=== PATIENT | male | born 1940 ===

== ENCOUNTER 2018-12-02 10:03 | Inpatient (IN) | payer MEDICARE ==
[2018-11-08 13:11] VITALS: Ht 188 cm; Wt 87.7 kg
[~2018-12-02] VITALS: Ht 188 cm; Wt 87.7 kg
[~2018-12-02 10:03] MED LIST: DILT-145 PO; FURO-45 PO; FURO20TA19 PO; LEVO-85 PO; LEVO750T27 PO; LISI5TAB25 PO; POTA10CA40 PO; RIV10 PO; THYR65TA14 PO
[2018-12-02 15:00] VITALS: BP 97/56
--- NOTE | 2018-12-02 15:36 | History & Physical ---
History of Present Illness Chief Complaint Rehabilitation History of Present Illness 77yo male with PMHx significant for recent pneumonia, atrial fibrillation, and mitral valve repair with Mitraclip on 11/29/18 at [facility]. He states he is doing "much better" since the procedure. He denies CP. No dyspnea at rest. No groin pain/swelling/bleeding. He has been working with PT/OT and ongoing rehab was recommended. History Problems: (1) History of mitral valve repair Status: Resolved (2) Chronic atrial fibrillation Status: Chronic (3) Hypothyroidism Status: Chronic (4) Mitral regurgitation Status: Chronic (5) Community acquired bacterial pneumonia Status: Acute (6) Moderate to severe pulmonary hypertension (7) (HFpEF) heart failure with preserved ejection fraction Status: Chronic Home Meds Active Scripts Levofloxacin 750 Mg Tab (LEVOFLOXACIN 750 MG TAB) 750 Mg Tablet, 750 MG PO DAILY for 10 Days, #10 TAB Prov:ROSE VEROJAZZY DO 11/11/18 Diltiazem Hcl (CARDIZEM CD) 180 Mg Cap.er.24h, 180 MG PO QDAY for 30 Days, #30 TAB Prov:[facility],JAZZY DO 11/11/18 Rivaroxaban (XARELTO 10 MG TAB (OR EQUIV)) 10 Mg Tablet, 20 MG PO QPM for 30 Days, #30 TAB Prov:ROSE STILL,JAZZY DO 11/11/18 Furosemide (FUROSEMIDE) 20 Mg Tablet, 1 TAB PO DAILY for 30 Days, #30 TAB Prov:ROSE STILL,JAZZY DO 11/11/18 Allergies: Coded Allergies: Penicillins (Verified Allergy, Unknown, 11/07/18) Hx Smoking: Yes Smoking Status: Former Smoker Hx Alcohol Use: No Hx Substance Use Disorder: No Review of Systems Constitutional: No Fever, No Chills Neurological: Weakness (generalized) Cardiovascular: No Chest Pain Exam Vital Signs Vital Signs Date Time Temp Pulse Resp B/P (MAP) Pulse Ox O2 Delivery O2 Flow Rate FiO2 12/02/18 15:00 97.6 81 18 97/56 (70) 91 Room Air General Appearance: Alert, Awake Neuro: No Gross deficits, Other (hard of hearing) ENT: Oropharynx Clear Neck: No Masses Cardiovascular: Other (Irregular with systolic murmur) Respiratory: Other (diminished breath sounds at bases) Chest: No Tenderness GI: Abd Soft and Non-Tender Extremities: Warm, Perfused, Edema (1-2+ both LE from mid-swanson distal) Integumentary: Generalized Fragile Skin Psych: Alert & Oriented X3 Assessment and Plan Problems: (1) History of mitral valve repair Status: Resolved Assessment & Plan: He appears to be doing fairly well at this point. Will plan on continuing PT/OT. He will follow up with cardiology in approximately 2 weeks. (2) (HFpEF) heart failure with preserved ejection fraction Status: Chronic Assessment & Plan: He has some persistent LE edema. Will continue metoprolol and Lasix. Watch labs. (3) Hypothyroidism Status: Chronic Assessment & Plan: He had his thyroid replacement stopped approximately 3 weeks ago. Will check TSH. (4) Chronic atrial fibrillation Status: Chronic Assessment & Plan: He appears to be in atrial fibrillation by exam. Will continue his metoprolol and Xarelto. Copies to: [facility] ; Venous Thromboembolism Antithrombotics Is Pt On Any Antithrombotics?: Yes (Xarelto) JUN DEL VALLE MD Dec 02, 2018 15:36
--- NOTE | 2018-12-02 15:37 | NUR ---
Physical Therapy Impression PT eval complete. Please see EMR Other Reports for details. Physical Therapy Goals 1. Independent bed mobility with HOB elevated but no rail. 2. Mod I transfers with either no assistive device or trekking poles. 3. Mod I gait x 150' with trekking poles. 4. Mod I ascend/descend 5 stairs with trekking poles and rail. 5. Independently pick object up off floor. 6. Improve TUG by at least 2 seconds ( <50 seconds) as indicator of decreased fall risk. Patient's Goals
--- NOTE | 2018-12-02 15:44 | Medical Nutrition Therapy ---
Nutrition Anthropometrics Height (Inches): 74 Weight (Pounds): 198 (on med unit) BMI: 25.4 Ja Nutrition Score: Ja Nutrition Risk Score: Dietary Referral Nutrition Risk Factors: Unplanned Loss >10lbs Nutrition Risk Comment: Nutritional Diagnosis Nutritional Risk Acuity 2: Pr Appetite > 3d Nutritional Risk Acuity 3: Weight Loss (stated wt loss) Nutritional Acuity: 2-Moderate Nutrition Diagnosis: Inadequate Food Intake Nutrition Etiology: Physiological Causes Nutrition Problem/Etiology/Sym: Inadequate food intake as related to discomfort post eating as evidenced by pt reported early satiety and wt loss. Adjusted Energy Requirement Re: 2200 (M- St J) Protein Requirement: 90 (1gm/kg) Fluid Requirement: 2200 (1ml/kcal) Diet Type: Cardiac Nutrition Intervention: Cont diet as ordered, Encourage intake, HS snack Additional Diet Restrictions: OFFER NUTR SUPPLEMENT Nutrition Monitoring & Eval Nutrition Goals: Eat 75-100% Meal RD Patient Assessment Time: [address] Assessment Type: RD Assessment Follow Up Date: Dec 10, 2018 Nutritional Comment: 12/02 Pt admitted s/p pneumonia and a-fib. Pt on cardiac diet. Pt reports wt loss and was eating 0-25% of meals on med floor. Will offer nutr supplment to increase kcal and protein intake. Pt was on duiretic on med unit. No meds ordered at this time. Pt has 1+ edema on 11/10- pt may demonstrate wt loss when edema resolved. Nutr significant labs: Alb 3, BUN 40, creatinine 0.9, BNO 1350. Will cont to monitor and encourage intake. MARSHA ZAMORA Dec 02, 2018 15:32
--- NOTE | 2018-12-02 16:44 | NUR ---
Occupational Therapy Impression OT evaluation completed with PT. Please refer to reports for details regarding plan of care and goals. Occupational Therapy Goals 1. Pt. to perform toileting activities with Mod I. 2. Pt. to perform showering activities with I. 3. Pt. to perform light meal prep activities with I. 4. Pt. to perform grooming activities, standing sink front, with I. 5. Pt. to increase Reynold Index of ADL score by 2 points. Patient's Goal
--- NOTE | 2018-12-02 16:54 | OT ECF NOTE ---
Type of Note: Initial Note Primary Medical Diagnosis: Weakness, mitral valve clipping surgery on 11/28/18. Occupational Therapy Evaluation Date: 11-22-18 SUBJECTIVE: Prior Hospitalization: [facility] 11/28/18 to 12-02-18. Prior Level of Function: Independent, taking "spit" bathes. Prior Living Status: Single level house Alone Community Services: Independent Home Accessibility: Stairs with rails Equipment Owned: CAD Besting [employer] Medical Complications/Past Medical History: Please refer to chart for details. Psychosocial Support: Supportive children, but they do not reside in [place] and pt. refuses to move to where they live. Pain Scale (0-10): No Pain stated during initial evaluation. OBJECTIVE: Strength: MMT: Right Left Shoulder Flexion [*] [*] Elbow Flexion [*] [*] Wrist Extension [*] [*] Getter Welder [*] [*] (5= normal, 4= good, 3= fair, 2= poor, 1= trace) ROM: Both upper extremities WFL Functional Transfer: Assistive Device: Front wheeled walker Gait belt Transfer Ability: Minimum assistance 1-person assist ADL: Upper body dressing: Assistive device: Upper body dressing ability: Set-up Lower body dressing: Assistive device: Lower body dressing ability: Toileting: Assistive device: Toileting ability: NT Grooming/hygiene: Assistive device: Grooming ability: n/T Bathing: Assistive device: Bathing ability: N/t Standardized Assessment: Reynold Index of Activities of Daily Living- Pt. scored 13/20 on this index on 12-02-18. ASSESSMENT: Pt. is a 77 year old male who was admitted from [facility] on 12/02/18 to [facility] for continued rehab to address weakness. Pt. underwent a mitral valve clipping procedure on 11/28/18 and returns to [place] with the assistance of his daughter (Acacia- who resides in [place]) and son. Pt. currently resides in [place], alone, in home that currently has no running water. Pt. had been ambulating with the use of trecking poles prior to his surgery and had been sleeping on a cot. Daughter is currently addressing the plumbing issue at his home and has bought him a new box spring and mattress. Pt. will need to be very independent, prior to d/c to home. Problem List/Current Limitations: Decreased activity marielena Generalized weakness Short Term Goals: 1. Pt. to perform toileting activities with Mod I. 2. Pt. to perform showering activities with I. 3. Pt. to perform light meal prep activities with I. 4. Pt. to perform grooming activities, standing sinkfront, with I. 5. Pt. to increase Reynold Index of ADL score by 2 points. Care Home Goals: Return home. Patient Goals: Return home Rehabilitation Prognosis: Good Barriers to Discharge: Current condition of home (no running water) PLAN: The patient will benefit from skilled occupational therapy services 5 times per week for 2 weeks including: Ther ex ADL training Safety training Ther act IADL training Transfer training Adaptive equip training Bed mobility Thank you for this referral. If you have any questions, concerns, or comments about this report or plan, please contact me at . Kimberly Bravo OTR/L Occupational Therapist [facility]
[2018-12-02] MEDS: RIVAROXABAN 10 MG TAB PO SCH (18:27)
[2018-12-02] MEDS: FERROUS SULFATE 325 MG TAB PO SCH (18:27)
[2018-12-02] MEDS ORDERED: THYR65TA14 PO (20:29)
[2018-12-02] MEDS ORDERED: RIVA20TA PO (20:34)
[2018-12-02] MEDS ORDERED: FURO-45 PO (20:34)
[2018-12-02] MEDS: GUAIFENESIN/DEXTROMETHORPHAN 5 ML PO SCH (21:29)
[2018-12-03] MEDS: GUAIFENESIN/DEXTROMETHORPHAN 5 ML PO SCH ×6 (01:00→20:32)
[2018-12-03 06:20] LABS: PLATELET COUNT, AUTOMATED 206 K/uL (150-450)
[2018-12-03] MEDS: ASPIRIN 81 MG ENTERIC COATED PO SCH (08:33)
[2018-12-03 08:35] VITALS: BP 88/56
[2018-12-03] MEDS: FLUTICASONE PROP 0.05% 16 GM SCH (09:00)
[2018-12-03] MEDS: LACTOBACILLUS COMBO NO 10 PO SCH (09:00)
[2018-12-03] MEDS: METOPROLOL SUCC XL 25 MG TABCR PO SCH (09:00)
[2018-12-03] MEDS: KELP PO SCH (09:00)
[2018-12-03] MEDS: FUROSEMIDE 40 MG TAB PO SCH (09:00)
[2018-12-03] MEDS: LOSARTAN POTASSIUM 50 MG TAB PO SCH (09:00)
[2018-12-03] MEDS: FERROUS SULFATE 325 MG TAB PO SCH ×3 (09:12→17:33)
--- NOTE | 2018-12-03 09:12 | PT ECF NOTE ---
Type of Note: Initial Note Primary Medical Diagnosis: Weakness s/p mitral valve repair with Mitraclip on 11/29/18. Physical Therapy Evaluation Date: 12/02/18 SUBJECTIVE: Prior Hospitalization: [facility] 10/2018 for pneumonia; [facility] for cardiac procedure 11/29/18-12/02/18. Prior Level of Function: Pt previously lived alone and was Mod I for mobility using trekking poles. Per Pt's daughter, Pt has not had running water in his home for approximately 1 year and she is currently trying to address this while her dad is in the hospital. Pt's daughter also reports her father, "will not use a RW, only the trekking poles". Prior Living Status: Single level house with 5 stairs with rail, Alone Community Services: No known needs Home Accessibility: Stairs with rails Equipment Owned: Trekking poles, elevated toilet seat (pt currently does not have running water in his home) Medical Complications/Past Medical History: Please see [employer] Psychosocial Support: Supportive son (living in [place]) and daughter (living in [place]). Pain Scale (0-10): Pt denies pain currently OBJECTIVE: Bed Mobility: Not observed. Transfers: Minimum assistance Assistive Device: Front wheeled walker Gait: CGA x 140' with RW, slow kiki noted, SOB noted. HR WNL, SO2 WNL. Assistive device: Front wheeled walker Timed Up and Go (>12 seconds indicated increased risk for falls): 52.65 seconds with Min A to stand ASSESSMENT: Pt presents with decreased independence with functional mobility and also decreased tolerance to activity limiting Pt's ability to be functionally independent with mobility, ADLs, and IADLs compared to prior level of function. Pt will benefit from skilled PT for strengthening, functional mobility training, and endurance training to meet the energy demands of mobility and performing ADLs. Problem List/Current Limitations: Decreased activity tolerance, Decreased strength, Generalized weakness, Shortness of breath Short Term Goals: 1. Independent bed mobility with HOB elevated but no rail. 2. Mod I transfers with either no assistive device or trekking poles. 3. Mod I gait x 150' with trekking poles. 4. Mod I ascend/descend 5 stairs with trekking poles and rail. 5. Independently pick object up off floor. 6. Improve TUG by at least 2 seconds ( <50 seconds) as indicator of decreased fall risk. Senior Living Goals: Return to prior living arrangements. Patient Goals: Return home. Rehabilitation Prognosis: Good Barriers for Discharge: Current condition of Pt's living environment, ie) no running water. PLAN: The patient will benefit from skilled physical therapy services 5 times per week for 2 weeks including: Therapeutic Exercise, Therapeutic Activities, Transfer Training, Gait Training, Stair Training, Manual Therapy, ADL's, Safety Training, Neuromuscular Re-educ., Pt/Caregiver Training, Bed Mobility Thank you for this referral. If you have any questions, concerns, or comments about this report or plan, please contact me at . Na Tabor, PT, DPT, GCS MTDD
[2018-12-03] MEDS: TURMERIC 500 MG PO SCH (09:16)
[2018-12-03] MEDS: MULTIVITAMINS TAB PO SCH (09:16)
[2018-12-03] MEDS: POTASSIUM CHL 10 MEQ TABCR PO SCH (09:22)
[2018-12-03 16:15] VITALS: BP 87/56
[2018-12-03] MEDS: RIVAROXABAN 10 MG TAB PO SCH (17:33)
[2018-12-04] MEDS: GUAIFENESIN/DEXTROMETHORPHAN 5 ML PO SCH ×6 (01:00→20:23)
[2018-12-04 08:00] VITALS: BP 111/66
[2018-12-04] MEDS: MULTIVITAMINS TAB PO SCH (09:16)
[2018-12-04] MEDS: FERROUS SULFATE 325 MG TAB PO SCH ×3 (09:16→17:07)
[2018-12-04] MEDS: POTASSIUM CHL 10 MEQ TABCR PO SCH (09:16)
[2018-12-04] MEDS: FUROSEMIDE 40 MG TAB PO SCH (09:17)
[2018-12-04] MEDS: LOSARTAN POTASSIUM 50 MG TAB PO SCH (09:17)
[2018-12-04] MEDS: METOPROLOL SUCC XL 25 MG TABCR PO SCH (09:17)
[2018-12-04] MEDS: ASPIRIN 81 MG ENTERIC COATED PO SCH (09:17)
[2018-12-04] MEDS: KELP PO SCH (09:17)
[2018-12-04] MEDS: LACTOBACILLUS COMBO NO 10 PO SCH (09:18)
[2018-12-04] MEDS: TURMERIC 500 MG PO SCH (09:18)
[2018-12-04] MEDS: FLUTICASONE PROP 0.05% 16 GM SCH (09:19)
[2018-12-04 10:29] VITALS: BP 98/53
--- NOTE | 2018-12-04 12:55 | SPEECH INITIAL EVALUATION ---
INITIAL SPEECH THERAPY EVALUATION REPORT Cognitive Communication Assessment Patient Name: Samuel Izaguirre Date of Evaluation: 12/04/2018 Patient : 38 Clinician: Niesha Fang M.S., CCC-FLIGHT COMMUNICATIONS OFFICER Treatment Dx: WNL; no cognitive linguistic deficits BACKGROUND The patient is a 77 year old male admitted to [facility] for further rehab following hospitalization at [facility] for mitral valve repair. Per chart review, the pt has been residing in a private residence with no running water for approximately one year. He has been sleeping on a cot. A ST consult was requested to analyze cognitive communicative status due to concern for appropriate decision making and ability to safely discharge to home environment. LANGUAGE/COGNITION The [place]one Cognitive Assessment (MOCA), Version 7.2 was administered with the following results: - Total Score (TS): 28/30 = WNL -Cognitive Domains Demonstrating Mild Deficits: verbal fluency, speed of processing -Cognitive Domains Demonstrating Strength: attention, orientation, immediate memory, delayed memory, problem solving, executive functioning, visuospatial skills, mental abstraction, calculations, problem solving. Functional Communication Deficits: The patient has adequate, functional cognitive/communicative skills for safe discharge. However, modifications to home environment will be necessary. SPEECH: WFL. VOICE: WFL. DYSPHAGIA: WFL. Screened w/ thins. No c/o dysphagia. SUMMARY COGNITIVE / LINGUISTIC ASSESSMENT Pt achieved a 28/30 on the MOCA assessment, which falls within normal limits for cognitive linguistic function. The pt was well-oriented to all concepts, including medical history, etiology, and pathology. The pt put forth good effort throughout encounter, sustained attention in the presence of competing environmental stimuli, demonstrated independent use of short-term memory strategies, and exhibited reasonable problem solving skills. Intermittent word finding deficits were noted during both formal and informal tasks. However, the pt independently utilized appropriate strategies to support infrequent instances of anomia. The pt also demonstrated mild response delay when presented with assessment prompts and interview questions. Processing delay did not result in cognitive linguistic errors. In fact, spending extra time on assessment tasks appeared to assist in response accuracy and error awareness. Condition of the pts home living environment does not appear reflective of cognitive linguistic deficits or inability to make reasonable decisions. From a strictly cognitive linguistic stand point, the pt would be safe for discharge without further ST interventions. Skilled services do not appear to be warranted at this time. Please do not hesitate to contact ST with questions or concerns. Thank you for this referral. Call [phone] Niesha Fang M.S., CCC-FLIGHT COMMUNICATIONS OFFICER [*] [facility]AHIDA
--- NOTE | 2018-12-04 12:57 | NUR ---
ST EVALUATION Assessment complete. Further interventions not warranted. Cognitive linguistic status is WNL. Please see report for detailed information. MOCA Total Score: 2830
--- NOTE | 2018-12-04 13:11 | NUR ---
Occupational Therapy Impression Mod (I) supine to sit with bed rail. CGA ambulation in room with RW. No loss of balance, incorporating tight turns. (I) UB dressing. Independent threading LB clothing. SBA pull clothing over hips. SBA toileting. SBA grooming/hygiene standing sinkfront. SpO2 and HR WNL on 1L. No c/o of dizziness with mobility/ADLs. Continue POC to improve tolerance for ADLs/IADLs. Occupational Therapy Goals 1. Pt. to perform toileting activities with Mod I. 2. Pt. to perform showering activities with I. 3. Pt. to perform light meal prep activities with I. 4. Pt. to perform grooming activities, standing sinkfront, with I. 5. Pt. to increase Reynold Index of ADL score by 2 points. Patient's Goal
--- NOTE | 2018-12-04 13:27 | NUR ---
Physical Therapy Impression Pt able to stand from chair today with CGA/SBA. Pt ambulated using his personal walking sticks (2) and CGA. Pt ambulated with extremely slow kiki. Pt able to maintain SO2 >88% on room air during PT tx, nurse notified. Encouraged additional ambulation after rest break, Pt declined. Physical Therapy Goals 1. Independent bed mobility with HOB elevated but no rail. 2. Mod I transfers with either no assistive device or trekking poles. 3. Mod I gait x 150' with trekking poles. 4. Mod I ascend/descend 5 stairs with trekking poles and rail. 5. Independently pick object up off floor. 6. Improve TUG by at least 2 seconds ( <50 seconds) as indicator of decreased fall risk. Patient's Goals
[2018-12-04 16:45] VITALS: BP 90/50
[2018-12-04] MEDS: RIVAROXABAN 10 MG TAB PO SCH (17:07)
[2018-12-04 19:35] VITALS: BP 89/58
[2018-12-05] MEDS: GUAIFENESIN/DEXTROMETHORPHAN 5 ML PO SCH ×6 (01:00→20:28)
[2018-12-05 08:30] VITALS: BP 103/61
[2018-12-05] MEDS ORDERED: FUROSEMIDE 40 MG TAB PO SCH (09:00)
[2018-12-05] MEDS: LOSARTAN POTASSIUM 50 MG TAB PO SCH (09:00)
[2018-12-05] MEDS: METOPROLOL SUCC XL 25 MG TABCR PO SCH (09:30)
[2018-12-05] MEDS: FERROUS SULFATE 325 MG TAB PO SCH ×3 (09:30→17:09)
[2018-12-05] MEDS: ASPIRIN 81 MG ENTERIC COATED PO SCH (09:30)
[2018-12-05] MEDS: MULTIVITAMINS TAB PO SCH (09:30)
[2018-12-05] MEDS: POTASSIUM CHL 10 MEQ TABCR PO SCH (09:30)
[2018-12-05] MEDS: KELP PO SCH (09:31)
[2018-12-05] MEDS: FLUTICASONE PROP 0.05% 16 GM SCH (09:32)
[2018-12-05] MEDS: TURMERIC 500 MG PO SCH (09:32)
[2018-12-05] MEDS: LACTOBACILLUS COMBO NO 10 PO SCH (09:32)
--- NOTE | 2018-12-05 09:38 | NUR ---
Physical Therapy Impression Pt demonstrates fair balance with ambulation with use of bilateral trekking poles. Emphasis on obstacle negotiation and turns with ambulation today, pt with no LOB, but continues to ambulate with a slowed kiki. Pt reporting L) knee pain with ambulation. SPO2 WNL on room air during mobility. PT instructed patient in seated LE ther-ex with emphasis on eccentric control and achieving full ROM with exercises. Pt reported increased L) knee pain with repetition, PT instructed patient to avoid exacerbating knee pain on that side. Physical Therapy Goals 1. Independent bed mobility with HOB elevated but no rail. 2. Mod I transfers with either no assistive device or trekking poles. 3. Mod I gait x 150' with trekking poles. 4. Mod I ascend/descend 5 stairs with trekking poles and rail. 5. Independently pick object up off floor. 6. Improve TUG by at least 2 seconds ( <50 seconds) as indicator of decreased fall risk. Patient's Goals
--- NOTE | 2018-12-05 10:30 | NUR ---
5-day MDS completed with pt. C: 15, D: 01, E: no concerns, Q: pt plans to DC to community, pt provided with information, but no referrals made yet. WIll continue to follow for DC needs.
--- NOTE | 2018-12-05 11:20 | NUR ---
Occupational Therapy Impression Pt perseverating on blood pressure medications throughout tx. Asymptomatic with mobility, SpO2 >90% on room air. Nursing aware and addressing pt medication questions. Improved endurance and mobility this date with use of trekking poles. Pt will continue to benefit from OT services to improve balance and safety for ADLs/functional mobility. Occupational Therapy Goals 1. Pt. to perform toileting activities with Mod I. 2. Pt. to perform showering activities with I. 3. Pt. to perform light meal prep activities with I. 4. Pt. to perform grooming activities, standing sinkfront, with I. 5. Pt. to increase Reynold Index of ADL score by 2 points. Patient's Goal
--- NOTE | 2018-12-05 13:32 | Hospitalist Progress Note ---
Subjective Progress Notes Subjective The patient has many questions about his medications. He denies any new issues. Physical Exam Vital Signs Date Time Temp Pulse Resp B/P (MAP) Pulse Ox O2 Delivery O2 Flow Rate FiO2 12/05/18 08:30 98.0 70 16 103/61 (75) 95 Room Air 12/05/18 05:30 1.0 Intake and Output 12/05/18 07:00 Intake Total 1800 ml Output Total 750 ml Balance 1050 ml Intake Oral 1800 ml Output Urine Total 750 ml # Voids 4 # Bowel Movements 2 General Appearance: Alert, Awake, No Acute Distress Neuro: No Gross deficits Eyes: PERRLA Cardiovascular: Regular Rate and Rhythm (With 2/6 JORDI heard best at the apex.), Other (Edema to mid swanson, 2+ at the ankle.) Respiratory: No Respiratory Distress, Clear to Auscultation GI: Soft and Non-Tender Extremities: Edema (See CV above.) Integumentary: Generalized Fragile Skin Psych: Appropriate Mood & Affect Result Diagram: 12/03/1860912/03/18609 Assessment and Plan Problems: (1) History of mitral valve repair Status: Resolved Assessment & Plan: He appears to be doing fairly well at this point. Will plan on continuing PT/OT. He will follow up with cardiology in approximately 2 weeks. (2) (HFpEF) heart failure with preserved ejection fraction Status: Chronic Assessment & Plan: He has some persistent LE edema. His BUN was elevated on admission and his BP has been low. Will decrease his Lasix to 20mg daily and continue to monitor his edema and weight. He is now in a regular rhythm which will also be beneficial. (3) Hypothyroidism Status: Chronic Assessment & Plan: He had his thyroid replacement stopped approximately 3 weeks ago. His TSH is 23. Looking back, it was elevated in October at 7 and his dose was not changed due to being acutely ill. He is on "nature thyroid" 4.5-65mg tablets daily (292.5mg). This is equivalent to 48.75mcg of levothyroxine. [facility] does not have his thyroid medication on formulary. Since his TSH has been consistently high, will place him on 50mcg of levothyroxine here. He plans to follow up with MICHAEL Davis, shortly after discharge. She can recheck his TSH in 4-6 weeks and adjust his dose as needed. (4) Chronic atrial fibrillation Status: Chronic Assessment & Plan: He appeared to be in atrial fibrillation by exam on admission. Now he is in a regular rhythm. With his history, he may be going in and out of a fib. Will continue his metoprolol and Xarelto. He will follow up with cardiology after discharge. Time Spent on Plan of Care: < 30 min JIMMY DEL VALLE MD Dec 05, 2018 13:32
[2018-12-05] MEDS ORDERED: POLYETHYLENE GLYCOL 17 GM PKT PO PRN (13:40)
[2018-12-05] MEDS ORDERED: MAGNESIUM HYDROXIDE* 30ML UDCP PO PRN (13:40)
[2018-12-05] MEDS ORDERED: BISACODYL 10 MG SUPP PR PRN (13:40)
[2018-12-05] MEDS: DOCUSATE SODIUM 100 MG CAP PO SCH ×2 (14:09→20:28)
[2018-12-05] MEDS: LEVOTHYROXINE SOD 0.05 MG TAB PO SCH (14:09)
[2018-12-05 16:00] VITALS: BP 89/60
[2018-12-05] MEDS: RIVAROXABAN 10 MG TAB PO SCH (17:09)
[2018-12-05] MEDS: SALINE 0.65% NAS SPR 44 ML BTL PRN ×2 (17:12→20:28)
[2018-12-05 20:50] VITALS: BP 90/60
[2018-12-06] MEDS: GUAIFENESIN/DEXTROMETHORPHAN 5 ML PO SCH ×6 (01:00→21:00)
[2018-12-06] MEDS: LEVOTHYROXINE SOD 0.05 MG TAB PO SCH (05:46)
[2018-12-06] MEDS ORDERED: LEVOTHYROXINE SOD 0.05 MG TAB PO SCH (06:00)
[2018-12-06 06:30] LABS: PLATELET COUNT, AUTOMATED 240 K/uL (150-450)
--- NOTE | 2018-12-06 07:36 | NUR ---
Pt daily weight done this AM fully dressed and eating breakfast.
[2018-12-06 08:00] VITALS: BP 93/65
[2018-12-06] MEDS: LOSARTAN POTASSIUM 50 MG TAB PO SCH (09:00)
[2018-12-06] MEDS: METOPROLOL SUCC XL 25 MG TABCR PO SCH (09:00)
[2018-12-06] MEDS: KELP PO SCH (09:00)
[2018-12-06] MEDS: FUROSEMIDE 20 MG TAB PO SCH (09:00)
[2018-12-06] MEDS: FLUTICASONE PROP 0.05% 16 GM SCH (09:11)
[2018-12-06] MEDS: ASPIRIN 81 MG ENTERIC COATED PO SCH (09:12)
[2018-12-06] MEDS: FERROUS SULFATE 325 MG TAB PO SCH ×3 (09:12→17:24)
[2018-12-06] MEDS: POTASSIUM CHL 10 MEQ TABCR PO SCH (09:12)
[2018-12-06] MEDS: DOCUSATE SODIUM 100 MG CAP PO SCH ×2 (09:12→21:00)
[2018-12-06] MEDS: TURMERIC 500 MG PO SCH (09:12)
[2018-12-06] MEDS: MULTIVITAMINS TAB PO SCH (09:12)
[2018-12-06] MEDS: LACTOBACILLUS COMBO NO 10 PO SCH (09:13)
--- NOTE | 2018-12-06 12:53 | NUR ---
Physical Therapy Impression Pt reporting prior to ambulation with therapy that it would be a "short one" today. Noting he feels fatigued, perseverating on his BP. Per nursing report pt's BP immediately prior to ambulation was 97/55 which has been steady for him. Slow ambulation x 125' with walking sticks. Pt requires encouragement to increase duration of therapy session, refused seated or standing ther. ex this date. Cont. with POC. Physical Therapy Goals 1. Independent bed mobility with HOB elevated but no rail. 2. Mod I transfers with either no assistive device or trekking poles. 3. Mod I gait x 150' with trekking poles. 4. Mod I ascend/descend 5 stairs with trekking poles and rail. 5. Independently pick object up off floor. 6. Improve TUG by at least 2 seconds ( <50 seconds) as indicator of decreased fall risk. Patient's Goals
[2018-12-06 13:00] VITALS: BP 111/61
--- NOTE | 2018-12-06 14:43 | NUR ---
Pt out on pass with daughter for Dr. Moreira with PCP.
[2018-12-06 17:20] VITALS: BP 100/60
[2018-12-06] MEDS: RIVAROXABAN 10 MG TAB PO SCH (17:25)
[2018-12-07] MEDS: GUAIFENESIN/DEXTROMETHORPHAN 5 ML PO SCH ×6 (01:00→21:18)
[2018-12-07] MEDS: THYROID PORK 65 MG PO SCH (05:45)
[2018-12-07 08:01] VITALS: BP 109/64
[2018-12-07] MEDS: LOSARTAN POTASSIUM 50 MG TAB PO SCH (08:02)
[2018-12-07] MEDS: FUROSEMIDE 20 MG TAB PO SCH (08:02)
[2018-12-07] MEDS: DOCUSATE SODIUM 100 MG CAP PO SCH ×2 (08:27→21:18)
[2018-12-07] MEDS: MULTIVITAMINS TAB PO SCH (08:27)
[2018-12-07] MEDS: FLUTICASONE PROP 0.05% 16 GM SCH (08:27)
[2018-12-07] MEDS: POTASSIUM CHL 10 MEQ TABCR PO SCH (08:27)
[2018-12-07] MEDS: ASPIRIN 81 MG ENTERIC COATED PO SCH (08:27)
[2018-12-07] MEDS: FERROUS SULFATE 325 MG TAB PO SCH ×3 (08:27→17:14)
[2018-12-07] MEDS: METOPROLOL SUCC XL 25 MG TABCR PO SCH (08:27)
[2018-12-07] MEDS: LACTOBACILLUS COMBO NO 10 PO SCH (08:28)
[2018-12-07] MEDS: TURMERIC 500 MG PO SCH (08:28)
[2018-12-07] MEDS: KELP PO SCH (08:28)
[2018-12-07 15:00] VITALS: BP 107/64
[2018-12-07] MEDS: RIVAROXABAN 10 MG TAB PO SCH (17:14)
[2018-12-08] MEDS: GUAIFENESIN/DEXTROMETHORPHAN 5 ML PO SCH ×6 (00:44→20:42)
[2018-12-08] MEDS: THYROID PORK 65 MG PO SCH (05:40)
[2018-12-08 08:15] VITALS: BP 91/35
--- NOTE | 2018-12-08 08:15 | NUR ---
Pt hyperventilating Pt found sitting in his recliner hyperventilating, stated he has to breathe like that because was feeling like he would pass out if he didn't. Oxygen sats 98%, heart rate 70 and steady, BP 103/58. He stated that he was sure that that feeling was related to his taking his thyroid medication "an hour ago." I talked him into stopping the hyperventilation and breathing normally, but it was a difficult sell; he insisted that he was going to pass out and fall on the floor and that it would be my fault. I explained that dizziness is generally due to a drop in blood pressure, and that causing blood pressures to drop is inconsistent with what thyroid medications do.
[2018-12-08] MEDS: LOSARTAN POTASSIUM 50 MG TAB PO SCH (09:00)
[2018-12-08] MEDS: KELP PO SCH (09:00)
[2018-12-08] MEDS: POTASSIUM CHL 10 MEQ TABCR PO SCH (09:00)
[2018-12-08] MEDS: FUROSEMIDE 20 MG TAB PO SCH (09:00)
[2018-12-08] MEDS: METOPROLOL SUCC XL 25 MG TABCR PO SCH (09:00)
[2018-12-08] MEDS: MULTIVITAMINS TAB PO SCH (09:08)
[2018-12-08] MEDS: DOCUSATE SODIUM 100 MG CAP PO SCH ×2 (09:08→20:42)
[2018-12-08] MEDS: ASPIRIN 81 MG ENTERIC COATED PO SCH (09:09)
[2018-12-08] MEDS: FERROUS SULFATE 325 MG TAB PO SCH ×3 (09:09→17:12)
[2018-12-08] MEDS: FLUTICASONE PROP 0.05% 16 GM SCH (09:10)
[2018-12-08] MEDS: LACTOBACILLUS COMBO NO 10 PO SCH (09:11)
[2018-12-08] MEDS: TURMERIC 500 MG PO SCH (09:11)
[2018-12-08 09:23] VITALS: BP 103/58
[2018-12-08 15:54] VITALS: BP 102/53
[2018-12-08] MEDS: RIVAROXABAN 10 MG TAB PO SCH (17:12)
[2018-12-09] MEDS: GUAIFENESIN/DEXTROMETHORPHAN 5 ML PO SCH ×6 (00:45→20:52)
[2018-12-09] MEDS: THYROID PORK 65 MG PO SCH (05:54)
[2018-12-09 07:40] VITALS: BP 95/64
[2018-12-09] MEDS: POTASSIUM CHL 10 MEQ TABCR PO SCH (09:00)
[2018-12-09] MEDS: LOSARTAN POTASSIUM 50 MG TAB PO SCH (09:00)
[2018-12-09] MEDS: METOPROLOL SUCC XL 25 MG TABCR PO SCH (09:00)
[2018-12-09] MEDS: KELP PO SCH (09:00)
[2018-12-09] MEDS: FUROSEMIDE 20 MG TAB PO SCH (09:00)
[2018-12-09] MEDS: FLUTICASONE PROP 0.05% 16 GM SCH (09:12)
[2018-12-09] MEDS: TURMERIC 500 MG PO SCH (09:13)
[2018-12-09] MEDS: LACTOBACILLUS COMBO NO 10 PO SCH (09:13)
[2018-12-09] MEDS: DOCUSATE SODIUM 100 MG CAP PO SCH ×2 (09:16→20:52)
[2018-12-09] MEDS: MULTIVITAMINS TAB PO SCH (09:16)
[2018-12-09] MEDS: ASPIRIN 81 MG ENTERIC COATED PO SCH (09:17)
[2018-12-09] MEDS: FERROUS SULFATE 325 MG TAB PO SCH ×3 (09:17→17:43)
--- NOTE | 2018-12-09 12:28 | NUR ---
Occupational Therapy Impression Pt with one instance of left knee buckling upon standing. Requiring Min A from therapist to maintain upright posture. Pt agreeable to don left knee brace for additional support. CGA/close SBA ambulation [id number] with RW. Daughter reports there is now room in home to support a RW. Mod (I) toileting. Mod (I) bathtub transfer. Extensive discussion and education re: home set-up and AE needs with pt and daughter. Continue POC. Occupational Therapy Goals 1. Pt. to perform toileting activities with Mod I. 2. Pt. to perform showering activities with I. 3. Pt. to perform light meal prep activities with I. 4. Pt. to perform grooming activities, standing sinkfront, with I. 5. Pt. to increase Reynold Index of ADL score by 2 points. Patient's Goal
--- NOTE | 2018-12-09 13:05 | NUR ---
Physical Therapy Impression Pt is continuing to make progress with his mobility. He was inquiring about being indep. in his room, but is refusing to lock the breaks on his recliner chair prior to completing transfers, thus increasing his risk of falls. No instances of knee buckling during session. Ambulation x 250' with FWW with a rest break between bouts. Trial of stairs on 3" stairs to simulate entry into pt's home. CGA throughout. Cont. with POC. Physical Therapy Goals 1. Independent bed mobility with HOB elevated but no rail. 2. Mod I transfers with either no assistive device or trekking poles. 3. Mod I gait x 150' with trekking poles. 4. Mod I ascend/descend 5 stairs with trekking poles and rail. 5. Independently pick object up off floor. 6. Improve TUG by at least 2 seconds ( <50 seconds) as indicator of decreased fall risk. Patient's Goals
--- NOTE | 2018-12-09 16:04 | Medical Nutrition Therapy ---
Nutrition Anthropometrics Height (Inches): 74 Weight (Pounds): 195 Weight (Calculated Kilograms): 88.451 BMI: 25.4 Ja Nutrition Score: Adequate Ja Nutrition Risk Score: 18 Dietary Referral Nutrition Risk Factors: Unplanned Loss >10lbs Nutrition Risk Comment: Lost 32 pounds in 9 days when put on Lasix Nutritional Diagnosis Nutritional Risk Acuity 3: Weight Loss (stated wt loss) Nutritional Risk Acuity 4: Good Appetite Nutritional Acuity: 3-Mild Nutrition Diagnosis: Inadequate Food Intake Nutrition Etiology: Physiological Causes Nutrition Problem/Etiology/Sym: Inadequate food intake as related to discomfort post eating as evidenced by pt reported early satiety and wt loss. Adjusted Energy Requirement Re: 2200 (M- St J) Protein Requirement: 90 (1gm/kg) Fluid Requirement: 2200 (1ml/kcal) Diet Type: Cardiac Nutrition Intervention: Cont diet as ordered, Encourage intake, HS snack Food Likes: brk at 7:00 am daily Food Dislikes: banana Additional Diet Restrictions: OFFER NUTR SUPPLEMENT Nutrition Monitoring & Eval Nutrition Follow-Up: Good Intake RD Patient Assessment Time: [address] Assessment Type: RD Re-Assessment Patient Nutrition Acuity: 3-Mild Follow Up Date: Dec 17, 2018 Nutritional Comment: 12/02 Pt admitted s/p pneumonia and a-fib. Pt on cardiac diet. Pt reports wt loss and was eating 0-25% of meals on med floor. Will offer nutr supplment to increase kcal and protein intake. Pt was on duiretic on med unit. No meds ordered at this time. Pt has 1+ edema on 11/10- pt may demonstrate wt loss when edema resolved. Nutr significant labs: Alb 3, BUN 40, creatinine 0.9, BNP 1350. Will cont to monitor and encourage intake. VAN 12/09 Pt cont on CHF diet. Pt eating 87% of small to regular portions. Wt is up 2# from admission to ECF. Alb up to 3.3. Will cont to monitor and encourage intake. MARSHA ZAMORA Dec 09, 2018 16:04
[2018-12-09 16:45] VITALS: BP 113/78
[2018-12-09] MEDS: RIVAROXABAN 10 MG TAB PO SCH (17:46)
[2018-12-10] MEDS: GUAIFENESIN/DEXTROMETHORPHAN 5 ML PO SCH ×6 (01:08→20:27)
[2018-12-10] MEDS: THYROID PORK 65 MG PO SCH (05:55)
[2018-12-10 07:25] VITALS: BP 119/72
[2018-12-10] MEDS: DOCUSATE SODIUM 100 MG CAP PO SCH ×2 (08:20→20:26)
[2018-12-10] MEDS: FLUTICASONE PROP 0.05% 16 GM SCH (08:20)
[2018-12-10] MEDS: KELP PO SCH (08:22)
[2018-12-10] MEDS: ASPIRIN 81 MG ENTERIC COATED PO SCH (08:22)
[2018-12-10] MEDS: MULTIVITAMINS TAB PO SCH (08:22)
[2018-12-10] MEDS: FERROUS SULFATE 325 MG TAB PO SCH ×3 (08:22→17:25)
[2018-12-10] MEDS: METOPROLOL SUCC XL 25 MG TABCR PO SCH (08:22)
[2018-12-10] MEDS: TURMERIC 500 MG PO SCH (08:23)
[2018-12-10] MEDS: LACTOBACILLUS COMBO NO 10 PO SCH (08:23)
[2018-12-10] MEDS: LOSARTAN POTASSIUM 50 MG TAB PO SCH (09:00)
[2018-12-10] MEDS: FUROSEMIDE 20 MG TAB PO SCH (09:00)
[2018-12-10] MEDS: POTASSIUM CHL 10 MEQ TABCR PO SCH (09:00)
--- NOTE | 2018-12-10 11:37 | NUR ---
Occupational Therapy Impression SBA ambulation [id number] with RW. No loss of balance, good safety awareness. Mod (I) simulated light meal prep with use of microwave as pt will complete at home. SpO2 WNL on room air throughout. Pt progressing well towards OT goals. Will schedule home evaluation this afternoon at care conference. Occupational Therapy Goals 1. Pt. to perform toileting activities with Mod I. 2. Pt. to perform showering activities with I. 3. Pt. to perform light meal prep activities with I. 4. Pt. to perform grooming activities, standing sinkfront, with I. 5. Pt. to increase Reynold Index of ADL score by 2 points. Patient's Goal
--- NOTE | 2018-12-10 15:16 | NUR ---
Physical Therapy Impression Pt completed initial TUG test with FWW in 37 seconds. Following brief rest break, pt then completed TUG again with B) walking sticks in 41 seconds. Pt then sat to rest and completed ambulation with B) walking sticks to/from rehab dept (~200') with SBA/Modified indep and longer time period required to complete turn in safe manner. Pt also addressed picking things up from the floor and notes that he would never attempt to do this from standing, but rather he would sit and use a department supervisor to bring the object closer until he could bend over safely to retrieve it. Pt demonstrated this with three varieties of objects, including if his walking stick had fallen to the ground. Physical Therapy Goals 1. Independent bed mobility with HOB elevated but no rail. 2. Mod I transfers with either no assistive device or trekking poles. 3. Mod I gait x 150' with trekking poles. 4. Mod I ascend/descend 5 stairs with trekking poles and rail. 5. Independently pick object up off floor. 6. Improve TUG by at least 2 seconds ( <50 seconds) as indicator of decreased fall risk. Patient's Goals
[2018-12-10 15:35] VITALS: BP 97/65
[2018-12-10] MEDS: RIVAROXABAN 10 MG TAB PO SCH (17:25)
[2018-12-11] MEDS: GUAIFENESIN/DEXTROMETHORPHAN 5 ML PO SCH ×6 (01:00→20:39)
[2018-12-11] MEDS: THYROID PORK 65 MG PO SCH (05:17)
[2018-12-11 08:00] VITALS: BP 104/65
[2018-12-11] MEDS: MULTIVITAMINS TAB PO SCH (08:48)
[2018-12-11] MEDS: METOPROLOL SUCC XL 25 MG TABCR PO SCH (08:48)
[2018-12-11] MEDS: KELP PO SCH (08:48)
[2018-12-11] MEDS: FERROUS SULFATE 325 MG TAB PO SCH ×4 (08:48→13:13)
[2018-12-11] MEDS: ASPIRIN 81 MG ENTERIC COATED PO SCH (08:48)
[2018-12-11] MEDS: FLUTICASONE PROP 0.05% 16 GM SCH (08:48)
[2018-12-11] MEDS: LACTOBACILLUS COMBO NO 10 PO SCH (08:49)
[2018-12-11] MEDS: TURMERIC 500 MG PO SCH (08:49)
[2018-12-11] MEDS: LOSARTAN POTASSIUM 50 MG TAB PO SCH (09:00)
[2018-12-11] MEDS: DOCUSATE SODIUM 100 MG CAP PO SCH (09:00)
[2018-12-11] MEDS: POTASSIUM CHL 10 MEQ TABCR PO SCH (09:00)
[2018-12-11] MEDS: FUROSEMIDE 20 MG TAB PO SCH (09:00)
--- NOTE | 2018-12-11 10:35 | NUR ---
Occupational Therapy Impression SBA ambulation x100ft with trekking poles. Ambulation on various surfaces and crossing thresholds. UB ther ex HEP reviewed. Pt declined shower and completing extended tub transfer. Plan for home evaluation tomorrow at 10am. Occupational Therapy Goals 1. Pt. to perform toileting activities with Mod I. 2. Pt. to perform showering activities with I. 3. Pt. to perform light meal prep activities with I. 4. Pt. to perform grooming activities, standing sinkfront, with I. 5. Pt. to increase Reynold Index of ADL score by 2 points. Patient's Goal
--- NOTE | 2018-12-11 13:21 | NUR ---
DC and 14-day MDS completed with pt. C: 13, D: 02, E: no concerns, Q: pt plans to DC to community, referral sent for [facility]. Pt denies any other DC needs.
--- NOTE | 2018-12-11 13:42 | NUR ---
Physical Therapy Impression Pt ambulated first bout with B walking sticks with antalgic gait pattern requiring CGA for safety. Pt only able to tolerate 15' using walking sticks due to knee pain and Pt reports of SOB (no increase in RR noted). HR and SO2 WNL after this bout. Pt agreeable to use RW to ambulate and tolerated 2 bouts of 75' using RW with SBA and increase in safety with ambulation noted. HR and SO2 WNL after each bout. After second bout, Pt reported feeling "funny" and requested BP be measured with 100/80 reported by nursing. Pt educated on increased tolerance to ambulation noted with use of RW, with returned verbal understanding. Pt also educated on need to push himself in order to gain endurance. Pt agreed to discuss this with record press tender on his visit Sunday. Physical Therapy Goals 1. Independent bed mobility with HOB elevated but no rail. 2. Mod I transfers with either no assistive device or trekking poles. 3. Mod I gait x 150' with trekking poles. 4. Mod I ascend/descend 5 stairs with trekking poles and rail. 5. Independently pick object up off floor. 6. Improve TUG by at least 2 seconds ( <50 seconds) as indicator of decreased fall risk. Patient's Goals
[2018-12-11] MEDS ORDERED: ASPI81TA86 PO (14:50)
[2018-12-11] MEDS ORDERED: FLUT16SP19 (14:50)
[2018-12-11] MEDS ORDERED: [UNRECOGNIZED DRUG - CODE] PO (14:50)
[2018-12-11] MEDS ORDERED: FERR-53 PO (14:50)
[2018-12-11] MEDS ORDERED: LACTOBACILLUS COMBO NO 10 PO (14:50)
[2018-12-11] MEDS ORDERED: METO25TA23 PO (14:50)
[2018-12-11] MEDS ORDERED: Turmeric PO (14:50)
--- NOTE | 2018-12-11 15:30 | Hospitalist Depart ---
Discharge Summary Reason for Hosp/Final Diag: (1) History of mitral valve repair Status: Resolved Hospital Course & Plan: He appears to be doing fairly well at this point. He h as been working with PT/OT. He will follow up with cardiology on Sunday. (2) (HFpEF) heart failure with preserved ejection fraction Status: Chronic Hospital Course & Plan: He has some persistent LE edema. His BUN was elevated on admission and his BP has been low. His Lasix has been stopped secondary to hypotension and his daily weights have maintained the same without treatment. He is now in a regular rhythm which will also be beneficial. (3) Hypothyroidism Status: Chronic Hospital Course & Plan: He had his thyroid replacement stopped approximately 3 weeks ago. His TSH is 23. Looking back, it was elevated in October at 7 and his dose was not changed due to being acutely ill. He is on "nature thyroid" 4.5- 65mg tablets daily (292.5mg). This is equivalent to 48.75mcg of levothyroxine. [facility] does not have his thyroid medication on formulary. He plans to follow up with MICHAEL Davis, shortly after discharge. She can recheck his TSH in 4-6 weeks and adjust his dose as needed. (4) Chronic atrial fibrillation Status: Chronic Hospital Course & Plan: He appeared to be in atrial fibrillation by exam on admission. Now he is in a regular rhythm. With his history, he may be going in and out of a fib. Will continue his metoprolol and Xarelto. He will follow up with cardiology after discharge. Departure Latest Vital Signs Vital Signs 12/10/18 12/11/18 12/11/18 01:26 08:00 10:00 Temp 97.0 Pulse 74 Resp 16 B/P (MAP) 104/65 (78) Pulse Ox 93 O2 Delivery Room Air O2 Flow Rate 1.0 Weight (Pounds): 194 Weight (Ounces): 12.8 Condition: Improved Discharge: Home, Self Care PT/OT Follow Up For: PT For Strengthening, PT Evaluation and Treat Home Health RN Follow Up For: Nursing Assessment Discharge Instructions Home Meds Active Scripts Fluticasone Prop 50 Mcg Ns (FLONASE 50 MCG NS) 16 Gm [place].susp, 1 SPRAY NA QDAY, #1 SPRAY Prov:WHITLEY GUERRERO 12/11/18 Kelp (KELP) 150 Mcg Tablet, 1 EA PO DAILY, #30 TAB Prov:WHITLEY GUERRERO [facility] 12/11/18 [Lactobacillus Combo No.10] 1 EA CAP No Conflict Check, 2 EA PO DAILY, #60 TAB Prov:WHITLEY GUERRERO [employer] 12/11/18 [Turmeric] 500 MG CAP No Conflict Check, 500 MG PO DAILY, #30 TAB Prov:WHITLEY GUERRERO [facility] 12/11/18 Metoprolol Succinate (METOPROLOL SUCCINATE) 25 Mg Tab.er.24h, 25 MG PO QDAY, #30 TAB Prov:WHITLEY GUERRERO [facility] 12/11/18 Ferrous Sulfate (FERROUS SULFATE) 325 Mg Tablet, 325 MG PO DAILY, #30 TAB Prov:WHITLEY GUERRERO [facility] 12/11/18 Aspirin (ASPIRIN EC) 81 Mg Tablet.dr, 81 MG PO QDAY, #30 TAB Prov:WHITLEY GUERRERO [facility] 12/11/18 Reported Medications Rivaroxaban 20 Mg (XARELTO 20 MG) 20 Mg Tablet, 20 MG PO QPM 12/02/18 Thyroid,Pork (NATURE-THROID) 65 Mg Tablet, 4.5 TAB PO QDAY 12/02/18 Discontinued Reported Medications Furosemide (FUROSEMIDE) 20 Mg Tablet, 1 TAB PO QAM, TAB 12/02/18 Discontinued Scripts Diltiazem Hcl (CARDIZEM CD) 180 Mg Cap.er.24h, 180 MG PO QDAY for 30 Days, #30 TAB Prov:ROSE STILL,JAZZY DO 11/11/18 Diet: 2 Gram Sodium (NA) Activity: As Tolerated, With Walker Special Instructions: Follow up with Cardiology as scheduled. Follow up with Michelle RODRIGUEZ for thryoid. Wear 2L of oxygen at night for pulmonary hypertension. Copies to: WHIT PATTERSON ; Venous Thromboembolism Antithrombotics Is Pt On Any Antithrombotics?: Yes (Xarelto) [id number] Certification Face to Face Home Health Certification Institutional Provider conducted the [id number] encounter. Electronic Undersigning Physician Certifies Home Health. I certify that the patient has been under my care and that I had a [id number] encounter that meets the physician [id number] encounter requirements with this patient. This patient is home-bound due to safety issues and continues to require assistance with ADL's. I certify that based on my findings, that Nursing, Aides and the following Home Health services are medically necessary. Medical Necessity: Nursing, Rehab Date Face to Face Conducted: Dec 13, 2018 WHITLEY GUERRERO Dec 11, 2018 15:30
--- NOTE | 2018-12-11 15:32 | Hospitalist Progress Note ---
Subjective Progress Notes Subjective He reports he has been doing well with therapy. He plans to discharge Sunday. Patient Complains of: Cardiovascular: No: Chest Pain Respiratory: No: Shortness of Breath Physical Exam Vital Signs Date Time Temp Pulse Resp B/P (MAP) Pulse Ox O2 Delivery O2 Flow Rate FiO2 12/11/18 10:00 93 Room Air 12/11/18 08:00 97.0 74 16 104/65 (78) 12/10/18 01:26 1.0 Intake and Output 12/11/18 07:00 Intake Total 600 ml Balance 600 ml Intake Oral 600 ml # Voids 6 # Bowel Movements 3 General Appearance: Alert, Awake, No Acute Distress, Afebrile Neuro: No Gross deficits Cardiovascular: Regular Rate and Rhythm Respiratory: No Respiratory Distress, Clear to Auscultation GI: Soft and Non-Tender Extremities: Warm, Perfused, Edema (2+ pitting edema to bilateral lower extremities) Psych: Alert & Oriented X3, Appropriate Mood & Affect Assessment and Plan Problems: (1) History of mitral valve repair Status: Resolved Assessment & Plan: He appears to be doing fairly well at this point. He has been working with PT/OT. He will follow up with cardiology on Sunday. (2) (HFpEF) heart failure with preserved ejection fraction Status: Chronic Assessment & Plan: He has some persistent LE edema. His BUN was elevated on admission and his BP has been low. His Lasix has been stopped secondary to hypotension and his daily weights have maintained the same without treatment. He is now in a regular rhythm which will also be beneficial. (3) Hypothyroidism Status: Chronic Assessment & Plan: He had his thyroid replacement stopped approximately 3 weeks ago. His TSH is 23. Looking back, it was elevated in October at 7 and his dose was not changed due to being acutely ill. He is on "nature thyroid" 4.5-65mg tablets daily (292.5mg). This is equivalent to 48.75mcg of levothyroxine. [facility] does not have his thyroid medication on formulary. He plans to follow up with MICHAEL Davis, shortly after discharge. She can recheck his TSH in 4-6 weeks and adjust his dose as needed. (4) Chronic atrial fibrillation Status: Chronic Assessment & Plan: He appeared to be in atrial fibrillation by exam on admission. Now he is in a regular rhythm. With his history, he may be going in and out of a fib. Will continue his metoprolol and Xarelto. He will follow up with cardiology after discharge. WHITLEY GUERRERO Dec 11, 2018 15:32
[2018-12-11 17:00] VITALS: BP 102/68
[2018-12-11] MEDS: RIVAROXABAN 10 MG TAB PO SCH (17:19)
[2018-12-12] MEDS: GUAIFENESIN/DEXTROMETHORPHAN 5 ML PO SCH ×6 (00:22→20:14)
[2018-12-12] MEDS: THYROID PORK 65 MG PO SCH ×2 (06:00→06:20)
--- NOTE | 2018-12-12 07:17 | NUR ---
Resident insisted that he only take 130mg of his thyroid medication this morning (2 pills). Resident says he will take the other two and a half pills around noon. Returned medication to med room bins.
[2018-12-12 08:00] VITALS: BP 98/62
[2018-12-12] MEDS: FLUTICASONE PROP 0.05% 16 GM SCH (08:31)
[2018-12-12] MEDS: MULTIVITAMINS TAB PO SCH (08:31)
[2018-12-12] MEDS: LACTOBACILLUS COMBO NO 10 PO SCH (08:31)
[2018-12-12] MEDS: FERROUS SULFATE 325 MG TAB PO SCH (08:31)
[2018-12-12] MEDS: ASPIRIN 81 MG ENTERIC COATED PO SCH (08:31)
[2018-12-12] MEDS: KELP PO SCH (08:32)
[2018-12-12] MEDS: TURMERIC 500 MG PO SCH (08:32)
[2018-12-12] MEDS: METOPROLOL SUCC XL 25 MG TABCR PO SCH (09:00)
--- NOTE | 2018-12-12 09:55 | NUR ---
Physical Therapy Impression Pt completed transfer to W/C with walking sticks and was taken to main entrance for outdoor car transfer. Pt requested to use B) walking sticks, due to the snow. Pt stood at car door and placed walking sticks into the car, then turned without assistive device and held onto door of car briefly for support until he sat into front passenger seat. Once sitting, pt turned 90 degrees to face forward in car and lifted each leg into car. Pt demos good balance and proper safety awareness with only limited verbal cues. Physical Therapy Goals 1. Independent bed mobility with HOB elevated but no rail. 2. Mod I transfers with either no assistive device or trekking poles. 3. Mod I gait x 150' with trekking poles. 4. Mod I ascend/descend 5 stairs with trekking poles and rail. 5. Independently pick object up off floor. 6. Improve TUG by at least 2 seconds ( <50 seconds) as indicator of decreased fall risk. Patient's Goals
--- NOTE | 2018-12-12 09:57 | NUR ---
Pt out of facility for home eval with OT and daughter.
[2018-12-12 16:45] VITALS: BP 102/67
[2018-12-12] MEDS: RIVAROXABAN 10 MG TAB PO SCH (17:10)
[2018-12-13] MEDS: GUAIFENESIN/DEXTROMETHORPHAN 5 ML PO SCH ×3 (01:00→08:30)
[2018-12-13] MEDS: THYROID PORK 65 MG PO SCH (06:00)
[2018-12-13 08:00] VITALS: BP 107/64
[2018-12-13] MEDS: ASPIRIN 81 MG ENTERIC COATED PO SCH (08:30)
[2018-12-13] MEDS: FLUTICASONE PROP 0.05% 16 GM SCH (08:30)
[2018-12-13] MEDS: LACTOBACILLUS COMBO NO 10 PO SCH (08:30)
[2018-12-13] MEDS: METOPROLOL SUCC XL 25 MG TABCR PO SCH (08:30)
[2018-12-13] MEDS: FERROUS SULFATE 325 MG TAB PO SCH (08:30)
[2018-12-13] MEDS: MULTIVITAMINS TAB PO SCH (08:30)
[2018-12-13] MEDS: TURMERIC 500 MG PO SCH (08:30)
[2018-12-13] MEDS: KELP PO SCH (08:30)
--- NOTE | 2018-12-13 10:50 | NUR ---
OCCUPATIONAL THERAPY Dressing Assistance: Independent Dressing Aid Required: None Bathing Assistance: Set-up Bathing Equipment: Extended tub bench. Pt will benefit from addressing tub transfers in home environment with HH when tub is installed. Home Assessment: Completed Feeding Assistance: Independent Feeding Specialized Equipment: None Toilet Use: Independent Verbalizes Needs: Yes Understands Precautions: Yes Cooperative: Yes Family Teaching: Yes Occupational Therapy Comment:
--- NOTE | 2018-12-13 10:57 | OT ECF NOTE ---
Type of Note: Discharge Note Primary Medical Diagnosis: Weakness, mitral valve clipping surgery on 11/28/18. Occupational Therapy Evaluation Date: 11-22-18 SUBJECTIVE: Prior Hospitalization: [facility] 11/28/18 to 12-02-18. Prior Level of Function: Independent, taking "spit" bathes. Prior Living Status: Single level house Alone Community Services: Independent Home Accessibility: Stairs with rails Equipment Owned: [email or web address] Medical Complications/Past Medical History: Please refer to chart for details. Psychosocial Support: Supportive children, but they do not reside in [place] and pt. refuses to move to where they live. Pain Scale (0-10): No pain stated during discharge OBJECTIVE: Strength: MMT: Right Left Shoulder Flexion WFL WFL Elbow Flexion WFL WFL Wrist Extension WFL WFL Addiction Social Worker WFL WFL (5= normal, 4= good, 3= fair, 2= poor, 1= trace) ROM: Both upper extremities,WFL Functional Transfer: Assistive Device: Recommend use of RW in home environment. Pt prefers trekking pole(s) Transfer Ability: Modified Independent ADL: Upper body dressing: Assistive device: None Upper body dressing ability: Independent Lower body dressing: Assistive device: None Lower body dressing ability: Independent Toileting: Assistive device: Toilet safety frame Toileting ability: Modified Independent Grooming/hygiene: Assistive device: Standing Grooming ability: None Bathing: Assistive device: Extended tub bench and grab bars Bathing ability: SBA Standardized Assessment: Reynold Index of Activities of Daily Living- Pt. scored 13/20 on this index on 12-02-18. 20/20 upon discharge (12/13/18). ASSESSMENT: Pt. is a 77 year old male who was admitted from [facility] on 12/02/18 to [facility] for continued rehab to address weakness. Pt. underwent a mitral valve clipping procedure on 11/28/18 and returns to [place] with the assistance of his daughter (Acacia- who resides in [place]) and son. Pt has met all skilled OT goals. A home evaluation was completed and pt demonstrated good tolerance and modified independence within the home environment. Pt denies further needs/concerns and desires to discharge home at current level of function. Short Term Goals: 1. Pt. to perform toileting activities with Mod I. GOAL MET 2. Pt. to perform showering activities with I. GOAL MET 3. Pt. to perform light meal prep activities with I. GOAL MET 4. Pt. to perform grooming activities, standing sinkfront, with I. GOAL MET 5. Pt. to increase Reynold Index of ADL score by 2 points. GOAL MET PLAN: Pt discharging with PT. Services such as [facility], [facility] offered, pt declined. Daughter plans to assist patient with transition home. Thank you for this referral. If you have any questions, concerns, or comments about this report or plan, please contact me at . Hoda Fang MS, OTR/L Occupational Therapist [facility]
== END 2018-12-13 08:45 | disposition home or self-care (01) | DRG 948 ==
LOC: ECF 14:11
PROVIDERS: ADMIT Internal Medicine; ATTEND Internal Medicine
DX: R53.1 Weakness (principal); I50.32 Chronic diastolic (congestive) heart failure; I48.2 Chronic atrial fibrillation; I34.0 Nonrheumatic mitral (valve) insufficiency; I95.2 Hypotension due to drugs; T50.1X5A Adverse effect of loop [high-ceiling] diuretics, initial encounter; E03.9 Hypothyroidism, unspecified; I27.20 Pulmonary hypertension, unspecified; Z88.0 Allergy status to penicillin
CPT/HCPCS: 36415; 82040; 82247; 82310; 82374; 82435; 82565; 82947; 84075; 84132; 84155; 84295; 84443; 84450; 84460; 84520; 85025; 92523; 97161; 97165

== ENCOUNTER 2019-01-01 11:46 | Inpatient (IN) | payer MEDICARE ==
[~2019-01-01] VITALS: Ht 195.6 cm; Wt 90.3 kg
[~2019-01-01 11:46] MED LIST changes: +ASPI81TA86 PO; +FERR-53 PO; +FLUT16SP19; +LACTOBACILLUS COMBO NO 10 PO; +METO25TA23 PO; +RIVA20TA PO; +Turmeric PO; +[UNRECOGNIZED DRUG - CODE] PO
--- NOTE | 2019-01-01 11:51 | ER Report ---
History and Physical Time Seen By MD: 11:51 HPI/ROS CHIEF COMPLAINT: Cough, shortness of breath, not feeling well HISTORY OF PRESENT ILLNESS: 78-year-old male patient presents to emergency room with complaint of cough, shortness of breath and not feeling well. Patient states this been going on for approximately 2 weeks but is worsened over the last couple days. Patient denies having any fevers, chills. He states that he has had some episodes of emesis. He states that he vomited yesterday he did have what appeared to be which having significant. He states he was cutting a light godoy color. Patient denies any hemoptysis. Patient states that he is just not been feeling well and is concerned there might be something wrong. REVIEW OF SYSTEMS: Respiratory: As noted above Cardiovascular: No chest pain, no palpitations. Gastrointestinal: As noted above Musculoskeletal: No back pain. Allergies: Coded Allergies: Penicillins (Verified Allergy, Unknown, 11/07/18) Home Meds Active Scripts Fluticasone Prop 50 Mcg Ns (FLONASE 50 MCG NS) 16 Gm [place].susp, 1 SPRAY NA QDAY, #1 SPRAY Prov:WHITLEY GU[facility] 12/11/18 Kelp (KELP) 150 Mcg Tablet, 1 EA PO DAILY, #30 TAB Prov:WHITLEY GUERR[facility] 12/11/18 [Lactobacillus Combo No.10] 1 EA CAP No Conflict Check, 2 EA PO DAILY, #60 TAB Prov:WHITLEY GUERR[facility] 12/11/18 [Turmeric] 500 MG CAP No Conflict Check, 500 MG PO DAILY, #30 TAB Prov:WHITLEY GU[facility] 12/11/18 Metoprolol Succinate (METOPROLOL SUCCINATE) 25 Mg Tab.er.24h, 25 MG PO QDAY, #30 TAB Prov:WHITLEY GU[facility] 12/11/18 Ferrous Sulfate (FERROUS SULFATE) 325 Mg Tablet, 325 MG PO DAILY, #30 TAB Prov:WHITLEY [facility] 12/11/18 Aspirin (ASPIRIN EC) 81 Mg Tablet.dr, 81 MG PO QDAY, #30 TAB Prov:WHITLEY GU[facility] 12/11/18 Reported Medications Rivaroxaban 20 Mg (XARELTO 20 MG) 20 Mg Tablet, 20 MG PO QPM 12/02/18 Thyroid,Pork (NATURE-THROID) 65 Mg Tablet, 4.5 TAB PO QDAY 12/02/18 Past Medical/Surgical History Patient has a past medical history of mitral valve regurgitation, NE, A. fib, CHF, hyperlipidemia, pneumonia, reflux, arthritis, back pain, hypothyroidism, alcohol use, lymphoma. Patient has a past surgical history of mitral valve clips placed, stem cells to knees, knee surgery, tonsillectomy, Lasix eye surgery, lymph node removed. Reviewed Nurses Notes: Yes Hx Smoking: Yes Smoking Status: Former Smoker Hx Substance Use Disorder: No Hx Alcohol Use: Yes Constitutional Vital Sign - Last 24 Hours 01/01/19 01/01/19 01/01/19 01/01/19 11:51 11:52 12:00 12:01 Pulse 134 122 Resp 18 26 B/P (MAP) 96/54 96/87 (90) 109/97 (101) Pulse Ox 88 90 O2 Delivery Room Air 01/01/19 01/01/19 01/01/19 01/01/19 12:14 12:16 12:24 13:29 Pulse 134 120 Resp 29 24 B/P (MAP) 88/75 (79) O2 Flow Rate 2.0 01/01/19 01/01/19 01/01/19 01/01/19 13:30 13:59 14:00 14:05 Pulse 120 113 Resp 14 0 B/P (MAP) 117/96 (103) 102/83 (89) 01/01/19 01/01/19 01/01/19 01/01/19 14:25 14:30 14:45 15:00 Pulse 117 114 Resp 24 25 B/P (MAP) 106/96 (99) 102/69 (80) 01/01/19 01/01/19 01/01/19 01/01/19 15:05 15:25 15:30 15:45 Pulse 105 115 112 Resp 16 26 16 B/P (MAP) 95/85 (88) 01/01/19 01/01/19 01/01/19 01/01/19 15:45 16:00 16:00 16:15 Pulse 112 113 115 Resp 16 25 26 B/P (MAP) 93/73 (80) 93/73 (80) 01/01/19 16:30 Pulse 117 Resp 0 B/P (MAP) 87/77 (80) Physical Exam General Appearance: The patient is alert, has no immediate need for airway protection and no current signs of toxicity. Respiratory: Chest is non tender, lungs are diminished to auscultation. Cardiac: regular rate and rhythm Gastrointestinal: Abdomen is soft and non tender, no masses, bowel sounds normal. Musculoskeletal: Neck: Neck is supple and non tender. Extremities have full range of motion and are non tender. Skin: No rashes or lesions. DIFFERENTIAL DIAGNOSIS: After history and physical exam differential diagnosis was considered for shortness of breath including but not limited to pulmonary infectious process, COPD, asthma, pulmonary embolus and congestive heart failure. Medical Decision Making Data Points Result Diagram: 01/01/19 1210 01/01/19 1210 Laboratory Hematology Test 01/01/19 12:10 Red Blood Count 4.90 M/uL (4.00-5.60) Mean Corpuscular Volume 96.1 fL (80.0-96.0) Mean Corpuscular Hemoglobin 30.8 pg (26.0-33.0) Mean Corpuscular Hemoglobin Concent 32.1 g/dL (32.0-36.0) Red Cell Distribution Width 16.8 % (11.5-14.5) Mean Platelet Volume 7.4 fL (7.2-11.1) Neutrophils (%) (Auto) 79.9 % (39.4-72.5) Lymphocytes (%) (Auto) 11.9 % (17.6-49.6) Monocytes (%) (Auto) 6.7 % (4.1-12.4) Eosinophils (%) (Auto) 0.8 % (0.4-6.7) Basophils (%) (Auto) 0.7 % (0.3-1.4) Nucleated RBC Relative Count (auto) 0.2 /100WBC Neutrophils # (Auto) 6.1 K/uL (2.0-7.4) Lymphocytes # (Auto) 0.9 K/uL (1.3-3.6) Monocytes # (Auto) 0.5 K/uL (0.3-1.0) Eosinophils # (Auto) 0.1 K/uL (0.0-0.5) Basophils # (Auto) 0.1 K/uL (0.0-0.1) Nucleated RBC Absolute Count (auto) 0.01 K/uL D-Dimer Quantitative (PE/DVT) 2.38 ug/ml (0-0.50) Sodium Level 134 mmol/L (137-145) Potassium Level 5.2 mmol/L (3.5-5.0) Chloride Level 99 mmol/L (98-107) Carbon Dioxide Level 19 mmol/L (22-30) Blood Urea Nitrogen 28 mg/dl (9-21) Creatinine 1.50 mg/dl (0.66-1.25) Glomerular Filtration Rate Calc 45.1 Random Glucose 117 mg/dl (75-110) Calcium Level 9.5 mg/dl (8.4-10.2) Total Bilirubin 3.3 mg/dl (0.2-1.3) Aspartate Amino Transf (AST/SGOT) 107 U/L (0-35) Alanine Aminotransferase (ALT/SGPT) 121 U/L (0-56) Alkaline Phosphatase 97 U/L (0-126) Troponin I 0.017 ng/ml B-Type Natriuretic Peptide 1520 pg/ml (0-100) Total Protein 7.4 g/dl (6.3-8.2) Albumin 4.2 g/dl (3.5-5.0) Chemistry Test 01/01/19 12:10 White Blood Count 7.6 k/uL (4.5-11.0) Red Blood Count 4.90 M/uL (4.00-5.60) Hemoglobin 15.1 g/dL (14.0-18.0) Hematocrit 47.2 % (42.0-52.0) Mean Corpuscular Volume 96.1 fL (80.0-96.0) Mean Corpuscular Hemoglobin 30.8 pg (26.0-33.0) Mean Corpuscular Hemoglobin Concent 32.1 g/dL (32.0-36.0) Red Cell Distribution Width 16.8 % (11.5-14.5) Platelet Count 253 K/uL (150-450) Mean Platelet Volume 7.4 fL (7.2-11.1) Neutrophils (%) (Auto) 79.9 % (39.4-72.5) Lymphocytes (%) (Auto) 11.9 % (17.6-49.6) Monocytes (%) (Auto) 6.7 % (4.1-12.4) Eosinophils (%) (Auto) 0.8 % (0.4-6.7) Basophils (%) (Auto) 0.7 % (0.3-1.4) Nucleated RBC Relative Count (auto) 0.2 /100WBC Neutrophils # (Auto) 6.1 K/uL (2.0-7.4) Lymphocytes # (Auto) 0.9 K/uL (1.3-3.6) Monocytes # (Auto) 0.5 K/uL (0.3-1.0) Eosinophils # (Auto) 0.1 K/uL (0.0-0.5) Basophils # (Auto) 0.1 K/uL (0.0-0.1) Nucleated RBC Absolute Count (auto) 0.01 K/uL D-Dimer Quantitative (PE/DVT) 2.38 ug/ml (0-0.50) Glomerular Filtration Rate Calc 45.1 Calcium Level 9.5 mg/dl (8.4-10.2) Total Bilirubin 3.3 mg/dl (0.2-1.3) Aspartate Amino Transf (AST/SGOT) 107 U/L (0-35) Alanine Aminotransferase (ALT/SGPT) 121 U/L (0-56) Alkaline Phosphatase 97 U/L (0-126) Troponin I 0.017 ng/ml B-Type Natriuretic Peptide 1520 pg/ml (0-100) Total Protein 7.4 g/dl (6.3-8.2) Albumin 4.2 g/dl (3.5-5.0) Coagulation Test 01/01/19 12:10 D-Dimer Quantitative (PE/DVT) 2.38 ug/ml EKG/Imaging EKG Interpretation 12 lead EKG: Rhythm: A. fib with ventricular rate of 136 bpm [place]: normal QRS: Right bundle branch block ST segments: normal Imaging CT angiogram chest with contrast Indication: Cough, shortness breath and elevated d-dimer. Comparison: None available. Technique: Axial CT images are obtained through the chest after administration of 120 mL Isovue 370 IV contrast. Reformatted coronal and sagittal images were reviewed as well as coronal MIP images. One of the following dose optimization techniques was utilized in the perfo rmance of this exam: automated exposure control; adjustment of the mA and/or kV according to the patient's size; or use of an iterative reconstruction technique. Specific details can be referenced in the facility's radiology CT exam operational policy. FINDINGS: Positive pulmonary emboli in the right lower lobe pulmonary arteries extending from the right lower lobe to right middle lobe pulmonary arteries and extending into the segmental and subsegmental branches. There may be a tiny subsegmental emboli seen in the right upper lobe pulmonary arteries. The left pulmonary arteries show no discrete emboli. No discrete large central pulmonary emboli. There is some artifact seen in the main pulmonary arteries. The heart is diffusely enlarged. The left ventricle is not opacified to assess for size. Clips are seen in the area of the left ventricle. No significant pericardial effusion. Mild coronary artery calcifications. The aorta shows no indication of aneurysm. The ascending aorta is upper limits normal for size at 3.8 mm. The aorta is not well opacified to assess for dissection. The mediastinum and hilar regions shows a few small lymph nodes without any enlarged lymph node. There is a moderate left pleural effusion with associated atelectasis. Minimal left pleural effusion with atelectasis. No consolidations or pneumothorax. The anterior left upper lobe does show a pleural-based 5 x 4 mm nodule seen in image #40 series 5. No other discrete nodule or focal interstitial opacity. The airways are clear. Bony structures show no acute fractures or aggressive bony lesions. Degenerative change seen spine and shoulders. The chest wall shows no enlarged axillary lymph nodes or masses. There is reflux of contrast from the right atrium into the IVC and hepatic veins. The upper abdomen is otherwise unremarkable. IMPRESSION: 1. Positive pulmonary emboli. There is emboli seen in the branch of the right lower and middle pulmonary arteries extending into the segmental and subsegmental branches of both the right middle lobe and right lower lobe pulmonary arteries. No other discrete emboli is identified. There is some artifact seen in the main pulmonary arteries without discrete well-defined central pulmonary artery aneurysm. 2. Moderate right pleural effusion with associated atelectasis. Minimal left pleural effusion with atelectasis. 3. Cardiomegaly. There is reflux contrast from the right atrium into the IVC and hepatic veins. This nonspecific but could be due to cardiac decompensation. 4. 5 mm nodule in the left upper lobe. This too small characterize and could be postinflammatory. Suggest follow-up per Fleischner guidelines described below. I called report to THO CASTLE at 01/01/2019 2:08 PM. FLEISCHNER SOCIETY FOLLOW-UP GUIDELINES FOR NEWLY DETECTED INCIDENTAL NODULES IN PERSONS 35 YEARS OF AGE OR OLDER. *These recommendations do NOT apply to lung cancer screening, patients with immunosuppression or patients with a known primary malignancy. MULTIPLE SOLID NODULES If nodule size is < 6 mm: * Low risk patient ? No routine follow-up. * High risk patient ? Optional CT at 12 months. If nodule size is 6-8 mm: * Low risk patient ? CT at 3-6 months, then consider CT at 18-24 months if no change. * High risk patient ? CT at 3-6 months, then CT at 18-24 months if no change. If nodule size is > 8 mm: * Low risk patient ? CT at 3-6 months, then consider CT at 18-24 months if no change.* High risk patient ? CT at 3-6 months, then consider CT at 18-24 months if no change. LOW RISK PATIENT: Minimal or absent history of tobacco use and of other known risk factors. HIGH RISK PATIENT: Tobacco use, family history of lung cancer, upper pulmonary lobe location of nodule, presence of emphysema, pulmonary fibrosis, older age. Melida H, Nabila DP, Julissa JM, et al. Guidelines for Management of Incidental Pulmonary Nodules Detected on CT Images: From the Fleischner Society 2017. Radiology. [facility] Report Dictated By: Kendall Harding at 01/01/2019 1:53 PM Report E-Signed By: Kendall Harding at 01/01/2019 2:09 PM Study: Frontal and lateral views of the chest Indication: Respiratory distress Comparison study: November 07, 2018 Findings: PA and lateral views of the chest demonstrate the presence of a mild right pleural effusion. This has worsened in the interval from the previous study. There is a probable underlying right base infiltrate. There is no evidence of left pleural effusion. There is no evidence of left-sided infiltrate. There is no evidence of pneumothorax. The mediastinal, cardiac, and diaphragmatic contours are unremarkable. The visualized bony structures are unremarkable. IMPRESSION: Worsening right pleural effusion. Probable right base infiltrate. Report Dictated By: Tree García at 01/01/2019 12:45 PM Report E-Signed By: Tree García at 01/01/2019 12:50 PM ED Course/Re-evaluation ED Course Patient was admitted to an exam room, history and physical were obtained. Differential diagnoses were considered. On examination patient did have irregular heartbeat, lungs were diminished. Abdomen was soft and nontender. An IV was started, CBC, CMP, EKG, chest x-ray, troponin, d-dimer were done. EKG showed patient was initial fibrillation. He does have a history of atrial fibrillation is currently on Xarelto for that. Patient has a little bit of a left shift, chest x-ray shows worsening right pleural effusion with possible infiltrate in the right lung. Troponin was negative at 0.017, d-dimer was elevated at 2.5. Because the elevated d-dimer and felt that it was prudent to go ahead and do a CT pulmonary angiogram. That came back positive with a PE in the segmental and subsegmental in the right middle and lower lobe. I discussed the case with Dr. Stein, cardiology at [facility], the patient's request. I discussed with him my thought at this time is to go ahead and admit and put him on a blood thinning medication, heparin, and change him to Coumadin. He felt that would be something reasonable. I discussed the case with Dr. Bravo, hospitalist, who wondered if the patient should have an IVC filter placed. He requested that I speak with hematology. I then spoke with Dr. Christianson, hematology at [facility], we discussed the case and she felt that the patient would not need an IVC filter, however felt that changing him to a different anticoagulant would be beneficial. She did feel that Coumadin may be more helpful for the patient as missing doses has less of an impact on the overall anticoagulation. I discussed this with Dr. Bravo who agreed to accept the patient for admission. I discussed this with the patient who verbalized understanding and agreement with plan. Decision to Disposition Date: Jan 01, 2019 Decision to Disposition Time: 16:13 Depart Departure Latest Vital Signs Vital Signs Date Time Temp Pulse Resp B/P (MAP) Pulse Ox O2 Delivery O2 Flow Rate FiO2 01/01/19 16:30 117 0 87/77 (80) 01/01/19 12:14 2.0 01/01/19 12:01 90 01/01/19 11:51 Room Air Impression: Primary Impression: Pulmonary emboli Condition: Condition Unchanged Disposition: Admitted from ER Referrals: [facility]IT PATTERSONP (PCP) Problem Qualifiers Primary Impression: Pulmonary emboli Pulmonary embolism type: other Chronicity: acute Acute cor pulmonale presence: without acute cor pulmonale Qualified Codes: I26.99 - Other pulmonary embolism without acute cor pulmonale THO CASTLE Jan 01, 2019 11:51
[2019-01-01] MEDS ORDERED: NS(*) 0.9% 500 ML BAG 500 ML IV ONE (11:58)
--- NOTE | 2019-01-01 12:06 | EKG ---
[place] [facility] [place] BENEDICTO CRISTOBAL : [id number] MR: [id number] V: [id number] EXAM DATE: ORDERING PHYSICIAN: THO CASTLE TECHNOLOGIST: Test Reason : afib Blood Pressure : / mmHG Vent. Rate : 136 BPM Atrial Rate : 170 BPM P-R Int : 000 ms QRS Dur : 150 ms QT Int : 378 ms P-R-T Axes : 000 120 -29 degrees QTc Int : 568 ms Atrial fibrillation Right bundle branch block Isolated ST depression in V3 When compared with ECG of 07-NOV-2018 16:21, No significant change was found Confirmed by PATRICIO PRIDE ([id number]) on 01/01/2019 4:30:12 PM Referred By: Confirmed By:PATRICIO PRIDE
[2019-01-01] MEDS ORDERED: DILTIAZEM 5 MG/ML 5ML IVPUSH IVP ONE (12:10)
[2019-01-01 12:21] LABS: PLATELET COUNT, AUTOMATED 253 K/uL (150-450)
--- NOTE | 2019-01-01 12:55 | RADIOLOGY IMAGING REPORT ---
FACILITY: [facility] [place] PATIENT NAME: Samuel Izaguirre : 1940 MR: [id number] V: [id number] EXAM DATE: ORDERING PHYSICIAN: THO CASTLE TECHNOLOGIST: Location: [facility] [place] Patient: Samuel Izaguirre : 1940 Visit/Account:[id number] Date of Sevice: 01/01/2019 Study: Frontal and lateral views of the chest Indication: Respiratory distress Comparison study: November 07, 2018 Findings: PA and lateral views of the chest demonstrate the presence of a mild right pleural effusion . This has worsened in the interval from the previous study. There is a probable underlying right b ase infiltrate. There is no evidence of left pleural effusion. There is no evidence of left-sided i nfiltrate. There is no evidence of pneumothorax. The mediastinal, cardiac, and diaphragmatic contours are unremarkable. The visualized bony structures are unremarkable. IMPRESSION: Worsening right pleural effusion. Probable right base infiltrate. Report Dictated By: Tree García at 01/01/2019 12:45 PM Report E-Signed By: Tree García at 01/01/2019 12:50 PM WSN:[id number]
[2019-01-01] MEDS ORDERED: IOPAMIDOL 61% 100 ML INFUS BTL 100 ML ONE (12:58)
[2019-01-01] MEDS ORDERED: NS(*) 0.9% 50 ML BAG 50 ML ONE (12:58)
[2019-01-01] MEDS ORDERED: IOPAMIDOL 61% 50 ML INFUS BTL 50 ML ONE (12:58)
--- NOTE | 2019-01-01 14:13 | RADIOLOGY IMAGING REPORT ---
FACILITY: [facility] PATIENT NAME: Samuel Izaguirre : 1940 MR: [id number] V: [id number] EXAM DATE: ORDERING PHYSICIAN: THO CASTLE TECHNOLOGIST: Location: [facility] Patient: Samuel Izaguirre : 1940 Visit/Account:[id number] Date of Sevice: 01/01/2019 CT angiogram chest with contrast Indication: Cough, shortness breath and elevated d-dimer. Comparison: None available. Technique: Axial CT images are obtained through the chest after administration of 120 mL Isovue 370 I V contrast. Reformatted coronal and sagittal images were reviewed as well as coronal MIP images. One of the following dose optimization techniques was utilized in the performance of this exam: auto mated exposure control; adjustment of the mA and/or kV according to the patient's size; or use of an iterative reconstruction technique. Specific details can be referenced in the facility's radiology C T exam operational policy. FINDINGS: Positive pulmonary emboli in the right lower lobe pulmonary arteries extending from the right lower l obe to right middle lobe pulmonary arteries and extending into the segmental and subsegmental branche s. There may be a tiny subsegmental emboli seen in the right upper lobe pulmonary arteries. The left pulmonary arteries show no discrete emboli. No discrete large central pulmonary emboli. There is some artifact seen in the main pulmonary arteries. The heart is diffusely enlarged. The left ventricle is not opacified to assess for size. Clips are se en in the area of the left ventricle. No significant pericardial effusion. Mild coronary artery calci fications. The aorta shows no indication of aneurysm. The ascending aorta is upper limits normal for size at 3.8 mm. The aorta is not well opacified to assess for dissection. The mediastinum and hilar r egions shows a few small lymph nodes without any enlarged lymph node. There is a moderate left pleural effusion with associated atelectasis. Minimal left pleural effusion with atelectasis. No consolidations or pneumothorax. The anterior left upper lobe does show a pleural -based 5 x 4 mm nodule seen in image #40 series 5. No other discrete nodule or focal interstitial [place]. The airways are clear. Bony structures show no acute fractures or aggressive bony lesions. Degenerative change seen spine an d shoulders. The chest wall shows no enlarged axillary lymph nodes or masses. There is reflux of contrast from the right atrium into the IVC and hepatic veins. The upper abdomen i s otherwise unremarkable. IMPRESSION: 1. Positive pulmonary emboli. There is emboli seen in the branch of the right lower and middle pulmon angie arteries extending into the segmental and subsegmental branches of both the right middle lobe and right lower lobe pulmonary arteries. No other discrete emboli is identified. There is some artifact seen in the main pulmonary arteries without discrete well-defined central pulmonary artery aneurysm. 2. Moderate right pleural effusion with associated atelectasis. Minimal left pleural effusion with at electasis. 3. Cardiomegaly. There is reflux contrast from the right atrium into the IVC and hepatic veins. This nonspecific but could be due to cardiac decompensation. 4. 5 mm nodule in the left upper lobe. This too small characterize and could be postinflammatory. Sug gest follow-up per Fleischner guidelines described below. I called report to THO CASTLE at 01/01/2019 2:08 PM. FLEISCHNER SOCIETY FOLLOW-UP GUIDELINES FOR NEWLY DETECTED INCIDENTAL NODULES IN PERSONS 35 YEARS OF AGE OR OLDER. *These recommendations do NOT apply to lung cancer screening, patients with immunosuppression or lydia ents with a known primary malignancy. MULTIPLE SOLID NODULES If nodule size is < 6 mm: * Low risk patient ? No routine follow-up. * High risk patient ? Optional CT at 12 months. If nodule size is 6-8 mm: * Low risk patient ? CT at 3-6 months, then consider CT at 18-24 months if no change. * High risk patient ? CT at 3-6 months, then CT at 18-24 months if no change. If nodule size is > 8 mm: * Low risk patient ? CT at 3-6 months, then consider CT at 18-24 months if no change.* High risk pa tient ? CT at 3-6 months, then consider CT at 18-24 months if no change. LOW RISK PATIENT: Minimal or absent history of tobacco use and of other known risk factors. HIGH RISK PATIENT: Tobacco use, family history of lung cancer, upper pulmonary lobe location of nodul e, presence of emphysema, pulmonary fibrosis, older age. Melida H, Nabila DP, Julissa JM, et al. Guidelines for Management of Incidental Pulmonary Nodules Dete cted on CT Images: From the Fleischner Society 2017. Radiology. [facility] Report Dictated By: Kendall Harding at 01/01/2019 1:53 PM Report E-Signed By: Kendall Harding at 01/01/2019 2:09 PM WSN:[id number]
[2019-01-01 16:58] VITALS: BP 93/78
[2019-01-01] MEDS ORDERED: NS(*) 0.9% 1000 ML BAG 1,000 ML IV PRN (17:35)
[2019-01-01 19:36] VITALS: BP 90/79
[2019-01-01] MEDS ORDERED: FLUTICASONE PROP 0.05% 16 GM PRN (20:05)
--- NOTE | 2019-01-01 20:47 | History & Physical ---
History of Present Illness Chief Complaint Short of breath. History of Present Illness 78 yr old male with shortness of breath for the past 2 weeks or so. Also more cough than usual. Denies chest pain. No leg pain but legs have been more swoll en than usual. Recent history reveals a severe mitral valve prolapse/atrial fib/CHF issue dating back about 3-4 months. Had mitral valve clipping done in [place] in November and initially felt better but in last few weeks has been weaker, poor food and fluid intake, unable to walk any distance at all and has had worsening leg swelling. There is some question as to whether he is taking his meds as directed. Presented to ER today and found to have multiple pulmonary emboli and referred for admission. Supposed to be on xarelto at home. History Problems: (1) Chronic atrial fibrillation Status: Chronic (2) Hypothyroidism Status: Chronic (3) Moderate to severe pulmonary hypertension Status: Chronic (4) Mitral regurgitation Status: Chronic Comment: Due to severely prolapsing mitral valve. Had mitral clipping in Nov 2018. (5) Elevated LFTs Status: Acute (6) IRON DEFICIENCY ANEMIA, UNSPECIFIED Status: Chronic Home Meds Active Scripts Fluticasone Prop 50 Mcg Ns (FLONASE 50 MCG NS) 16 Gm [place].susp, 1 SPRAY NA QDAY, #1 SPRAY Prov:WHITLEY GUERRERO Lauren FACILITIES PAINTER 12/11/18 Kelp (KELP) 150 Mcg Tablet, 1 EA PO DAILY, #30 TAB Prov:GUERREROWHITLEY SOLARES FACILITIES PAINTER 12/11/18 [Lactobacillus Combo No.10] 1 EA CAP No Conflict Check, 2 EA PO DAILY, #60 TAB Prov:YOLANDANAVDEEPWHITLEY Lauren FACILITIES PAINTER 12/11/18 [Turmeric] 500 MG CAP No Conflict Check, 500 MG PO DAILY, #30 TAB Prov:WHITLEY GUERRERO Lauren FACILITIES PAINTER 12/11/18 Metoprolol Succinate (METOPROLOL SUCCINATE) 25 Mg Tab.er.24h, 25 MG PO QDAY, #30 TAB Prov:WHITLEY GUERREROP 12/11/18 Ferrous Sulfate (FERROUS SULFATE) 325 Mg Tablet, 325 MG PO DAILY, #30 TAB Prov:WHITLEY GUERRERO FACILITIES PAINTER 12/11/18 Aspirin (ASPIRIN EC) 81 Mg Tablet.dr, 81 MG PO QDAY, #30 TAB Prov:WHITLEY GUERRERO 12/11/18 Reported Medications Rivaroxaban 20 Mg (XARELTO 20 MG) 20 Mg Tablet, 20 MG PO QPM 12/02/18 Thyroid,Pork (NATURE-THROID) 65 Mg Tablet, 4.5 TAB PO QDAY 12/02/18 Allergies: Coded Allergies: Penicillins (Verified Allergy, Unknown, 11/07/18) Patient History: FH: hypothyroidism BROTHER OR SISTER (DMx2) BROTHER OR SISTER BROTHER OR SISTER Hx Smoking: Yes Smoking Status: Former Smoker When Quit Tobacco?: 1966 Caffeine Intake: Coffee Hx Alcohol Use: Yes Hx Substance Use Disorder: No Social Drug Use: Never Review of Systems Constitutional: Weight Loss; No Fever, No Chills Neurological: Weakness, Dizziness Eyes: No Vision Change, No Loss of Vision, No Photophobia ENT: Hearing Loss Cardiovascular: Orthostatic Hypotension, Other; No Chest Pain, No Palpitations Respiratory: Shortness of Breath, Cough Gastrointestinal: Nausea, Constipation, Early Satiety Genitourinary: No Dysuria, No Hematuria, No Urinary Incontinence Musculoskeletal: Impaired Mobility Psychiatric: Anxiety Exam Vital Signs Vital Signs Date Time Temp Pulse Resp B/P (MAP) Pulse Ox O2 Delivery O2 Flow Rate FiO2 01/01/19 19:36 97.5 114 20 90/79 (83) 96 Nasal Cannula 2.0 General Appearance: Alert, Awake, No Acute Distress, Afebrile Neuro: No Gross deficits Neck: Other (JVP elevated to 4-5 cm above clavicle at 45 degrees. ) Cardiovascular: Other (S1S2 are soft. Grade 3/6 holosystolic murmur across precordium) Respiratory: Other (Harsh BS throughout. Ronchi and rales both lower lobes.) Chest: No Masses, No Tenderness GI: Abd Soft and Non-Tender : No CVA Tenderness Extremities: Other (Chronic stasis changes, 2+ edema to knees. ) Integumentary: Generalized Fragile Skin, Pallor Psych: Alert & Oriented X3, Appropriate Mood & Affect Medical Decision Making Data Points Result Diagram: 01/01/19 1210 01/01/19 1210 Item Value Date Time Random Glucose 117 mg/dl H 01/01/19 1210 Calcium Level 9.5 mg/dl 01/01/19 1210 Total Bilirubin 3.3 mg/dl H 01/01/19 1210 Aspartate Amino Transf (AST/SGOT) 107 U/L H 01/01/19 1210 Alanine Aminotransferase (ALT/SGPT) 121 U/L H 01/01/19 1210 Troponin I 0.017 ng/ml 01/01/19 1210 Alkaline Phosphatase 97 U/L 01/01/19 1210 B-Type Natriuretic Peptide 1520 pg/ml H 01/01/19 1210 Total Protein 7.4 g/dl 01/01/19 1210 Albumin 4.2 g/dl 01/01/19 1210 D-Dimer Quantitative (PE/DVT) 2.38 ug/ml H 01/01/19 1210 EKG / Imaging EKG Interpretation Reviewed Imaging Reviewed CT of chest and CXR Pre-Admit Course ED Medications Reviewed Medical Record Review: Yes Assessment and Plan Problems: (1) Pulmonary emboli Status: Acute Assessment & Plan: Mostly right middle and lower lobes. Not at all clear as to why he developed PE's in face of xarelto unless he failed to take it which is entirely possible. No evidence for DVT in lower extremities. Given his degree of CHF and possibly inadequate anticoagulation, he could have clotted in situ. Hematology and cardiology consulted from [place] and recommended no venous filters but to treat with heparin or lovenox followed by warfarin. Started on lovenox 1mg/kg subcut this afternoon and given his creatinine level will use q 24 hour dosing. Start warfarin tomorrow and overlap with lovenox until INR is therapeutic. (2) CHF (congestive heart failure) Status: Chronic Assessment & Plan: BNP is very high at approx. 1500. Certainly atrial fib is contributing as is renal failure to the BNP, but he has significantly more edema, R pleural effusion and elevated neck veins. Previous ECHO showed mostly 2/4 diastolic failure. Will use small dose of oral lasix since he refuses IV lasix after his experience in [place] with aggressive diuresis and a 35 lb weight loss i n a few days. Follow BNP. Control atrial fib with small dose of diltiazem IV drip. Scheduled to see his weight count operator on Sunday here in [place]. (3) Chronic atrial fibrillation Status: Chronic Assessment & Plan: Poorly controlled on B blockers. Will use small dose of diltiazem 5 mg drip and watch BP carefully. (4) Elevated LFTs Status: Acute Assessment & Plan: Possibly due to liver congestion with CHF. Will follow labs. He does admit to heavy alcohol intake in past but none for 36 years. (5) Mitral regurgitation Status: Chronic Assessment & Plan: Due to severely prolapsing mitral valve. Had mitral clipping in Nov 2018. Status is unclear at this time. He needs EMIGDIO as soon as possible. (6) IRON DEFICIENCY ANEMIA, UNSPECIFIED Status: Chronic Assessment & Plan: Continue iron daily. (7) Hypothyroidism Status: Chronic Assessment & Plan: Continue thyroid extract 60 mg daily. Recheck TSH since not repeated since Nov 2018 when it was elevated at 20+. (8) Acute renal insufficiency Status: Acute Assessment & Plan: Creat at 1.5 which is higher than usual for him (0.9). Will follow as we treat other issues. Time Spent on Plan of Care: > 30 min Copies to: WHIT PATTERSON ; Venous Thromboembolism VTE Risk Physician Assess for VTE Risk: Yes Patient's VTE Risk: High VTE Diagnostic Test 2 Days Prior to Admit: No Antithrombotics Is Pt On Any Antithrombotics?: Yes Exam Sepsis Risk: Severe Sepsis Risk Problem Qualifiers (1) Pulmonary emboli: Pulmonary embolism type: other Chronicity: acute Acute cor pulmonale presence: without acute cor pulmonale Qualified Codes: I26.99 - Other pulmonary embolism without acute cor pulmonale PURA ACEVEDO MD FACP Jan 01, 2019 20:47
[2019-01-01] MEDS ORDERED: ENOXAPARIN 100 MG/ML SYR SC SCH (21:00)
[2019-01-01] MEDS ORDERED: DILTIAZEM HCL 125 MG/25 ML SDV 125 MG in NS(*) 0.9% 100 ML BAG 100 ML IV ONE (21:00)
[2019-01-01] MEDS ORDERED: DILTIAZEM 5 MG/ML 5ML IVPUSH ONE (21:11)
[2019-01-01] MEDS ORDERED: NS(*) 0.9% 100 ML BAG 100 ML ONE (21:11)
[2019-01-01 22:00] VITALS: BP 105/77
[2019-01-01 23:00] VITALS: BP 100/78
[2019-01-02] VITALS (9 sets, daily range): BP systolic 92–131; BP diastolic 65–85; Ht 195.6 cm; Wt 90.3 kg
[2019-01-02 06:08] LABS: INR 2.03
[2019-01-02] MEDS: THYROID 60 MG TAB PO SCH (06:17)
[2019-01-02 06:24] LABS: PLATELET COUNT, AUTOMATED 181 K/uL (150-450)
[2019-01-02] MEDS ORDERED: FUROSEMIDE 20 MG TAB PO SCH (09:00)
[2019-01-02] MEDS ORDERED: FERROUS SULFATE 325 MG TAB PO ONE (09:00)
[2019-01-02] MEDS ORDERED: ENOXAPARIN 100 MG/ML SYR SC SCH (09:00)
[2019-01-02] MEDS: FLUTICASONE PROP 0.05% 16 GM SCH (11:36)
--- NOTE | 2019-01-02 12:51 | Medical Nutrition Therapy ---
HIRAL EDEN 01/02/19 1225: Nutrition Anthropometrics Height (Inches): 77.00 Height (Calculated Centimeters: 195.896377 Weight (Pounds): 199 Weight (Calculated Kilograms): 90.492 BMI: 23.7 Ja Nutrition Score: Probably Inadequate Ja Nutrition Risk Score: 18 Dietary Referral Nutrition Risk Factors: Unplanned Loss >10lbs Nutrition Risk Comment: Lost 32 pounds in 9 days when put on Lasix Physical Findings Physical Appearance: Skin Appearance Skin Appearance: Edema Edema Location Modifier: Both Edema Location: Lower Extremity Type of Edema: Degree of Edema: 2+ Gastrointestinal Symptoms GI Symtoms: Appetite Changes Tube Present: Bowel Sounds: Recent Bowel Pattern: Stool Characteristics: Nutritional Diagnosis Nutritional Risk Acuity 2: Unintended Wt Loss >5%/mo, CHF w/Complication Nutritional Risk Acuity 3: Weight Loss Nutritional Risk Acuity 4: Good Appetite Past Medical History: Hx atrial fibrillation, hypothyroidism, anemia, hypertension, mitral regurg. Nutritional Acuity: 2-Moderate Nutrition Diagnosis: Increased Nutrient Needs Nutrition Etiology: Physiological Causes Nutrition Problem/Etiology/Sym: Increased Nutrient needs related to physiological causes as evidenced by heart failure, atrial fibrillation, and self reported salt restrictio of 1000mg of Na/day. Energy Requirement: 2287 (MSJ, 1.1 TEF, 1.2 AF) Protein Requirement: 72 (0.8g/kg of BW) Fluid Requirement: 2287 (1kcal/1mL) Diet Type: Cardiac Nutrition Intervention: Cont diet as ordered, Encourage intake Drug: Diuretics, Warfarin Diet Comment To RSA: Pt is on warfarin and enoxaparin for anticoagulants and furosemide for diuretic Nutritional Education Nutrition Education Topic: Congested Heart Failure Learning Readiness: Little Interest Teaching Methods: Discussion, Handout Response to Teaching: Verbalize understanding Teaching Recipient: Patient Nutrition Counseling: Pt stated that he knew about the heart failure diet. Pt stated that he is on a cardiac diet with <1000mg of Na a day. Nutrition Monitoring & Eval Nutrition Goals: Eat 50-100% Meal, Drink > 2 liters/day Nutrition Follow-Up: Good Intake RD Patient Assessment Time: [address] Assessment Type: RD Assessment Patient Nutrition Acuity: 2-Moderate Follow Up Date: Jan 05, 2019 Nutritional Comment: Pt dx with CHF, Atrial fibrilation, pulmonary emboli, mitral regurgitation, anemia, hypothyroid. Pt has hx of Atrial fibrilation, anemia, mitral regurgitation, anemia, hypothyroidism and hypertension. -JJ MDS Due Date: Jan 30, 2019 RAFAELA RENTERIA 01/02/19 1524: Nutrition Monitoring & Eval Nutritional Comment: Resident Hall Director note assess and approved by RD. -HIRAL FARIA Jan 02, 2019 12:25 RAFAELA RENTERIA Jan 02, 2019 15:24
[2019-01-02] MEDS ORDERED: WARFARIN SOD 2.5 MG TAB PO SCH (13:00)
[2019-01-02] MEDS ORDERED: METO25TA93 PO (15:54)
--- NOTE | 2019-01-02 16:27 | Hospitalist Progress Note ---
Subjective Progress Notes Subjective 78M admitted for respiratory failure. [place] overnight, suspect he was not adherent to his anticoagulation after mitral clip. Patient Complains of: Respiratory: No: Cough, Congestion Physical Exam Vital Signs Date Time Temp Pulse Resp B/P (MAP) Pulse Ox O2 Delivery O2 Flow Rate FiO2 01/02/19 15:04 97.4 113 24 104/85 (91) 94 Nasal Cannula 3.0 Intake and Output 01/02/19 07:00 Intake Total 510 ml Balance 510 ml Intake Oral 360 ml IV Total 150 ml # Voids 2 General Appearance: Alert, Awake, No Acute Distress, Afebrile Neuro: No Gross deficits ENT: Normal Cardiovascular: Other (irregularly irregular) Respiratory: No Respiratory Distress GI: Soft and Non-Tender Musculoskeletal: No Weakness/Pain Extremities: Soft and Non Tender, Warm, Pulses, Perfused, Edema Result Diagram: 01/02/19 0500 01/02/19 0500 Assessment and Plan Problems: (1) Pulmonary emboli Status: Acute Assessment & Plan: Mostly right middle and lower lobes. Not at all clear as to why he developed PE's in face of xarelto unless he failed to take it which is e ntirely possible. No evidence for DVT in lower extremities. Given his degree of CHF and possibly inadequate anticoagulation, he could have clotted in situ. Hematology and cardiology consulted from [place] and recommended no venous filters but to treat with heparin or lovenox followed by Xarelto. Started on lovenox 1mg/kg subcut and changed to Xarelto. (2) CHF (congestive heart failure) Status: Chronic Assessment & Plan: BNP is very high at approx. 1500. Certainly atrial fib is contributing as is renal failure to the BNP, but he has significantly more edema, R pleural effusion and elevated neck veins. Previous ECHO showed mostly 2/4 diastolic failure. Will use small dose of oral lasix since he refuses IV lasix after his experience in [place] with aggressive diuresis and a 35 lb weight loss in a few days. Follow BNP. Scheduled to see his medical staff services coordinator on Sunday here in [place]. (3) Chronic atrial fibrillation Status: Chronic Assessment & Plan: Suspect he was non adherent to BB, will restart small dose metoprolol succinate to treat this and HFrEF. (4) Elevated LFTs Status: Acute Assessment & Plan: Possibly due to liver congestion with CHF. Will follow labs. He does admit to heavy alcohol intake in past but none for 36 years. (5) Mitral regurgitation Status: Chronic Assessment & Plan: Due to severely prolapsing mitral valve, now post mitral clipping in Nov 2018. Status is unclear at this time. Cardiology recommend EMIGDIO if he begins having symptoms which could be related to mitral clip thrombosis, otherwise no intervention needed. (6) IRON DEFICIENCY ANEMIA, UNSPECIFIED Status: Chronic Assessment & Plan: Continue iron daily. (7) Hypothyroidism Status: Chronic Assessment & Plan: Continue thyroid extract 60 mg daily. Recheck TSH since not repeated since Nov 2018 when it was elevated at 20+. (8) Acute renal insufficiency Status: Acute Assessment & Plan: Creat at 1.5 on admission, improved with a little hydration to near baseline of 1.0. Exam Sepsis Risk: No Definite Risk Problem Qualifiers (1) Pulmonary emboli: Pulmonary embolism type: other Chronicity: acute Acute cor pulmonale presence: without acute cor pulmonale Qualified Codes: I26.99 - Other pulmonary embolism without acute cor pulmonale JAZZY CORREA DO Jan 02, 2019 16:27
[2019-01-02] MEDS: RIVAROXABAN 10 MG TAB PO SCH (21:28)
[2019-01-02] MEDS: METOPROLOL SUCC XL 25 MG TABCR PO SCH (21:28)
[2019-01-03 03:48] VITALS: BP 111/70
[2019-01-03] MEDS: THYROID 60 MG TAB PO SCH (05:54)
[2019-01-03 06:01] LABS: INR 3.64
[2019-01-03 07:54] VITALS: BP 98/82
[2019-01-03] MEDS: METOPROLOL SUCC XL 25 MG TABCR PO SCH ×2 (08:34→20:51)
[2019-01-03] MEDS: FLUTICASONE PROP 0.05% 16 GM SCH (08:34)
[2019-01-03] MEDS: FUROSEMIDE 20 MG TAB PO SCH (08:34)
[2019-01-03] MEDS: RIVAROXABAN 10 MG TAB PO SCH ×2 (08:35→20:51)
[2019-01-03] MEDS ORDERED: FUROSEMIDE 20 MG TAB PO SCH (09:00)
[2019-01-03] MEDS ORDERED: PROMETHAZINE 25 MG/ML 1 ML AMP IVP PRN (10:40)
[2019-01-03 11:29] VITALS: BP 102/72
--- NOTE | 2019-01-03 13:35 | Hospitalist Progress Note ---
Subjective Progress Notes Subjective He reports some minimal improvements. No bleeding on the anticoagulants. Physical Exam Vital Signs Date Time Temp Pulse Resp B/P (MAP) Pulse Ox O2 Delivery O2 Flow Rate FiO2 01/03/19 11:29 97.6 110 30 102/72 (82) 93 Nasal Cannula 3.0 Intake and Output 01/03/19 07:00 Intake Total 3792 ml Balance 3792 ml Intake Oral 1792 ml IV Total 2000 ml # Voids 3 General Appearance: Alert, Awake Cardiovascular: Other (Irregular with systolic murmur) Respiratory: Other (scattered rhonchi) GI: Soft and Non-Tender Extremities: Warm, Perfused, Edema Integumentary: Generalized Fragile Skin Result Diagram: 01/02/19 05001/02/19 0500 Assessment and Plan Problems: (1) Pulmonary emboli Status: Acute Assessment & Plan: Mostly right middle and lower lobes. No evidence for DVT in lower extremities. He reportedly was not taking his Xarelto as prescribed. Hematology and cardiology consulted from [place] and recommended no venous filters, but to treat with heparin or Lovenox followed by Xarelto. Initially, started on Lovenox 1mg/kg subcutaneous and transitioned to Xarelto (15mg BID). (2) CHF (congestive heart failure) Status: Chronic Assessment & Plan: BNP is very high. Certainly atrial fibrillation is contributing as is renal failure. Previous ECHO showed borderline low EF. Will use small dose of oral Lasix since he refuses IV after his experience in [place] with aggressive diuresis and a 35lb weight loss in a few days. Scheduled to see his cellophane casting machine repairer on Sunday here in [place]. (3) Chronic atrial fibrillation Status: Chronic Assessment & Plan: Suspect he was non adherent to beta shruthi as well. We did restart small dose metoprolol. (4) Elevated LFTs Status: Acute Assessment & Plan: Possibly due to liver congestion with CHF. Will follow labs. He does admit to heavy alcohol intake in past, but none for 36 years. (5) Mitral regurgitation Status: Chronic Assessment & Plan: Due to severely prolapsing mitral valve, now post mitral clipping in Nov 2018. Status is unclear at this time. Cardiology recommend EMIGDIO if he begins having symptoms which could be related to mitral clip thrombosis, otherwise no intervention needed. (6) IRON DEFICIENCY ANEMIA, UNSPECIFIED Status: Chronic Assessment & Plan: Continue iron daily. (7) Hypothyroidism Status: Chronic Assessment & Plan: Resume/continue thyroid extract 60 mg daily. Recheck TSH is still elevated at 13.2 (but this is improved). He will need follow up TSH in a few weeks. (8) Acute renal insufficiency Status: Acute Assessment & Plan: Creatinine at 1.5 on admission, improved to 1.2. Exam Sepsis Risk: No Definite Risk Problem Qualifiers (1) Pulmonary emboli: Pulmonary embolism type: other Chronicity: acute Acute cor pulmonale presence: without acute cor pulmonale Qualified Codes: I26.99 - Other pulmonary embolism without acute cor pulmonale JUN DEL VALLE MD Jan 03, 2019 13:34
[2019-01-03 14:34] VITALS: BP 82/75
[2019-01-03] MEDS: LORATADINE 10 MG TAB PO SCH (14:37)
[2019-01-03 19:28] VITALS: BP 101/87
[2019-01-03 23:28] VITALS: BP 95/81
[2019-01-04] VITALS (7 sets, daily range): BP systolic 90–118; BP diastolic 58–86
[2019-01-04] MEDS: THYROID 60 MG TAB PO SCH (05:36)
[2019-01-04 06:01] LABS: PLATELET COUNT, AUTOMATED 188 K/uL (150-450)
[2019-01-04] MEDS: FUROSEMIDE 20 MG TAB PO SCH ×2 (09:00→09:03)
[2019-01-04] MEDS: METOPROLOL SUCC XL 25 MG TABCR PO SCH ×2 (09:00→20:27)
[2019-01-04] MEDS: RIVAROXABAN 10 MG TAB PO SCH ×2 (09:02→20:27)
[2019-01-04] MEDS: LORATADINE 10 MG TAB PO SCH (09:03)
[2019-01-04] MEDS: FLUTICASONE PROP 0.05% 16 GM SCH (09:03)
--- NOTE | 2019-01-04 11:58 | Hospitalist Progress Note ---
Subjective Progress Notes Subjective This patient was admitted for pulmonary embolism. He had no acute events overnight. Patient Complains of: Cardiovascular: No: Chest Pain Respiratory: No: Shortness of Breath Physical Exam Vital Signs Date Time Temp Pulse Resp B/P (MAP) Pulse Ox O2 Delivery O2 Flow Rate FiO2 01/04/19 07:26 93 Nasal Cannula 4.0 01/04/19 07:26 104 01/04/19 06:50 97.5 18 94/73 (80) Intake and Output 01/04/19 07:00 Intake Total 472 ml Balance 472 ml Intake Oral 472 ml # Voids 5 # Bowel Movements 2 Cardiovascular: Regular Rate and Rhythm Respiratory: Clear to Auscultation Result Diagram: 01/04/19 0539 01/04/19 0539 Assessment and Plan Problems: (1) Pulmonary emboli Status: Acute Assessment & Plan: He had been on Xarelto, but apparently had not been taking it appropriately. A CT scan did show emboli in the right lung. Cardiology was contacted and recommended against IVC filter placement. He was placed on Lovenox initially, but is now back on the Xarelto. He will need to restart the loading dose at 15mg twice daily for 21 days. (2) CHF (congestive heart failure) Status: Chronic Assessment & Plan: His BNP is elevated and he has a large right sided pleural effusion. He refused IV diuretics because of extreme weight loss during his admission in [place]. He is on a small dose of oral Lasix. (3) Chronic atrial fibrillation Status: Chronic Assessment & Plan: He is on metoprolol with adequate rate control. He is also on Xarelto as above. (4) Elevated LFTs Status: Acute Assessment & Plan: Possibly due to liver congestion with CHF. Will follow labs. He does admit to heavy alcohol intake in past, but none for 36 years. (5) Mitral regurgitation Status: Chronic Assessment & Plan: Due to severely prolapsing mitral valve, now post mitral clipping in Nov 2018. Status is unclear at this time. Cardiology recommend EMIGDIO if he begins having symptoms which could be related to mitral clip thrombosis, otherwise no intervention needed. (6) IRON DEFICIENCY ANEMIA, UNSPECIFIED Status: Chronic Assessment & Plan: Continue iron daily. (7) Hypothyroidism Status: Chronic Assessment & Plan: Resume/continue thyroid extract 60 mg daily. Recheck TSH is still elevated at 13.2 (but this is improved). He will need follow up TSH in a few weeks. (8) Acute renal insufficiency Status: Acute Assessment & Plan: Creatinine at 1.5 on admission, improved to 1.2. Exam Sepsis Risk: No Definite Risk Problem Qualifiers (1) Pulmonary emboli: Pulmonary embolism type: other Chronicity: acute Acute cor pulmonale presence: without acute cor pulmonale Qualified Codes: I26.99 - Other pulmonary embolism without acute cor pulmonale (2) CHF (congestive heart failure): Heart failure type: systolic Heart failure chronicity: acute Qualified Codes: I50.21 - Acute systolic (congestive) heart failure TALA FULLER DO Jan 04, 2019 11:58
[2019-01-05 05:00] VITALS: BP 103/92
[2019-01-05] MEDS: THYROID 60 MG TAB PO SCH (06:06)
[2019-01-05 07:56] VITALS: BP 95/52
[2019-01-05] MEDS: FLUTICASONE PROP 0.05% 16 GM SCH (08:28)
[2019-01-05] MEDS: LORATADINE 10 MG TAB PO SCH (08:28)
[2019-01-05] MEDS: RIVAROXABAN 10 MG TAB PO SCH ×2 (08:28→21:08)
[2019-01-05] MEDS: METOPROLOL SUCC XL 25 MG TABCR PO SCH ×3 (08:29→21:07)
[2019-01-05] MEDS: FUROSEMIDE 20 MG TAB PO SCH (08:29)
--- NOTE | 2019-01-05 10:10 | Medical Nutrition Therapy ---
Nutrition Anthropometrics Height (Inches): 77.00 Height (Calculated Centimeters: 195.203157 Weight (Pounds): 190 Weight (Calculated Kilograms): 86.183 BMI: 23.7 Ja Nutrition Score: Probably Inadequate Ja Nutrition Risk Score: 16 Dietary Referral Nutrition Risk Factors: Unplanned Loss >10lbs Nutrition Risk Comment: Lost 32 pounds in 9 days when put on Lasix Physical Findings Physical Appearance: Skin Appearance Skin Appearance: Edema Edema Location Modifier: Both Edema Location: Lower Extremity Type of Edema: Degree of Edema: 1+ Gastrointestinal Symptoms GI Symtoms: Appetite Changes Tube Present: Bowel Sounds: Recent Bowel Pattern: Stool Characteristics: Nutritional Diagnosis Nutritional Risk Acuity 2: Unintended Wt Loss >5%/mo, CHF w/Complication Nutritional Risk Acuity 3: Weight Loss Nutritional Risk Acuity 4: Good Appetite Past Medical History: Hx atrial fibrillation, hypothyroidism, anemia, hypertension, mitral regurg. Nutritional Acuity: 2-Moderate Nutrition Diagnosis: Increased Nutrient Needs Nutrition Etiology: Physiological Causes Nutrition Problem/Etiology/Sym: Increased Nutrient needs related to physiological causes as evidenced by heart failure, atrial fibrillation, and self reported salt restrictio of 1000mg of Na/day. Energy Requirement: 2287 (MSJ, 1.1 TEF, 1.2 AF) Protein Requirement: 72 (0.8g/kg of BW) Fluid Requirement: 2287 (1kcal/1mL) Diet Type: Cardiac Nutrition Intervention: Cont diet as ordered, Encourage intake Drug: Diuretics Drug/Nutrition Recommendations: Check Serum K+, Potassium Supplement Nutrition Monitoring & Eval Nutrition Goals: Eat 50-100% Meal, Drink > 2 liters/day Nutrition Follow-Up: Good Intake Nutrition Monitoring: Pt intake varies depending on condition, but most meals are 100% consumed RD Patient Assessment Time: [address] Assessment Type: RD Assessment Patient Nutrition Acuity: 2-Moderate Follow Up Date: Jan 07, 2019 Nutritional Comment: Reconciliation Specialist note assess and approved by RD. -AKG 01/05 Pt continues on ALBINO with intakes varying, but consumption is usually 100%. Pt on furosemide (k wasting) diuretic and rivaroxaban. Pt BUN of 31, bilirubin of 2.3, AST of 94 and ALT of 146 are elevated. Total protein of 5.2 and albumin of 2.8 are low. B Natiuretic peptide of 1190 is elevated. Monitor for continuation of good intake.-AKTawana MDS Due Date: Jan 30, 2019 RAFAELA RENTERIA Jan 05, 2019 10:10
[2019-01-05] MEDS: SALINE 0.65% NAS SPR 44 ML BTL PRN (11:53)
[2019-01-05 11:57] VITALS: BP 103/65
[2019-01-05] MEDS ORDERED: DIGOXIN 0.5 MG/2 ML AMP IVP ONE ×2 (14:00→20:00)
[2019-01-05] MEDS ORDERED: AMIODARONE 200 MG TAB PO ONE (14:20)
--- NOTE | 2019-01-05 14:24 | Hospitalist Progress Note ---
Subjective Progress Notes Subjective He has had low normal BP. No reported light-headedness with ambulation. Physical Exam Vital Signs Date Time Temp Pulse Resp B/P (MAP) Pulse Ox O2 Delivery O2 Flow Rate FiO2 01/05/19 11:57 97.4 106 20 103/65 (78) 92 Nasal Cannula 4.0 Intake and Output 01/05/19 07:00 Intake Total 1098 ml Balance 1098 ml Intake Oral 1098 ml # Voids 3 # Bowel Movements 2 General Appearance: Alert, Awake, No Acute Distress Cardiovascular: Other (tachy, no m/r/g) Respiratory: Clear to Auscultation Extremities: Edema (1+ pitting in shins) Result Diagram: 01/04/1953801/04/19538 Assessment and Plan Problems: (1) Pulmonary emboli Status: Acute Assessment & Plan: He had been on Xarelto, but apparently had not been taking it appropriately. A CT scan did show emboli in the right lung. Cardiology was contacted and recommended against IVC filter placement. He was placed on Lovenox initially, but is now back on the Xarelto. He will need to restart the loading dose at 15mg twice daily for 21 days. (2) CHF (congestive heart failure) Status: Chronic Assessment & Plan: His BNP is elevated and he has a large right sided pleural effusion. EF is 20-25% (01/04) which is reduced from 35-40% post mitral valve clipping (11/29). He refused IV diuretics because of extreme weight loss during his admission in [place]. He is on a small dose of oral Lasix. Will attempt to better rate control. See below. Cardiology recommends a repeat echo when he is better rate controlled. (3) Chronic atrial fibrillation Status: Chronic Assessment & Plan: He is chronically on metoprolol, but concerned about him taking it consistently. Since admission, doses have been held secondary to low normal BP. HR 90's-120's. Will load with amiodarone, per the recommendations of Cardiology. He is also on Xarelto as above. (4) Elevated LFTs Status: Acute Assessment & Plan: Possibly due to liver congestion with CHF. Will follow labs. He does admit to heavy alcohol intake in past, but none for 36 years. (5) Mitral regurgitation Status: Chronic Assessment & Plan: Due to severely prolapsing mitral valve, now post mitral clipping in Nov 2018. Status is unclear at this time. Cardiology recommend EMIGDIO if he begins having symptoms which could be related to mitral clip thrombosis, otherwise no intervention needed. (6) IRON DEFICIENCY ANEMIA, UNSPECIFIED Status: Chronic Assessment & Plan: Continue iron daily. (7) Hypothyroidism Status: Chronic Assessment & Plan: Resume/continue thyroid extract 60 mg daily. Recheck TSH is still elevated at 13.2 (but this is improved). He will need follow up TSH in a few weeks. (8) Acute renal insufficiency Status: Acute Assessment & Plan: Creatinine at 1.5 on admission, improved to 0.9 Exam Sepsis Risk: No Definite Risk Problem Qualifiers (1) Pulmonary emboli: Pulmonary embolism type: other Chronicity: acute Acute cor pulmonale presence: without acute cor pulmonale Qualified Codes: I26.99 - Other pulmona ry embolism without acute cor pulmonale (2) CHF (congestive heart failure): Heart failure type: systolic Heart failure chronicity: acute Qualified Codes: I50.21 - Acute systolic (congestive) heart failure PATRICIO PRIDE MD Jan 05, 2019 14:24
[2019-01-05 16:12] VITALS: BP 109/81
[2019-01-05 21:04] VITALS: BP 104/79
[2019-01-06] MEDS ORDERED: AMIODARONE 200 MG TAB PO ONE
[2019-01-06 05:29] VITALS: BP 112/77
[2019-01-06] MEDS: THYROID 60 MG TAB PO SCH (05:53)
[2019-01-06 06:32] VITALS: BP 96/78
[2019-01-06] MEDS: RIVAROXABAN 10 MG TAB PO SCH ×2 (08:47→20:48)
[2019-01-06] MEDS: AMIODARONE 200 MG TAB PO SCH ×2 (08:48→20:48)
[2019-01-06] MEDS: LORATADINE 10 MG TAB PO SCH (08:48)
[2019-01-06] MEDS: FLUTICASONE PROP 0.05% 16 GM SCH (08:49)
[2019-01-06] MEDS: METOPROLOL SUCC XL 25 MG TABCR PO SCH ×2 (09:00→20:48)
[2019-01-06] MEDS: FUROSEMIDE 20 MG TAB PO SCH (09:00)
[2019-01-06] MEDS ORDERED: METOLAZONE 2.5 MG TAB PO SCH (13:00)
[2019-01-06 13:06] VITALS: BP 102/81
--- NOTE | 2019-01-06 15:22 | Hospitalist Progress Note ---
Subjective Progress Notes Subjective 78M admitted with exacerbation of CHF. Discussed with pt that he will continue to have slowly increasing SOB until we are allowed to diurese him. He agreed to try another diuretic as he assigns many adverse symptoms to Lasix. Patient Complains of: Gastrointestinal: No Nausea, No Vomiting Physical Exam Vital Signs Date Time Temp Pulse Resp B/P (MAP) Pulse Ox O2 Delivery O2 Flow Rate FiO2 01/06/19 13:06 97.8 95 18 102/81 (88) 95 Nasal Cannula 4.0 Intake and Output 01/06/19 07:00 Intake Total 910 ml Balance 910 ml Intake Oral 910 ml # Voids 5 # Bowel Movements 3 General Appearance: Alert, Awake, No Acute Distress, Afebrile Neuro: No Gross deficits ENT: Normal Cardiovascular: Other (irregularly irregular) Respiratory: No Respiratory Distress GI: Soft and Non-Tender Extremities: Soft and Non Tender, Warm, Pulses, Perfused, Edema Result Diagram: 01/04/1953801/04/19538 Assessment and Plan Problems: (1) Pulmonary emboli Status: Acute Assessment & Plan: He had been on Xarelto, but apparently had not been taking it appropriately. A CT scan did show emboli in the right lung. Cardiology was contacted and recommended against IVC filter placement. He was placed on Lovenox initially, but is now back on the Xarelto. He will need to restart the loading dose at 15mg twice daily for 21 days. (2) CHF (congestive heart failure) Status: Chronic Assessment & Plan: His BNP is elevated and he has a large right sided pleural effusion. EF is 20-25% (01/04) which is reduced from 35-40% post mitral valve clipping (11/29). He refused IV diuretics because of extreme weight loss during his admission in [place]. Will attempt to better rate control. See below. Cardiology recommends a repeat echo when he is better rate controlled. Refuses all Lasix, will change to metolazone 2.5mg. (3) Chronic atrial fibrillation Status: Chronic Assessment & Plan: He is chronically on metoprolol, but concerned about him ta milad it consistently. Since admission, doses have been held secondary to low normal BP. HR 90's-120's. Started on amiodarone, per the recommendations of Cardiology. He is also on Xarelto as above. (4) Elevated LFTs Status: Acute Assessment & Plan: Possibly due to liver congestion with CHF. Will follow labs. He does admit to heavy alcohol intake in past, but none for 36 years. Have baseline will need to follow with addition of amiodarone. (5) Mitral regurgitation Status: Chronic Assessment & Plan: Due to severely prolapsing mitral valve, now post mitral cli pping in Nov 2018. Status is unclear at this time. Cardiology recommend EMIGDIO if he begins having symptoms which could be related to mitral clip thrombosis, otherwise no intervention needed. (6) IRON DEFICIENCY ANEMIA, UNSPECIFIED Status: Chronic Assessment & Plan: Continue iron daily. (7) Hypothyroidism Status: Chronic Assessment & Plan: Resume/continue thyroid extract 60 mg daily. Recheck TSH is still elevated at 13.2 (but this is improved). He will need follow up TSH in a few weeks. (8) Acute renal insufficiency Status: Acute Assessment & Plan: Creatinine at 1.5 on admission, improved to 0.9 Exam Sepsis Risk: No Definite Risk Problem Qualifiers (1) Pulmonary emboli: Pulmonary embolism type: other Chronicity: acute Acute cor pulmonale presence: without acute cor pulmonale Qualified Codes: I26.99 - Other pulmonary embolism without acute cor pulmonale (2) CHF (congestive heart failure): Heart failure type: systolic Heart failure chronicity: acute Qualified Codes: I50.21 - Acute systolic (congestive) heart failure JAZZY CORREA DO Jan 06, 2019 15:22
[2019-01-06 16:46] VITALS: BP 102/83
[2019-01-06 19:34] VITALS: BP 106/88
[2019-01-07] VITALS (9 sets, daily range): BP systolic 84–113; BP diastolic 66–98
[2019-01-07] MEDS: THYROID 60 MG TAB PO SCH (06:18)
[2019-01-07] MEDS: FLUTICASONE PROP 0.05% 16 GM SCH (10:22)
[2019-01-07] MEDS: BUMETANIDE 2 MG TAB PO SCH (10:22)
[2019-01-07] MEDS: RIVAROXABAN 10 MG TAB PO SCH ×2 (10:23→21:27)
[2019-01-07] MEDS: LORATADINE 10 MG TAB PO SCH (10:23)
[2019-01-07] MEDS: AMIODARONE 200 MG TAB PO SCH ×2 (10:23→21:26)
[2019-01-07] MEDS: METOPROLOL SUCC XL 25 MG TABCR PO SCH ×2 (10:24→21:00)
--- NOTE | 2019-01-07 10:59 | Hospitalist Progress Note ---
Subjective Progress Notes Subjective This patient was admitted for pulmonary embolism. He had no acute events overnight. Patient Complains of: Cardiovascular: No: Chest Pain Respiratory: No: Shortness of Breath Physical Exam Vital Signs Date Time Temp Pulse Resp B/P (MAP) Pulse Ox O2 Delivery O2 Flow Rate FiO2 01/07/19 08:25 95 Nasal Cannula 4.0 01/07/19 08:17 97.7 106 18 94/81 (85) Intake and Output 01/07/19 07:00 Intake Total 676 ml Output Total 225 ml Balance 451 ml Intake Oral 676 ml Output Urine Total 225 ml # Voids 2 Cardiovascular: Regular Rate and Rhythm Respiratory: Clear to Auscultation Extremities: Edema Result Diagram: 01/04/19 0539 01/07/19 0534 Assessment and Plan Problems: (1) Pulmonary emboli Status: Acute Assessment & Plan: He had been on Xarelto, but apparently had not been taking it appropriately. A CT scan did show emboli in the right lung. Cardiology was contacted and recommended against IVC filter placement. He was placed on Lovenox initially, but is now back on the Xarelto. He will need to restart the loading dose at 15mg twice daily for 21 days. (2) CHF (congestive heart failure) Status: Chronic Assessment & Plan: His BNP is elevated and he has a large right sided pleural effusion. EF is 20-25% (01/04) which is reduced from 35-40% post mitral valve clipping (11/29). He refused IV diuretics because of extreme weight loss during his admission in [place]. He has agreed to try a daily dose of Bumex. Cardiology has recommended a repeat echocardiogram once he is better rate controlled with his atrial fibrillation. (3) Chronic atrial fibrillation Status: Chronic Assessment & Plan: He is chronically on metoprolol, but concerned about him taking it consistently. Since admission, doses have been held secondary to low normal BP. HR 90's-120's. Started on amiodarone, per the recommendations of Cardiology. He is also on Xarelto as above. (4) Elevated LFTs Status: Acute Assessment & Plan: Possibly due to liver congestion with CHF. Will follow labs. He does admit to heavy alcohol intake in past, but none for 36 years. Have baseline will need to follow with addition of amiodarone. (5) Mitral regurgitation Status: Chronic Assessment & Plan: Due to severely prolapsing mitral valve, now post mitral clipping in Nov 2018. Status is unclear at this time. Cardiology recommend EMIGDIO if he begins having symptoms which could be related to mitral clip thrombosis, otherwise no intervention needed. (6) IRON DEFICIENCY ANEMIA, UNSPECIFIED Status: Chronic Assessment & Plan: Continue iron daily. (7) Hypothyroidism Status: Chronic Assessment & Plan: Resume/continue thyroid extract 60 mg daily. Recheck TSH is still elevated at 13.2 (but this is improved). He will need follow up TSH in a few weeks. (8) Acute renal insufficiency Status: Acute Assessment & Plan: Creatinine at 1.5 on admission, improved to 0.9 Exam Sepsis Risk: No Definite Risk Problem Qualifiers (1) Pulmonary emboli: Pulmonary embolism type: other Chronicity: acute Acute cor pulmonale presence: without acute cor pulmonale Qualified Codes: I26.99 - Other pulmonary embolism without acute cor pulmonale (2) CHF (congestive heart failure): Heart failure type: systolic Heart failure chronicity: acute Qualified Codes: I50.21 - Acute systolic (congestive) heart failure TALA FULLER DO Jan 07, 2019 10:59
--- NOTE | 2019-01-07 13:54 | Medical Nutrition Therapy ---
Nutrition Anthropometrics Height (Inches): 77.00 Height (Calculated Centimeters: 195.531419 Weight (Pounds): 202 Weight (Calculated Kilograms): 91.739 BMI: 23.7 Ja Nutrition Score: Very Poor Ja Nutrition Risk Score: 14 Dietary Referral Nutrition Risk Factors: Unplanned Loss >10lbs Nutrition Risk Comment: Lost 32 pounds in 9 days when put on Lasix Nutritional Diagnosis Nutritional Risk Acuity 2: Unintended Wt Loss >5%/mo, CHF w/Complication Nutritional Risk Acuity 3: Weight Loss Nutritional Risk Acuity 4: Good Appetite Past Medical History: Hx atrial fibrillation, hypothyroidism, anemia, hypertension, mitral regurg. Nutritional Acuity: 2-Moderate Nutrition Diagnosis: Increased Nutrient Needs Nutrition Etiology: Physiological Causes Nutrition Problem/Etiology/Sym: Increased Nutrient needs related to physiological causes as evidenced by heart failure, atrial fibrillation, and self reported salt restrictio of 1000mg of Na/day. Energy Requirement: 2287 (MSJ, 1.1 TEF, 1.2 AF) Protein Requirement: 72 (0.8g/kg of BW) Fluid Requirement: 2287 (1kcal/1mL) Diet Type: Diet as Tolerated ALBINO/REG Nutrition Intervention: Encourage intake, Change diet Drug: Diuretics Nutrition Monitoring & Eval Nutrition Goals: Eat 75-100% Meal Nutrition Follow-Up: Poor Intake RD Patient Assessment Time: [address] Assessment Type: RD Re-Assessment Patient Nutrition Acuity: 2-Moderate Follow Up Date: Jan 12, 2019 Nutritional Comment: Lamp Wirer note assess and approved by RD. -[facility] 01/05 Pt continues on ALBINO with intakes varying, but consumption is usually 100%. Pt on furosemide (k wasting) diuretic and rivaroxaban. Pt BUN of 31, bilirubin of 2.3, AST of 94 and ALT of 146 are elevated. Total protein of 5.2 and albumin of 2.8 are low. B Natiuretic peptide of 1190 is elevated. Monitor for continuation of good intake.-[facility] 01/07 Pt cont on ALBINO diet. Intake average 31% past 3 days. Pt admitted for PE with chronic CHF. Pt is on K+ depeting diuretic with 1+ edema that has improved from 2+. Pt may benefit from CHF diet to ensure less Na intake. BUN cont elevated at 45, creatinine elevated at 1.3.. K+ elevated at 5.2. Will cont to monitor. MARSHA ZAMORA Jan 07, 2019 13:54
[2019-01-08 04:24] VITALS: BP 115/67
[2019-01-08] MEDS: THYROID 60 MG TAB PO SCH (06:00)
[2019-01-08 08:18] VITALS: BP 89/78
[2019-01-08] MEDS: FLUTICASONE PROP 0.05% 16 GM SCH (08:25)
[2019-01-08] MEDS: RIVAROXABAN 10 MG TAB PO SCH (08:26)
[2019-01-08] MEDS: LORATADINE 10 MG TAB PO SCH (08:26)
[2019-01-08] MEDS: BUMETANIDE 2 MG TAB PO SCH (08:26)
[2019-01-08] MEDS: AMIODARONE 200 MG TAB PO SCH (08:26)
[2019-01-08] MEDS: METOPROLOL SUCC XL 25 MG TABCR PO SCH (08:26)
[2019-01-08 11:18] VITALS: BP 99/83
[2019-01-08] MEDS: SALINE 0.65% NAS SPR 44 ML BTL PRN (12:06)
[2019-01-08] MEDS ORDERED: guaiFENesin 600 MG TABCR PO PRN (13:35)
--- NOTE | 2019-01-08 15:51 | Transfer Summary (ECF/SWB) ---
Transfer Summary (ECF/SWB) Problems: (1) Pulmonary emboli Status: Acute Assessment & Plan: He had been on Xarelto, but apparently had not been taking it appropriately. A CT scan did show emboli in the right lung. Cardiology was contacted and recommended against IVC filter placement. He was placed on Lovenox initially, but is now back on the Xarelto. He will need to restart the loading dose at 15mg twice daily for 21 days. (2) CHF (congestive heart failure) Status: Chronic Assessment & Plan: His BNP is elevated and he has a large right sided pleural effusion. EF is 20-25% (01/04) which is reduced from 35-40% post mitral valve clipping (11/29). He refused IV Lasix because of extreme weight loss during his admission in [place]. He did agree to try Bumex and received doses on 01/07 and 01/08. He did get one dose of metolazone on 01/06. Diuretics have been stopped because his creatinine increased. See below. Cardiology has recommended a repeat echocardiogram once he is better rate controlled with his atrial fibrillation. (3) Chronic atrial fibrillation Status: Chronic Assessment & Plan: He is chronically on metoprolol, but there is concern he wasn't taking it consistently. Since admission, doses have been held secondary to low normal BP. HR 90's-120's. Started on amiodarone with an oral loading dose started on 01/05, per the recommendations of Cardiology. He will need a total of a 12 day load to get almost 10g (8 more days while on ECF) and then will be started on amiodarone 200mg a day. He is also on Xarelto as above. (4) Acute renal insufficiency Status: Acute Assessment & Plan: Creatinine at 1.5 on admission, improved to 0.9; but now 1.4 after diuresis. Stopping Bumex. Recheck tomorrow. (5) Elevated LFTs Status: Acute Assessment & Plan: Possibly due to liver congestion with CHF. Will follow labs. He does admit to heavy alcohol intake in past, but none for 36 years. Have baseline will need to follow with addition of amiodarone. (6) Mitral regurgitation Status: Chronic Assessment & Plan: Due to severely prolapsing mitral valve, now post mitral clipping in Nov 2018. Status is unclear at this time. Cardiology recommend EMIGDIO if he begins having symptoms which could be related to mitral clip thrombosis, otherwise no intervention needed. (7) Hypothyroidism Status: Chronic Assessment & Plan: Resume/continue thyroid extract 60 mg daily. Recheck TSH is still elevated at 13.2 (but this is improved). He will need follow up TSH in a few weeks. Latest Vital Signs Vital Signs Date Time Temp Pulse Resp B/P (MAP) Pulse Ox O2 Delivery O2 Flow Rate FiO2 01/08/19 11:18 97.8 83 20 99/83 (88) 91 Nasal Cannula 4.0 Result Diagram: 01/04/19 0539 01/08/19 1217 Diagnostics Item Value Date Time White Blood Count 7.6 k/uL 01/01/19 1210 White Blood Count 5.7 k/uL 01/02/19 0500 White Blood Count 5.5 k/uL 01/04/19 0539 Hemoglobin 15.1 g/dL 01/01/19 1210 Hemoglobin 13.3 g/dL L 01/02/19 0500 Hemoglobin 14.0 g/dL 01/04/19 0539 Platelet Count 253 K/uL 01/01/19 1210 Platelet Count 181 K/uL 01/02/19 0500 Platelet Count 188 K/uL 01/04/19 0539 Neutrophils (%) (Auto) 79.9 % H 01/01/19 1210 Neutrophils (%) (Auto) 66.2 % 01/02/19 0500 Neutrophils (%) (Auto) 69.0 % 01/04/19 0539 Prothromb Time International Ratio 2.03 01/02/19 0500 Prothromb Time International Ratio 3.64 01/03/19 0527 Sodium Level 134 mmol/L L 01/01/19 1210 Potassium Level 5.2 mmol/L H 01/01/19 1210 Chloride Level 99 mmol/L 01/01/19 1210 Carbon Dioxide Level 19 mmol/L L 01/01/19 1210 Blood Urea Nitrogen 28 mg/dl H 01/01/19 1210 Creatinine 1.50 mg/dl H 01/01/19 1210 Total Bilirubin 3.3 mg/dl H 01/01/19 1210 Aspartate Amino Transf (AST/SGOT) 107 U/L H 01/01/19 1210 Alanine Aminotransferase (ALT/SGPT) 121 U/L H 01/01/19 1210 Alkaline Phosphatase 97 U/L 01/01/19 1210 Troponin I 0.017 ng/ml 01/01/19 1210 B-Type Natriuretic Peptide 1520 pg/ml H 01/01/19 1210 Total Bilirubin 2.1 mg/dl H 01/02/19 0500 Aspartate Amino Transf (AST/SGOT) 110 U/L H 01/02/19 0500 Alanine Aminotransferase (ALT/SGPT) 130 U/L H 01/02/19 0500 Blood Urea Nitrogen 29 mg/dl H 01/02/19 0500 Creatinine 1.20 mg/dl 01/02/19 0500 Potassium Level 4.2 mmol/L 01/04/19 0539 Blood Urea Nitrogen 31 mg/dl H 01/04/19 0539 Creatinine 0.90 mg/dl 01/04/19 0539 Blood Urea Nitrogen 45 mg/dl H 01/07/19 0534 Creatinine 1.30 mg/dl H 01/07/19 0534 Blood Urea Nitrogen 49 mg/dl H 01/08/19 0531 Creatinine 1.50 mg/dl H 01/08/19 0531 Blood Urea Nitrogen 52 mg/dl H 01/08/19 1217 Creatinine 1.40 mg/dl H 01/08/19 1217 Potassium Level 4.0 mmol/L 01/08/19 1217 Potassium Level 3.7 mmol/L 01/08/19 0531 Potassium Level 5.2 mmol/L H 01/07/19 0534 Sodium Level 132 mmol/L L 01/04/19 0539 Sodium Level 129 mmol/L L 01/07/19 0534 Sodium Level 131 mmol/L L 01/08/19 0531 Sodium Level 133 mmol/L L 01/08/19 1217 Total Bilirubin 2.3 mg/dl H 01/04/19 0539 Aspartate Amino Transf (AST/SGOT) 94 U/L H 01/04/19 0539 Alanine Aminotransferase (ALT/SGPT) 146 U/L H 01/04/19 0539 B-Type Natriuretic Peptide 1190 pg/ml H 01/02/19 0500 Thyroid Stimulating Hormone (TSH) 13.20 uIU/ml H 01/02/19 0500 Urine Hyaline Casts Many /LPF H 01/02/19 0000 Urine RBC 4 /HPF 2/14/19 0000 Urine WBC 1 /HPF 01/02/19 0000 D-Dimer Quantitative (PE/DVT) 2.38 ug/ml H 01/01/19 1210 01/04/19 Echo - EF 20-25%, LA is severely enlarged, mitral clip is in appropriate position and stable, severe pulmonary hypertension, 01/01/19 Chest CTA - 1. Positive pulmonary emboli. There is emboli seen in the branch of the right lower and middle pulmonary arteries extending into the segmental and subsegmental branches of both the right middle lobe and right l ower lobe pulmonary arteries. No other discrete emboli is identified. There is some artifact seen in the main pulmonary arteries without discrete well-defined central pulmonary artery aneurysm. 2. Moderate right pleural effusion with associated atelectasis. Minimal left pleural effusion with atelectasis. 3. Cardiomegaly. There is reflux contrast from the right atrium into the IVC and hepatic veins. This nonspecific but could be due to cardiac decompensation. 4. 5 mm nodule in the left upper lobe. This too small characterize and could be postinflammatory. Suggest follow-up per Fleischner guidelines described below. 01/01/19 CXR - Worsening right pleural effusion. Probable right base infiltrate. Hospital Course/Plan Going to ECF for continued therapy. Condition: Improved Disposition: SNF/NH Inpatient Medications See med rec Treatment Goals and Plan Patient requires detention for [facility] of Life Care/Com[facility] and is ready for admission to Extended Care. Any change in condition is described below. Services Required: PT, OT Copies To 1: QAMAR SANCHEZ MD; WHIT PATTERSON ; Problem Qualifiers (1) Pulmonary emboli: Pulmonary embolism type: other Chronicity: acute Acute cor pulmonale presence: without acute cor pulmonale Qualified Codes: I26.99 - Other pulmonary embolism without acute cor pulmonale (2) CHF (congestive heart failure): Heart failure type: systolic Heart failure chronicity: acute Qualified Codes: I50.21 - Acute systolic (congestive) heart failure PATRICIO PRIDE MD Jan 08, 2019 15:51
== END 2019-01-08 14:20 | DRG 175 ==
LOC: ER 11:58 → MED 16:30
PROVIDERS: ADMIT Internal Medicine; ATTEND Internal Medicine
DX: I26.09 Other pulmonary embolism with acute cor pulmonale (principal); I50.21 Acute systolic (congestive) heart failure; N17.9 Acute kidney failure, unspecified; I26.99 Other pulmonary embolism without acute cor pulmonale; I34.0 Nonrheumatic mitral (valve) insufficiency; I48.2 Chronic atrial fibrillation; E78.5 Hyperlipidemia, unspecified; T45.516A Underdosing of anticoagulants, initial encounter; K21.9 Gastro-esophageal reflux disease without esophagitis; E03.9 Hypothyroidism, unspecified; G89.29 Other chronic pain; I27.20 Pulmonary hypertension, unspecified; I34.1 Nonrheumatic mitral (valve) prolapse; D50.9 Iron deficiency anemia, unspecified; I25.2 Old myocardial infarction; Z87.891 Personal history of nicotine dependence; Z88.0 Allergy status to penicillin; Z79.01 Long term (current) use of anticoagulants; Z91.14 Patient's other noncompliance with medication regimen
CPT/HCPCS: 36415; 71046; 71275; 81001; 82040; 82247; 82310; 82374; 82435; 82565; 82947; 83735; 83880; 84075; 84132; 84155; 84295; 84443; 84450; 84460; 84484; 84520; 85025; 85379; 85610; 87040; 93005; 93306; 96361; 96374; 97163; 97166; 99285; J1650; J2550; J3490; J7030; J7040; J7050; Q9967

== ENCOUNTER 2019-01-08 14:20 | Inpatient (IN) | payer MEDICARE ==
[2019-01-02 15:17] VITALS: Ht 195.6 cm; Wt 90.0 kg
[~2019-01-08] VITALS: Ht 195.6 cm; Wt 90.0 kg
[~2019-01-08 14:20] MED LIST changes: +METO25TA93 PO
[2019-01-08] MEDS ORDERED: SALINE 0.65% NAS SPR 44 ML BTL PRN (14:55)
[2019-01-08] MEDS ORDERED: LORATADINE 10 MG TAB PO SCH (14:55)
[2019-01-08] MEDS ORDERED: AMIODARONE 200 MG TAB PO SCH (14:55)
--- NOTE | 2019-01-08 15:27 | NUR ---
Physical Therapy Impression This PT was working with Pt on Med/Surg when it was time to transfer Pt to ECF, thus, this PT performed functional evaluation immediately upon arrival to [facility] with orders in paper chart for PT eval. Physical Therapy Goals 1. Mod I bed mobility. 2. Mod I transfers from a variety of surfaces. 3. SBA car transfer. 4. Mod I gait x 150' with appropriate assistive device. 5. Ascend/descend 4 stairs with 1 rail and SBA. 6. Independent O2 tubing management with functional mobility. 7. Mod I picking up an object off the floor. Patient's Goals
--- NOTE | 2019-01-08 15:37 | PT ECF NOTE ---
Type of Note: Initial Note 01/08/19 Primary Medical Diagnosis: PE, CHF exacerbation, A-Fib, s/p Mitral valve clipping 11/2018 Physical Therapy Evaluation Date: 01/08/19 SUBJECTIVE: Prior Hospitalization: Pt recently discharged from [facility]. Pt returned to [facility] Med/Surg unit with dx of PE, CHF exacerbation, A-Fib. Please see [facility] for details regarding this admission from 01/01-. Prior Level of Function: Pt Mod I with functional mobility using either a RW or walking sticks for ambulation. Pt was receiving home health therapy services. Prior Living Status: Single level house, Alone Community Services: [facility] Accessibility: 4 Stairs with rail, Pt has placed blocks on each step to make "half steps" Equipment Owned: Front wheeled walker, Walking sticks Medical Com[facility]: [facility] Psych[facility] Support: Supportive daughter who lives in [place] Pain Scale (0-10): Pt denies pain OBJECTIVE: Bed Mobility: SBA supine>sit with head of bed fully raised; sit>supine not evaluated Assistive device: Bed rail, Head of bed elevated Transfers: Minimum assistance Assistive Device: Front wheeled walker Gait: CGA x5' Assistive device: Front wheeled walker Stairs: not evaluated Timed Up and Go (>12 seconds indicated increased risk for falls): Pt unable to ambulate 10' with therapy and required Min A to stand. 10 meter walk test (0.6m/second cannot function independently): Pt unable to tolerate. ASSESSMENT: Pt presents with decreased functional strength and tolerance to activity resulting in decreased independence with safety with functional mobility. Pt will benefit from skilled PT for functional strengthening, functional mobility and safety training, and to increase tolerance to activity in order to return to living independently. Problem List/Current Limitations: Decreased activity tolerance, Decreased strength, Generalized weakness, Poor safety awareness, Shortness of breath Short Term Goals: 1. Mod I bed mobility. 2. Mod I transfers from a variety of surfaces. 3. SBA car transfer. 4. Mod I gait x 150' with appropriate assistive device. 5. Ascend/descend 4 stairs with 1 rail and SBA. 6. Independent O2 tubing management with functional mobility. 7. Mod I picking up an object off the floor. Retirement Goals: Return home Patient Goals: "Be able to get into a car". Pt's daughter state she wants him to be able to manage O2 out of the home. Rehabilitation Prognosis: Fair Barriers for Discharge: Pt's reluctance to utilize recommended adaptive equipment and therapy interventions to increase safety and independence with functional mobility. PLAN: The patient will benefit from skilled physical therapy services 5 times per week for 2 weeks including: Therapeutic Exercise, Therapeutic Activities, Transfer Training, Gait Training, Stair Training, Manual Therapy, ADL's, Safety Training, Neuromuscular Re-educ., Pt/Caregiver Training, Bed Mobility Thank you for this referral. If you have any questions, concerns, or comments about this report or plan, please contact me at . Na Tabor, PT, DPT, GCS MTDD
--- NOTE | 2019-01-08 15:40 | Consultant Pharmacy Review ---
[place] Insertion Loom Fixer Review Medication Review Do All Mecications have a Diag: Yes Beers Criteria Medication 2014 Amiodarone: Amiodarone (A-FIB HISTORY) Disiccated Thyroid: Disiccated Thyroid (HYPOTHYROIDISM) Pneumococcal Vaccine HX Pneumo Vac ([id number]): No (Never) HX Pneumo Vac (Pneumovax): No (Never) Comments Regarding the Review Patient has a history of arrhythmias and is currently taking loratadine and amiodarone. This combo has a risk of QT elongation and arrhythmias. I contacted the hospitalist and suggested a different allergy medication. Patient was switched to cetirizine. Patient takes [place] thyroid which has a variable T3/T4 concentration and can also contribute to cardiac irregularities. Patient may benefit from changing to a different therapy for hypothyroidism. MD Notified? MD Notified?: Yes, New Orders Received (STOP LORATADINE, START CETIRIZINE) HAMZAH PHILLIPS Jan 08, 2019 15:40
[2019-01-08 18:05] VITALS: BP 106/70
[2019-01-08] MEDS: AMIODARONE 200 MG TAB PO SCH (20:43)
[2019-01-08] MEDS: METOPROLOL SUCC XL 25 MG TABCR PO SCH (20:43)
[2019-01-08] MEDS: RIVAROXABAN 10 MG TAB PO SCH (20:43)
--- NOTE | 2019-01-08 22:03 | NUR ---
It was reported that patient was found on the floor while on the med\surg unit. A bed alarm will be used tonight to assess if patient will call appropriately. So far this shift he has.
[2019-01-09] MEDS: THYROID 60 MG TAB PO SCH (06:14)
[2019-01-09 07:45] VITALS: BP 105/70
--- NOTE | 2019-01-09 09:20 | NUR ---
Long conversation with resident and daughter. Daughter really wants the resident to move closer to her and in assisted living. Resident is receptive to receiving counseling for the changes which are occurring in his life. KAREN Arevalo notified and case discussed. Resident also agreeable to speech cognition evaluation.
[2019-01-09 09:22] VITALS: BP 102/55
[2019-01-09] MEDS: METOPROLOL SUCC XL 25 MG TABCR PO SCH ×2 (09:25→20:34)
[2019-01-09] MEDS: CETIRIZINE HCL 10 MG TAB PO SCH (09:25)
[2019-01-09] MEDS: AMIODARONE 200 MG TAB PO SCH ×2 (09:25→20:33)
--- NOTE | 2019-01-09 09:25 | NUR ---
Physical Therapy Impression Pt demonstrating good sequencing prior to initiating STS transfer. Pt required modA x1 for STS, increased difficulty likely due to low height of chair, but does demonstrate good stand to sit control. Ambulation x30' with RW with fair tolerance, pt demonstrating overall decreased activity tolerance. Continue with POC. Physical Therapy Goals 1. Mod I bed mobility. 2. Mod I transfers from a variety of surfaces. 3. SBA car transfer. 4. Mod I gait x 150' with appropriate assistive device. 5. Ascend/descend 4 stairs with 1 rail and SBA. 6. Independent O2 tubing management with functional mobility. 7. Mod I picking up an object off the floor. Patient's Goals
[2019-01-09] MEDS: FLUTICASONE PROP 0.05% 16 GM SCH (09:26)
[2019-01-09] MEDS: RIVAROXABAN 10 MG TAB PO SCH ×2 (09:26→20:33)
--- NOTE | 2019-01-09 12:32 | Medical Nutrition Therapy ---
Nutrition Anthropometrics Height (Inches): 77 (from med unit) Weight (Pounds): 199 (from med unit) BMI: 23.6 Ja Nutrition Score: Ja Nutrition Risk Score: Dietary Referral Nutrition Risk Factors: Unplanned Loss >10lbs Nutrition Risk Comment: Lost 32 pounds in 9 days when put on Lasix Nutritional Diagnosis Nutritional Risk Acuity 3: Fair Appetite, Weight Loss (pt reports wt loss when put on lasix) Past Medical History: Hx atrial fibrillation, hypothyroidism, anemia, hypertension, mitral regurg, renal insuffiency, CHF Nutritional Acuity: 3-Mild Energy Requirement: 2287 (MSJ X 1.1 SF) Protein Requirement: 72 (.8gm/kg) Fluid Requirement: 2287 (1ml/kcal) Diet Type: Diet as Tolerated ALBINO/REG Nutrition Intervention: Cont diet as ordered, Encourage intake Food Likes: breakfast- 7am, lunch- 12pm, dinner- 530pm Additional Diet Restrictions: BREAKFAST AT 7:00, LUNCH AT 12:00 Nutrition Monitoring & Eval Nutrition Goals: Eat 75-100% Meal RD Patient Assessment Time: [address] Assessment Type: RD Assessment Patient Nutrition Acuity: 3-Mild Follow Up Date: Jan 14, 2019 Nutritional Comment: 01/09 Pt admitted s/p PE. pt has hx of CHF and renal insuffiency. BUN cont elelvated at 51, creatinine elevated at 1.3. Will encourage adequate but not excessive protein. Pt is on regular diet Ate 75% in ECF. Alb 2.7. Pt has 3+ edema BLE. Anticipate wt loss when edema resolved. Pt may benefit from CHF diet. Will cont to monitor and encourage intake. MARSHA ZAMORA Jan 09, 2019 12:32
--- NOTE | 2019-01-09 13:00 | NUR ---
SW spent 45 minutes with pt offering counseling services, specifically utilizing Motivational Interviewing. Pt reported feeling discouraged with his health declining in such a short period of time. Pt reporting being hospitalized in August 2018 after a heart attack, then having another heart attack in September, and having a procedure on his heart in October. Pt was hopeful the procedure would put everything back to how it was before the heart attack, but Im doing worse. Pt admitted to having feeling of grief and loss regarding his declining health and missing how I was doing before all this happened. Pt identified experiencing symptoms of depression on daily basis since his heart attack, including having lost interest in activities he enjoyed prior to the heart attack, having a decreased appetite, feeling hopeless, issued with his sleep, and feeling like others have recognized how much he has slowed down. Pt denies any suicidal thoughts. Pt reports he is back in hospital for this admission due to his heart arrhythmia and lung issues. SW discussed with pt what caused this and what actions are within his control to move forward and help him feel more content in his current situation, despite his heart issues. Pt reports he needs to adhere to a low sodium diet, slow down and not hanson, and to take his medications. SW further discussed each of these with pt and what he needs to do to reach his goals. Pt decided to set more immediate goals and work up to adhering to the diet and taking his medications, still stating he is not convinced these are important to his health. Pt appearing contemplative regarding his heart issues and health; realizing there are factors that could help his health including taking medications and adhering to his prescribed diet, however, he is ambivalent regarding his need to change these behaviors. Pt also stating several times the medications and low-sodium diet were not doing anything for him, so he stopped taking the medicine and eating how he was prescribed. Pt stating he knows he should change these behaviors, but is not convinced they will make a difference. KAREN will visit with pt next week to further discuss and encourage in moving forward in stages of change. Pt has decided to set immediate goals for himself while on ECF to work towards getting back home, being 1. Get off oxygen, 2. Trying to get more rest, 3. Get stronger. To reach these goals, pt plans to take small steps including working with rehab and doing exercises in between sessions, slowing down and resting when he feels fatigued, and trying to do these to hopefully get off his oxygen. Pt realizes he may not be able to discontinue the oxygen, but cites that as something he wants to try and accomplish. SW will visit with pt next week.
--- NOTE | 2019-01-09 13:40 | NUR ---
Occupational Therapy Impression Mod A sit<>stand from chair. CGA ambulation 2x10ft with RW. Slow, steady gait. SpO2 >90% on 2L. Mod A toileting with Max A for sit<>stand transfer. Pt requesting assist for sit<>stands, decreased adherence or initiation of v/c's. Set-up donning/doffing socks. Continue POC. Occupational Therapy Goals 1) Pt will be Mod (I) UB/LB dressing. 2) Pt will be Mod (I) toilet task. 3) Pt will be Independent grooming. 4) Pt will be SBA bathing. 5) Pt Reynold Index of ADLs score will improve by two points. 6) Pt will be Mod (I) light meal prep task. 7) Pt will be Min A medication management. Patient's Goal
--- NOTE | 2019-01-09 13:55 | OT ECF NOTE ---
Type of Note: Initial Note Primary Medical Diagnosis: Generalized weakness s/p hospital admission Occupational Therapy Evaluation Date: 01/09/19 SUBJECTIVE: Prior Hospitalization: Pt recently discharged from [facility]. Pt returned to [facility] Med/Surg unit with dx of PE, CHF exacerbation, A-Fib. Please see [facility] for details regarding this admission from 01/01/19 thru 01/08/19. Prior Level of Function: Pt was discharged home from [facility] 12/13/18 at a Mod (I) level. He was set to receive HH services. Pt reports all was going well except for "diuretic." Daughter reports pt was not prescribed a diuretic in recent weeks at home, refused HH assist, was not eating, and generally not caring for self in recent weeks. Prior Living Status: Bi-level house Alone Community Services: Home health alf Accessibility: Stairs with rails All needs on one level Tub/shower combination Equipment Owned: Front wheeled walker Cane Toilet riser Extended tub bench Medical Complications/Past Medical History: Please refer to EMR Psychosocial Support: Supportive daughter who resides Pain Scale (0-10): No report of pain at time of evaluation OBJECTIVE: Strength: MMT: Right Left Shoulder Flexion WFL WFL Elbow Flexion WFL WFL Wrist Extension WFL WFL Warrant Clerk WFL WFL (5= normal, 4= good, 3= fair, 2= poor, 1= trace) ROM: Both upper extremities, WFL Sensation: No paresthesia reported Functional Transfer: Assistive Device: Front wheeled walker, Gait belt Transfer Ability: 1-person assist, Moderate assistance ADL: Upper body dressing: Assistive device: None Upper body dressing ability: N/T Lower body dressing: Assistive device: None Lower body dressing ability: Minimum assistance Toileting: Assistive device: Raised toilet seat Toileting ability: Maximum assistance Grooming/hygiene: Assistive device: Grooming ability: N/T Bathing: Assistive device: Bathing ability: N/T Standardized Assessment: Reynold Index of Activities of Daily Livin/20 upon initial evaluation (01/09/19). ASSESSMENT: "uJan José" presents with decreased endurance and independence for ADLs/IADLs. He will benefit from skilled OT services to improve activity tolerance and (I) with ADLs prior to discharge to least restrictive environment. Problem List/Current Limitations: Decreased activity tolerance Decreased strength Generalized weakness Poor safety awareness Lack of motivation Short Term Goals: 1) Pt will be Mod (I) UB/LB dressing. 2) Pt will be Mod (I) toilet task. 3) Pt will be Independent grooming. 4) Pt will be SBA bathing. 5) Pt Reynold Index of ADLs score will improve by two points. 6) Pt will be Mod (I) light meal prep task. 7) Pt will be Min A medication management. Sewer Repairer Goals: Return to least restrictive environment-Pt will require increased assist if plans to discharge home, pt resistant to outside assistance and hx of noncompliance Patient Goals: "Get off this oxygen" Rehabilitation Prognosis: Good Barriers to Discharge: Pt's reluctance to utilize recommended adaptive equipment and therapy interventions to increase safety and independence with functional mobility. PLAN: The patient will benefit from skilled occupational therapy services 5 times per week for 2 weeks including: Ther ex ADL training Safety training Ther act IADL training Transfer training Adaptive equip training Bed mobility Energy conservation Thank you for this referral. If you have any questions, concerns, or comments about this report or plan, please contact me at . Hoda Fang MS, OTR/L Occupational Therapist [facility]AH[place]
--- NOTE | 2019-01-09 14:00 | NUR ---
Did not use bed alarm due to daughter being present and patient not showing signs of impulsivity.
[2019-01-09 16:30] VITALS: BP 97/65
[2019-01-10] MEDS: THYROID 60 MG TAB PO SCH (06:22)
[2019-01-10 07:30] VITALS: BP 101/73
[2019-01-10 09:00] VITALS: BP 104/65
[2019-01-10] MEDS: RIVAROXABAN 10 MG TAB PO SCH ×2 (09:03→20:48)
[2019-01-10] MEDS: AMIODARONE 200 MG TAB PO SCH ×2 (09:03→20:48)
[2019-01-10] MEDS: guaiFENesin 600 MG TABCR PO PRN (09:03)
[2019-01-10] MEDS: CETIRIZINE HCL 10 MG TAB PO SCH (09:03)
[2019-01-10] MEDS: FLUTICASONE PROP 0.05% 16 GM SCH (09:03)
[2019-01-10] MEDS: METOPROLOL SUCC XL 25 MG TABCR PO SCH ×2 (09:03→20:48)
--- NOTE | 2019-01-10 10:55 | NUR ---
Occupational Therapy Impression SBA supine to sit with HOB raised. SBA LB dressing. Min A sit<>stands. CGA ambulation 2x10ft with RW. Slow, steady gait. SBA oral care standing sinkfront. UB ther ex HEP initiated. SpO2 WNL on 2L throughout tx. Occupational Therapy Goals 1) Pt will be Mod (I) UB/LB dressing. 2) Pt will be Mod (I) toilet task. 3) Pt will be Independent grooming. 4) Pt will be SBA bathing. 5) Pt Reynold Index of ADLs score will improve by two points. 6) Pt will be Mod (I) light meal prep task. 7) Pt will be Min A medication management. Patient's Goal
--- NOTE | 2019-01-10 11:02 | SPEECH INITIAL EVALUATION ---
INITIAL SPEECH THERAPY EVALUATION REPORT Cognitive Communication Assessment Patient Name: Samuel Izaguirre Date of Evaluation: 01/10/2019 Patient : 38 Clinician: Niesha Fang M.S., [facility]-FIRST LEVEL[facility] Physician: Casi Pizano MD Treatment Dx: mild cognitive linguistic deficits BACKGROUND The patient is a 78-year-old male who recently [facility] following hospitalization at [facility] for mitral valve repair. The pt returned to the [facility] med/surg unit on 01/01/19 with PE and CHF exacerbation. The pt now presents to the [facility] for further rehab. A ST consult was requested to analyze cognitive communicative status due to concern for appropriate decision making capacity, and ability to safely discharge to home environment. Per daughter report, the pt has not been taking medications consistently, cancelled appointments with his primary care physician, refused HH assist, and was not eating regularly. LANGUAGE/COGNITION The [place] Cognitive Assessment (MoCA), Version 7.2 was administered during the pts previous stay on the ECF in November 2018 with the following results: - Total Score (TS): 28/30 = WNL -Cognitive Domains Demonstrating Mild Deficits: verbal fluency, speed of processing -Cognitive Domains Demonstrating Strength: attention, orientation, immediate memory, delayed memory, visuospatial skills, mental abstraction, calculations. The MoCA is a screening tool often utilized to determine the need for further, in-depth cognitive linguistic assessment. It does not adequately evaluate higher-level cognitive functions. Therefore, portions of the Assessment of Language-Related Functional Activities (CHRISTIANO) were administered during todays assessment. CHRISTIANO subtests were paired with informal evaluation procedures. Scores indicate a high probability of independent functioning for tasks that would require the pt to manage finances, solve daily mathematics problems, and address envelopes. Results indicate the pt would benefit from some level assistance with managing medications. Informally, the pt exhibited decreased insight re: events leading up to hospitalization and struggled to generate solutions for avoiding re-hospitalization in the future. Daughter endorses deficits in problem-solving skills with tendency to avoid seeking assistance despite medical necessity. SPEECH: WFL. VOICE: WFL. DYSPHAGIA: WFL. Screened w/ thins. No c/o dysphagia. SUMMARY The pt presents with mild, higher-level cognitive linguistic deficits characterized by impaired problem solving skills, decreased executive functions, deficits in judgement/reasoning, and reduced insight. Relative areas of strength noted in orientation, attention, memory, language, and visuospatial skills. RECOMMENDATIONS 1. ST 3x/wk 2. Home health care 3. Assistance with medication management, transportation, and appointment management at discharge 4. Pt presented with somewhat apathetic demeanor. History leading up to hospitalization suggests general lack of self-care. May benefit from consult with counseling/psych services. PROGNOSIS: Fair. Pt somewhat skeptical regarding ST interventions, decreased insight into deficits, resistance to receiving assistance, but ultimately agreeable to POC. PLAN OF CARE Short Term Goals 1. The patient will independently complete problem solving tasks related to home safety, pharmaceutical management, and medical care to support safe discharge to least restrictive environment. 2. The patient will improve executive function skills via independent participation in planning/prospective reasoning exercises to minimize risk for repeated hospitalizations. Long-Term Goals 1. The patient will demonstrate functional cognitive communication status for safety and maximized independence upon anticipated d/c to home environment w/ appropriate access to home and community resources. Thank you for this referral. Please call [phone] to contact with any questions or concerns. Niesha Fang M.S., CCC-FIRST LEVELER [*] MTDD
--- NOTE | 2019-01-10 11:05 | NUR ---
ST Evaluation Summary Please see full report for detailed information. The pt presents with mild, higher-level cognitive linguistic deficits characterized by impaired functional problem solving skills, decreased executive functions, deficits in judgement/reasoning, and reduced insight. RECOMMENDATIONS 1. ST 2x/wk 2. Assistance with IADLs (medication management, transportation, appointment management) at discharge 3. Pt presented with somewhat apathetic demeanor. History leading up to hospitalization suggests general lack of self-care. May benefit from consult with counseling/psych services. PLAN OF CARE Short Term Goals 1. The patient will independently complete problem solving tasks related to home safety, pharmaceutical management, and medical care to support safe discharge to least restrictive environment. 2. The patient will improve executive function skills via independent participation in planning/prospective reasoning exercises to minimize risk for repeated hospitalizations.
--- NOTE | 2019-01-10 11:19 | ECF History & Physical ---
Transfer Summary (ECF/SWB) Problems: (1) Pulmonary emboli Status: Acute Assessment & Plan: He had been on Xarelto, but apparently had not been taking it appropriately. A CT scan did show emboli in the right lung. Cardiology was contacted and recommended against IVC filter placement. He was placed on Lovenox initially, but is now back on the Xarelto. He will need to restart the loading dose at 15mg twice daily for 21 days. (2) CHF (congestive heart failure) Status: Chronic Assessment & Plan: His BNP is elevated and he has a large right sided pleural effusion. EF is 20-25% (01/04) which is reduced from 35-40% post mitral valve clipping (11/29). He refused IV Lasix because of extreme weight loss during his admission in [place]. He did agree to try Bumex and received doses on 01/07 and 01/08. He did get one dose of metolazone on 01/06. Diuretics have been stopped because his creatinine increased. See below. Cardiology has recommended a repeat echocardiogram once he is better rate controlled with his atrial fibrillation. (3) Chronic atrial fibrillation Status: Chronic Assessment & Plan: He is chronically on metoprolol, but there is concern he wasn't taking it consistently. Since admission, doses have been held secondary to low normal BP. HR 90's-120's. Started on amiodarone with an oral loading dose started on 01/05, per the recommendations of Cardiology. He will need a total of a 12 day load to get almost 10g (8 more days while on ECF) and then will be started on amiodarone 200mg a day. He is also on Xarelto as above. (4) Acute renal insufficiency Status: Acute Assessment & Plan: Creatinine at 1.5 on admission, improved to 0.9; but now 1.4 after diuresis. Stopping Bumex. Recheck tomorrow. (5) Elevated LFTs Status: Acute Assessment & Plan: Possibly due to liver congestion with CHF. Will follow labs. He does admit to heavy alcohol intake in past, but none for 36 years. Have baseline will need to follow with addition of amiodarone. (6) Mitral regurgitation Status: Chronic Assessment & Plan: Due to severely prolapsing mitral valve, now post mitral clipping in Nov 2018. Status is unclear at this time. Cardiology recommend EMIGDIO if he begins having symptoms which could be related to mitral clip thrombosis, otherwise no intervention needed. (7) Hypothyroidism Status: Chronic Assessment & Plan: Resume/continue thyroid extract 60 mg daily. Recheck TSH is still elevated at 13.2 (but this is improved). He will need follow up TSH in a few weeks. Latest Vital Signs Vital Signs Date Time Temp Pulse Resp B/P (MAP) Pulse Ox O2 Delivery O2 Flow Rate FiO2 01/08/19 11:18 97.8 83 20 99/83 (88) 91 Nasal Cannula 4.0 Result Diagram: 01/04/19 0539 01/08/19 1217 Diagnostics Item Value Date Time White Blood Count 7.6 k/uL 01/01/19 1210 White Blood Count 5.7 k/uL 01/02/19 0500 White Blood Count 5.5 k/uL 01/04/19 0539 Hemoglobin 15.1 g/dL 01/01/19 1210 Hemoglobin 13.3 g/dL L 01/02/19 0500 Hemoglobin 14.0 g/dL 01/04/19 0539 Platelet Count 253 K/uL 01/01/19 1210 Platelet Count 181 K/uL 01/02/19 0500 Platelet Count 188 K/uL 01/04/19 0539 Neutrophils (%) (Auto) 79.9 % H 01/01/19 1210 Neutrophils (%) (Auto) 66.2 % 01/02/19 0500 Neutrophils (%) (Auto) 69.0 % 01/04/19 0539 Prothromb Time International Ratio 2.03 01/02/19 0500 Prothromb Time International Ratio 3.64 01/03/19 0527 Sodium Level 134 mmol/L L 01/01/19 1210 Potassium Level 5.2 mmol/L H 01/01/19 1210 Chloride Level 99 mmol/L 01/01/19 1210 Carbon Dioxide Level 19 mmol/L L 01/01/19 1210 Blood Urea Nitrogen 28 mg/dl H 01/01/19 1210 Creatinine 1.50 mg/dl H 01/01/19 1210 Total Bilirubin 3.3 mg/dl H 01/01/19 1210 Aspartate Amino Transf (AST/SGOT) 107 U/L H 01/01/19 1210 Alanine Aminotransferase (ALT/SGPT) 121 U/L H 01/01/19 1210 Alkaline Phosphatase 97 U/L 01/01/19 1210 Troponin I 0.017 ng/ml 01/01/19 1210 B-Type Natriuretic Peptide 1520 pg/ml H 01/01/19 1210 Total Bilirubin 2.1 mg/dl H 01/02/19 0500 Aspartate Amino Transf (AST/SGOT) 110 U/L H 01/02/19 0500 Alanine Aminotransferase (ALT/SGPT) 130 U/L H 01/02/19 0500 Blood Urea Nitrogen 29 mg/dl H 01/02/19 0500 Creatinine 1.20 mg/dl 01/02/19 0500 Potassium Level 4.2 mmol/L 01/04/19 0539 Blood Urea Nitrogen 31 mg/dl H 01/04/19 0539 Creatinine 0.90 mg/dl 01/04/19 0539 Blood Urea Nitrogen 45 mg/dl H 01/07/19 0534 Creatinine 1.30 mg/dl H 01/07/19 0534 Blood Urea Nitrogen 49 mg/dl H 01/08/19 0531 Creatinine 1.50 mg/dl H 01/08/19 0531 Blood Urea Nitrogen 52 mg/dl H 01/08/19 1217 Creatinine 1.40 mg/dl H 01/08/19 1217 Potassium Level 4.0 mmol/L 01/08/19 1217 Potassium Level 3.7 mmol/L 01/08/19 0531 Potassium Level 5.2 mmol/L H 01/07/19 0534 Sodium Level 132 mmol/L L 01/04/19 0539 Sodium Level 129 mmol/L L 01/07/19 0534 Sodium Level 131 mmol/L L 01/08/19 0531 Sodium Level 133 mmol/L L 01/08/19 1217 Total Bilirubin 2.3 mg/dl H 01/04/19 0539 Aspartate Amino Transf (AST/SGOT) 94 U/L H 01/04/19 0539 Alanine Aminotransferase (ALT/SGPT) 146 U/L H 01/04/19 0539 B-Type Natriuretic Peptide 1190 pg/ml H 01/02/19 0500 Thyroid Stimulating Hormone (TSH) 13.20 uIU/ml H 01/02/19 0500 Urine Hyaline Casts Many /LPF H 01/02/19 0000 Urine RBC 4 /HPF 01/02/19 0000 Urine WBC 1 /HPF 01/02/19 0000 D-Dimer Quantitative (PE/DVT) 2.38 ug/ml H 01/01/19 1210 01/04/19 Echo - EF 20-25%, LA is severely enlarged, mitral clip is in appropriate position and stable, severe pulmonary hypertension, 01/01/19 Chest CTA - 1. Positive pulmonary emboli. There is emboli seen in the branch of the right lower and middle pulmonary arteries extending into the segmental and subsegmental branches of both the right middle lobe and right l ower lobe pulmonary arteries. No other discrete emboli is identified. There is some artifact seen in the main pulmonary arteries without discrete well-defined central pulmonary artery aneurysm. 2. Moderate right pleural effusion with associated atelectasis. Minimal left pleural effusion with atelectasis. 3. Cardiomegaly. There is reflux contrast from the right atrium into the IVC and hepatic veins. This nonspecific but could be due to cardiac decompensation. 4. 5 mm nodule in the left upper lobe. This too small characterize and could be postinflammatory. Suggest follow-up per Fleischner guidelines described below. 01/01/19 CXR - Worsening right pleural effusion. Probable right base infiltrate. Hospital Course/Plan Going to F for continued therapy. Condition: Improved Disposition: SNF/NH Inpatient Medications See med rec Treatment Goals and Plan Patient requires halfway for End of Life Care/Comfort Care and is ready for admission to Extended Care. Any change in condition is described below. Services Required: PT, OT Copies To 1: QAMAR SANCHEZ MD; WHIT PATTERSON ; Problem Qualifiers (1) Pulmonary emboli: Pulmonary embolism type: other Chronicity: acute Acute cor pulmonale presence: without acute cor pulmonale Qualified Codes: I26.99 - Other pulmonary embolism without acute cor pulmonale (2) CHF (congestive heart failure): Heart failure type: systolic Heart failure chronicity: acute Qualified Codes: I50.21 - Acute systolic (congestive) heart failure PATRICIO PRIDE MD Jan 08, 2019 15:51 <Electronically signed by PATRICIO PRIDE MD> D/ 155 155 50 PETELARS/LP CC: QAMAR SANCHEZ MD; WH[facility] PATTER[facility]
--- NOTE | 2019-01-10 14:53 | NUR ---
Did not use bed alarm today. Daughter/visitors were here most of the day, and patient has not shown signs up impulsivity.
[2019-01-10 15:28] VITALS: BP 98/67
--- NOTE | 2019-01-10 15:35 | NUR ---
Physical Therapy Impression Pt required approximately 5 minutes to ambulate from his chair into the bathroom, a distance of about 10' using the RW and CGA. Pt then declined further activity which this PT agrees with. Pt demonstrating decreased tolerance to activity compared to yesterday's PT session. Physical Therapy Goals 1. Mod I bed mobility. 2. Mod I transfers from a variety of surfaces. 3. SBA car transfer. 4. Mod I gait x 150' with appropriate assistive device. 5. Ascend/descend 4 stairs with 1 rail and SBA. 6. Independent O2 tubing management with functional mobility. 7. Mod I picking up an object off the floor. Patient's Goals
[2019-01-11] MEDS: THYROID 60 MG TAB PO SCH (06:31)
[2019-01-11 07:30] VITALS: BP 100/68
[2019-01-11] MEDS: guaiFENesin 600 MG TABCR PO PRN (08:56)
[2019-01-11] MEDS: AMIODARONE 200 MG TAB PO SCH ×2 (08:57→20:58)
[2019-01-11] MEDS: METOPROLOL SUCC XL 25 MG TABCR PO SCH ×2 (08:57→20:59)
[2019-01-11] MEDS: CETIRIZINE HCL 10 MG TAB PO SCH (08:57)
[2019-01-11] MEDS: RIVAROXABAN 10 MG TAB PO SCH ×2 (08:59→20:59)
[2019-01-11] MEDS: FLUTICASONE PROP 0.05% 16 GM SCH (09:00)
[2019-01-11 15:17] VITALS: BP 111/74
--- NOTE | 2019-01-11 15:55 | Miscellaneous Provider Note ---
Miscellaneous Provider Note Note Mr. Izaguirre has been less tolerant of his activities. He has been more dyspneic and requiring longer times for recovery. His oxygen requirement has been unchanged at 2L vis nasal cannula. His BPs have been in 100-110 systolic range, which is at his baseline. No fever noted. His HR has been in 60-72 range past few days. His exam is notable for diminished breath sounds at both bases. Cardiac exam is irregular with loud systolic murmur and rate ~60. He has 2+ lower extremity edema. Will check labs, CXR, and EKG. I suspect he probably has enlarging pleural effusions. May need to discuss possible restarting his diuretic again. JUN DEL VALLE MD Jan 11, 2019 15:54
--- NOTE | 2019-01-11 15:59 | EKG ---
FACILITY: [facility] - [place], [place] PATIENT NAME: BENEDICTO CRISTOBAL : [id number] MR: [id number] V: [id number] EXAM DATE: ORDERING PHYSICIAN: JUN DEL VALLE TECHNOLOGIST: SUNSHINE Zambrano Reason : SOB Blood Pressure : / mmHG Vent. Rate : 077 BPM Atrial Rate : 077 BPM P-R Int : 000 ms QRS Dur : 170 ms QT Int : 492 ms P-R-T Axes : 228 137 049 degrees QTc Int : 556 ms Atrial fibrillation with controlled ventricular response Right bundle branch block Abnormal ECG Confirmed by JUN DEL VALLE ([id number]) on 01/11/2019 4:32:24 PM Referred By: ELIGIO Confirmed By:JUN DEL VALLE
[2019-01-11 16:32] LABS: PLATELET COUNT, AUTOMATED 148 K/uL (150-450)
--- NOTE | 2019-01-11 17:42 | RADIOLOGY IMAGING REPORT ---
FACILITY: [facility] - [place] PATIENT NAME: Samuel Izaguirre : 1940 MR: [id number] V: [id number] EXAM DATE: ORDERING PHYSICIAN: JUN DEL VALLE TECHNOLOGIST: Location: [facility] Patient: Samuel Izaguirre : 1940 Visit/Account:[id number] Date of Sevice: 01/11/2019 Examination: CHEST SINGLE AP Comparison: 01/01/2019 and earlier. History: Dyspnea. Findings: Large right pleural effusion is stable versus slightly increased in size. Right lung base v olume loss versus consolidation as before. Trace left pleural effusion. No pneumothorax or definite e vidence of pulmonary edema. Visualized portions of the mildly enlarged cardiac and hilar contour appe ar unchanged. Multifocal degenerative change. IMPRESSION: 1. Large right pleural effusion is stable versus slightly increased in size since 01/01/2019. 2. Right lung base volume loss versus consolidation as before. 3. Trace left pleural effusion. Report Dictated By: Kelvin Manning MD at 01/11/2019 5:36 PM Report E-Signed By: Kelvin Manning MD at 01/11/2019 5:38 PM WSN:[id number]
[2019-01-11] MEDS ORDERED: POTASSIUM CHL 10 MEQ TABCR PO ONE (18:40)
[2019-01-11 20:56] VITALS: BP 103/71
[2019-01-12] MEDS: THYROID 60 MG TAB PO SCH (05:26)
[2019-01-12 07:05] VITALS: BP 103/73
[2019-01-12] MEDS: RIVAROXABAN 10 MG TAB PO SCH ×2 (08:26→21:13)
[2019-01-12] MEDS: guaiFENesin 600 MG TABCR PO PRN (08:26)
[2019-01-12] MEDS: FLUTICASONE PROP 0.05% 16 GM SCH (08:26)
[2019-01-12] MEDS: CETIRIZINE HCL 10 MG TAB PO SCH (08:26)
[2019-01-12] MEDS: AMIODARONE 200 MG TAB PO SCH ×2 (08:26→21:13)
[2019-01-12] MEDS: POTASSIUM CHL 10 MEQ TABCR PO SCH ×2 (08:26→17:36)
[2019-01-12] MEDS: METOPROLOL SUCC XL 25 MG TABCR PO SCH ×2 (08:28→20:26)
[2019-01-12] MEDS: FUROSEMIDE 20 MG TAB PO SCH (08:29)
[2019-01-12] MEDS ORDERED: MORPHINE 2 MG/ML SYR IVP PRN (09:50)
--- NOTE | 2019-01-12 10:06 | NUR ---
pt c/o shortness of breath. physician was notified and received an order for morphine. pt refusing. pt tachypneic at 22-24 breaths per minute. no other obvious signs of distress. oxygen saturation is 96 percent on 2.5L. pt denies chest pain. states "there's something blocking air from my nose to my lungs." states breathing feels "damn bad." pt is upright in bed and was instructed to use IS. Addendum: 01/12/19 at 1009 by CARRIE CUELLAR RN will continue to monitor cardio-respiratory status.
--- NOTE | 2019-01-12 10:37 | NUR ---
order for 20mEq of potassium scheduled for 0 on 01/11 not given. physician notified, potassium 3.4. provider not concerned. no further increase to scheduled BID potassium for 01/12.
--- NOTE | 2019-01-12 12:40 | NUR ---
pt refusing to get up and ambulate to use bathroom. aid reported that the pt said, "just leave me alone and let me pee." pt expressed fear of not being able to breathe with any exertion.
--- NOTE | 2019-01-12 12:43 | NUR ---
no bed alarm today; pt calling appropriately.
[2019-01-12 15:00] VITALS: BP 98/60
--- NOTE | 2019-01-12 17:37 | NUR ---
pt refusing to ambulate to chair for supper due to his fear of not being able to breathe. reassured and encouraged pt he would be safe w/ my assistance. pt requested to stay in bed for meal.
[2019-01-12 21:00] VITALS: BP 96/60
[2019-01-13] MEDS: THYROID 60 MG TAB PO SCH (05:14)
[2019-01-13 07:20] VITALS: BP 111/69
[2019-01-13] MEDS: FLUTICASONE PROP 0.05% 16 GM SCH (09:02)
[2019-01-13] MEDS: FUROSEMIDE 20 MG TAB PO SCH ×2 (09:02→09:24)
[2019-01-13] MEDS: RIVAROXABAN 10 MG TAB PO SCH ×2 (09:02→21:08)
[2019-01-13] MEDS: POTASSIUM CHL 10 MEQ TABCR PO SCH ×2 (09:02→09:25)
[2019-01-13] MEDS: CETIRIZINE HCL 10 MG TAB PO SCH (09:02)
[2019-01-13] MEDS: METOPROLOL SUCC XL 25 MG TABCR PO SCH ×3 (09:03→21:08)
[2019-01-13] MEDS: AMIODARONE 200 MG TAB PO SCH ×2 (09:25→21:08)
--- NOTE | 2019-01-13 10:10 | NUR ---
Rapid response called for Mr Izaguirre, patient c/o of increase SOB, increased numbness to left hand, patient states he feels like he is fading fast.BP 111/69 HR rate rapid irreg, team arrived iv started per nurse with Rapid response to rt ac, EkG ordered shows atria Fib cardiac ultra sound ordered, 1030 BP 103/64 patient continues to have SOB 02 sats 95%. 1040 BP 91/58 patient taken per w/c for a CT very weak takes two staff to transfer to chair. 1230 cardiac ultra being done at the bedside.
--- NOTE | 2019-01-13 10:16 | NUR ---
ST Encounter Pt limited by fatigue and shortness of breath this date. RN aware, monitoring BP. Pt completed problem solving tasks related to pharmaceutical management with cues for error awareness and attention to detail. Focus placed on identification of strategies to minimize medication errors, techniques to improve organization of medication list, and discussion re: contributing factors related to prior med mismanagement. Participation was often passive secondary to level of fatigue. Mild, higher-level cognitive deficits persist. ST will cont to support deficits in problem-solving, executive functions, and insight for safe transition to d/c environment. Goals: 1. The patient will independently complete problem solving tasks related to home safety, pharmaceutical management, and medical care to support safe discharge to least restrictive environment. 2. The patient will improve executive function skills via independent participation in planning/prospective reasoning exercises to minimize risk for repeated hospitalizations.
--- NOTE | 2019-01-13 10:18 | EKG ---
FACILITY: [facility] - [place], [place] PATIENT NAME: BENEDICTO CRISTOBAL : [id number] MR: [id number] V: [id number] EXAM DATE: ORDERING PHYSICIAN: WHITLEY GUERRERO TECHNOLOGIST: RUBEN Zambrano Reason : SOB Blood Pressure : / mmHG Vent. Rate : 083 BPM Atrial Rate : 220 BPM P-R Int : 000 ms QRS Dur : 164 ms QT Int : 468 ms P-R-T Axes : 000 142 063 degrees QTc Int : 549 ms Suspect arm lead reversal, interpretation assumes no reversal Atrial fibrillation Right bundle branch block Lateral infarct , age undetermined Abnormal ECG When compared with ECG of 11-JAN-2019 15:52, No significant change was found Confirmed by TALA FULLER ([id number]) on 01/13/2019 10:41:40 AM Referred By: YOLANDA Confirmed By:TALA FULLER
--- NOTE | 2019-01-13 10:27 | NUR ---
Physical Therapy Impression Pt with recent [place] called with multiple orders written for provider for evaluation. Will hold therapy until medically evaluated and appropriate for PT. Physical Therapy Goals 1. Mod I bed mobility. 2. Mod I transfers from a variety of surfaces. 3. SBA car transfer. 4. Mod I gait x 150' with appropriate assistive device. 5. Ascend/descend 4 stairs with 1 rail and SBA. 6. Independent O2 tubing management with functional mobility. 7. Mod I picking up an object off the floor. Patient's Goals
[2019-01-13 10:35] LABS: PLATELET COUNT, AUTOMATED 158 K/uL (150-450)
[2019-01-13] MEDS ORDERED: IOPAMIDOL 76% 75 ML INFUS BTL 75 ML ONE (10:42)
[2019-01-13] MEDS ORDERED: NS(*) 0.9% 50 ML BAG 50 ML ONE (10:43)
--- NOTE | 2019-01-13 11:34 | NUR ---
Contacted Acacia to update on medical conditions, is aware of code status. States she will support if he agrees to be a DNR/DNI. Agrees that her father's medical condition continues to decline.
--- NOTE | 2019-01-13 11:42 | Hospitalist Progress Note ---
Subjective Progress Notes Subjective A rapid response was called. Patient had complaints of increased SOB. He reports he felt "impending doom". His vital signs were normal for patient. He denies chest pain. He did have some weakness and tingling sensations which resolved quickly per patient. Patient Complains of: Cardiovascular: No: Chest Pain Respiratory: Shortness of Breath Physical Exam Vital Signs Date Time Temp Pulse Resp B/P (MAP) Pulse Ox O2 Delivery O2 Flow Rate FiO2 01/13/19 07:20 97.7 77 111/69 (83) 94 Nasal Cannula 01/13/19 01:54 2.5 01/12/19 15:00 18 Intake and Output 01/13/19 07:00 Intake Total 886 ml Output Total 1000 ml Balance -114 ml Intake Oral 886 ml Output Urine Total 1000 ml # Voids 7 # Bowel Movements 1 General Appearance: Alert, Awake, No Acute Distress, Afebrile Neuro: No Gross deficits Cardiovascular: Other (rate is irregular) Respiratory: No Respiratory Distress, Clear to Auscultation GI: Soft and Non-Tender Extremities: Warm, Perfused, Edema (3+pitting edema) Psych: Alert & Oriented X3, Appropriate Mood & Affect Result Diagram: 01/13/19 1027 01/13/19 1027 Assessment and Plan Problems: (1) Shortness of breath Status: Chronic Assessment & Plan: Acute on chronic. He will get labs performed to include troponin, BNP. He will get EKG. Will order echo to assess mitral clip. He will get CTA to assess PE status. Continue to follow. WHITLEY GUERRERO Jan 13, 2019 11:42
--- NOTE | 2019-01-13 11:52 | RADIOLOGY IMAGING REPORT ---
FACILITY: [facility] PATIENT NAME: Samuel Izaguirre : 1940 MR: [id number] V: [id number] EXAM DATE: ORDERING PHYSICIAN: WHITLEY GUERRERO TECHNOLOGIST: Location[place] [facility] [place] Patient: Samuel Izaguirre : 1940 Visit/Account:[id number] Date of Sevice: 01/13/2019 CT CTA CHEST W CON HISTORY: SOB TECHNIQUE: CTA chest with intravenous contrast attention to pulmonary arteries. Sagittal, coronal a nd slab 3D MIP coronal reconstructed images were also created for further evaluation and interpretati on. One of the following dose optimization techniques was utilized in the performance of this exam: Autom ated exposure control; adjustment of the mA and/or kV according to the patient's size; or use of an i terative reconstruction technique. Specific details can be referenced in the facility's radiology CT exam operational policy. CONTRAST: 75 mL Isovue-370. COMPARISON: CT dated 01/01/2019. FINDINGS: Heart/vessels: Suboptimal visualization of the pulmonary arteries secondary to bolus timing. There i s moderate four-chamber cardiac enlargement with possible right heart dysfunction. No central pulmona ry embolus identified within the main pulmonary artery Mediastinum: Negative. Lymph nodes: Numerous nonspecific subcentimeter mediastinal and hilar lymph nodes. Lungs/pleura: Moderate to large right pleural effusion with moderate/advanced atelectasis of the rig ht lower lobe and mild/moderate atelectasis of the right middle lobe. Small left pleural effusion wit h mild atelectasis of the left lower lobe. Effusions have increased in size since prior exam. Hazy he terogeneous groundglass throughout the lungs with areas of interlobular septal thickening, most alfonzo tible with pulmonary edema. Subtle areas of more nodular groundglass within the left upper and left l ower lobe which are likely related to pulmonary edema although cannot completely exclude infectious/i nflammatory process. Visualized upper abdomen: Reflux of contrast into mildly prominent IVC and hepatic veins suggestive of right heart dysfunction. 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 Small volume ascites. Bones/soft tissues: Advanced degenerative changes of the bilateral shoulders. No acute findings. IMPRESSION: 1. Essentially nondiagnostic exam for pulmonary embolus. Only the central-most pulmonary arterial vas culature is opacified secondary to contrast bolus timing. The timing is likely off related to cardiom egaly and right heart dysfunction. 2. Moderate to large right and small left pleural effusions, increased since prior exam. 3. Findings within the lungs suggestive of pulmonary edema. There are superimposed nodular groundglas s opacities within the left lung which are still favored related to pulmonary edema however cannot co mpletely exclude superimposed infectious/inflammatory process. 4. Additional incidental/chronic findings, as above. Report Dictated By: Karl Felix MD at 01/13/2019 11:38 AM Report E-Signed By: Karl Felix MD at 01/13/2019 11:47 AM WSN:[id number]
[2019-01-13 19:48] VITALS: BP 112/73
[2019-01-14] MEDS: THYROID 60 MG TAB PO SCH (05:55)
[2019-01-14 07:30] VITALS: BP 95/58
[2019-01-14] MEDS: POTASSIUM CHL 10 MEQ TABCR PO SCH ×2 (08:00→17:00)
[2019-01-14] MEDS: CETIRIZINE HCL 10 MG TAB PO SCH (08:55)
[2019-01-14] MEDS: AMIODARONE 200 MG TAB PO SCH ×2 (08:55→20:35)
[2019-01-14] MEDS: RIVAROXABAN 10 MG TAB PO SCH ×2 (08:57→20:35)
[2019-01-14] MEDS: FLUTICASONE PROP 0.05% 16 GM SCH (08:58)
[2019-01-14] MEDS: FUROSEMIDE 20 MG TAB PO SCH (09:00)
[2019-01-14] MEDS: METOPROLOL SUCC XL 25 MG TABCR PO SCH ×2 (09:00→20:33)
--- NOTE | 2019-01-14 09:56 | NUR ---
Physical Therapy Impression Pt requires encouragement to participate in PT session today. RN reports that pt is medically appropriate to participate today. SBA for bed mobility with HOB raised. Min-modA to rise to standing position with RW. Ambulation x10' with RW, pt with poor tolerance to functional mobility, requesting seated rest break. The patient may not be safe to d/c home independently, continue with POC. Physical Therapy Goals 1. Mod I bed mobility. 2. Mod I transfers from a variety of surfaces. 3. SBA car transfer. 4. Mod I gait x 150' with appropriate assistive device. 5. Ascend/descend 4 stairs with 1 rail and SBA. 6. Independent O2 tubing management with functional mobility. 7. Mod I picking up an object off the floor. Patient's Goals
--- NOTE | 2019-01-14 10:46 | Medical Nutrition Therapy ---
Nutrition Anthropometrics Height (Inches): 77.00 Height (Calculated Centimeters: 195.622086 Weight (Pounds): 201 Weight (Calculated Kilograms): 91.342 BMI: 23.6 Ja Nutrition Score: Adequate Ja Nutrition Risk Score: 17 Dietary Referral Nutrition Risk Factors: Unplanned Loss >10lbs Nutrition Risk Comment: Lost 32 pounds in 9 days when put on Lasix Physical Findings Physical Appearance: Skin Appearance Skin Appearance: Edema Edema Location Modifier: Both Edema Location: Lower Extremity Type of Edema: Degree of Edema: 2+ Gastrointestinal Symptoms GI Symtoms: Appetite Changes Tube Present: Bowel Sounds: Recent Bowel Pattern: Stool Characteristics: Nutritional Diagnosis Nutritional Risk Acuity 3: Fair Appetite, Weight Loss (pt reports wt loss when put on lasix) Past Medical History: Hx atrial fibrillation, hypothyroidism, anemia, hypertension, mitral regurg, renal insuffiency, CHF Nutritional Acuity: 3-Mild Energy Requirement: 2287 (MSJ X 1.1 SF) Protein Requirement: 72 (.8gm/kg) Fluid Requirement: 2287 (1ml/kcal) Diet Type: Diet as Tolerated ALBINO/REG Nutrition Intervention: Cont diet as ordered, Encourage intake Food Likes: breakfast- 7am, lunch- 12pm, dinner- 530pm Additional Diet Restrictions: BREAKFAST AT 7:00, LUNCH AT 12:00 Nutrition Monitoring & Eval Nutrition Goals: Eat 50-100% Meal Nutrition Follow-Up: Fair Intake Nutrition Monitorin/25: Pt is consuming 25-75% of meal on average. -CRYS RD Patient Assessment Time: [address] Assessment Type: RD Assessment Patient Nutrition Acuity: 3-Mild Follow Up Date: Jan 17, 2019 Nutritional Comment: 01/09 Pt admitted s/p PE. pt has hx of CHF and renal insuffiency. BUN cont elelvated at 51, creatinine elevated at 1.3. Will encourage adequate but not excessive protein. Pt is on regular diet Ate 75% in ECF. Alb 2.7. Pt has 3+ edema BLE. Anticipate wt loss when edema resolved. Pt may benefit from CHF diet. Will cont to monitor and encourage intake. BK 01/13: Pt has an elevated BUN (37). Pt is consuming on average 25-75% of ALBINO diet. Pt is refusing snacks when provided per nurses report. Weight up 3.6% from admission. -HIRAL GANT Jan 13, 2019 08:12
--- NOTE | 2019-01-14 13:48 | NUR ---
Occupational Therapy Impression Pt. required physical assistance to manage O2 tubing while in the bathroom completing toilet hygiene activities. Pt. became agitated with O2 when O2 moved O2 tubing from between FWW wheels to ensure safety. Pt. would benefit from care services upon d/c to home. Continue with POC. Occupational Therapy Goals 1) Pt will be Mod (I) UB/LB dressing. 2) Pt will be Mod (I) toilet task. 3) Pt will be Independent grooming. 4) Pt will be SBA bathing. 5) Pt Reynold Index of ADLs score will improve by two points. 6) Pt will be Mod (I) light meal prep task. 7) Pt will be Min A medication management. Patient's Goal
[2019-01-14 15:35] VITALS: BP 101/75
[2019-01-15] MEDS: THYROID 60 MG TAB PO SCH (05:26)
[2019-01-15 08:01] VITALS: BP 101/56
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
[2019-01-15] MEDS: METOPROLOL SUCC XL 25 MG TABCR PO SCH ×2 (09:05→20:37)
[2019-01-15] MEDS: FLUTICASONE PROP 0.05% 16 GM SCH (09:05)
[2019-01-15] MEDS: AMIODARONE 200 MG TAB PO SCH ×2 (09:06→20:37)
[2019-01-15] MEDS: CETIRIZINE HCL 10 MG TAB PO SCH (09:06)
[2019-01-15] MEDS: POTASSIUM CHL 10 MEQ TABCR PO SCH ×2 (09:06→17:00)
[2019-01-15] MEDS: RIVAROXABAN 10 MG TAB PO SCH ×2 (09:06→20:37)
[2019-01-15] MEDS: FUROSEMIDE 20 MG TAB PO SCH (09:07)
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
--- NOTE | 2019-01-15 14:46 | NUR ---
Occupational Therapy Impression Pt. performed minimal UE strengthening exercises with 4.5# dowel while reclined in bed and Energy conservation/ Work simplification education. Pt. refusing most OT activities and appears not interested in participating in therapy. Continue with POC. Occupational Therapy Goals 1) Pt will be Mod (I) UB/LB dressing. 2) Pt will be Mod (I) toilet task. 3) Pt will be Independent grooming. 4) Pt will be SBA bathing. 5) Pt Reynold Index of ADLs score will improve by two points. 6) Pt will be Mod (I) light meal prep task. 7) Pt will be Min A medication management. Patient's Goal
--- NOTE | 2019-01-15 15:52 | Hospitalist Progress Note ---
Subjective Progress Notes Subjective The patient becomes short of breath with exertion. Physical Exam Vital Signs Date Time Temp Pulse Resp B/P (MAP) Pulse Ox O2 Delivery O2 Flow Rate FiO2 01/15/19 10:00 93 Nasal Cannula 2.5 01/15/19 08:54 68 01/15/19 08:01 96.4 20 101/56 (71) Intake and Output 01/15/19 07:00 Intake Total 1250 ml Output Total 525 ml Balance 725 ml Intake Oral 1250 ml Output Urine Total 525 ml # Voids 4 # Bowel Movements 2 General Appearance: Alert, Awake, No Acute Distress Neuro: No Gross deficits Eyes: PERRLA Cardiovascular: Other (Irregularly irregular.) Respiratory: Other (Decreased BS both bases, R>L. Some wheezing with forced expiration only.) GI: Soft and Non-Tender Extremities: Warm, Perfused, Edema (1+) Integumentary: Scaly / Dry Skin, Other (Venous stasis changes bilaterally.) Psych: Appropriate Mood & Affect Result Diagram: 01/13/19 1027 01/13/19 1027 Assessment and Plan Problems: (1) CHF (congestive heart failure) Status: Chronic Assessment & Plan: Recent echo from 01/13 shows EF of 40-45%. BNP on 01/13 was elevated at 1400. The patient has known pHTN as well which is likely exacerbated by recent pulmonary embolism. He is on Lasix 20mg daily. He is having dyspnea on exertion which is likely multifactorial (CHF, PE, pHTN, deconditioning, recent pneumonia). He is also in atrial fibrillation. (2) Elevated LFTs Status: Acute Assessment & Plan: Likely due to passive hepatic congestion. Improving. Continue to monitor periodically. (3) Chronic atrial fibrillation Status: Chronic Assessment & Plan: On Xarelto 15mg bid currently. (4) Mitral regurgitation Status: Chronic Assessment & Plan: Improved s/p MitraClip procedure. (5) History of mitral valve repair Status: Resolved Assessment & Plan: As above. (6) Pulmonary emboli Status: Acute Assessment & Plan: The patient was not taking Xarelto at home. Apparently only 4-5 tablets used in about 15 days. He is now back on the loading dose of Xarelto at 15mg bid. (7) Hypothyroidism Status: Chronic Assessment & Plan: Continue thyroid replacement medication. (8) Moderate to severe pulmonary hypertension Status: Chronic Assessment & Plan: His LE edema is improved. Continue oxygen and Lasix. Time Spent on Plan of Care: < 30 min JIMMY DEL VALLE MD Jan 15, 2019 15:52
[2019-01-15 16:25] VITALS: BP 95/70
[2019-01-16] MEDS: THYROID 60 MG TAB PO SCH (05:38)
[2019-01-16] MEDS: FUROSEMIDE 20 MG TAB PO SCH (09:06)
[2019-01-16] MEDS: POTASSIUM CHL 10 MEQ TABCR PO SCH ×2 (09:07→17:10)
[2019-01-16] MEDS: CETIRIZINE HCL 10 MG TAB PO SCH (09:07)
[2019-01-16] MEDS: AMIODARONE 200 MG TAB PO SCH (09:07)
[2019-01-16] MEDS: METOPROLOL SUCC XL 25 MG TABCR PO SCH ×2 (09:08→21:13)
[2019-01-16] MEDS: FLUTICASONE PROP 0.05% 16 GM SCH (09:08)
[2019-01-16] MEDS: RIVAROXABAN 10 MG TAB PO SCH ×2 (09:09→21:11)
--- NOTE | 2019-01-16 10:31 | NUR ---
ST Encounter Pt limited by reported fatigue and frustration with ongoing passive participation in ST interventions. Continued to address deficits in problem solving via pharmaceutical management tasks and discussion re: contributing factors related to repeated hospitalizations. Pt either appeared disinterested or declined participation in majority of activities. Ultimately requested to cease activity. ST will cont to support deficits in problem-solving, executive functions, and insight for safe transition to d/c environment. Recommend continued HH involvement for completion of IADLs (including med management) at discharge. Goals: 1. The patient will independently complete problem solving tasks related to home safety, pharmaceutical management, and medical care to support safe discharge to least restrictive environment. 2. The patient will improve executive function skills via independent participation in planning/prospective reasoning exercises to minimize risk for repeated hospitalizations.
--- NOTE | 2019-01-16 10:40 | NUR ---
Notified resident and daughter, Acacia that insurance will not authorize any further skilled services past 01/21 by myself and KAREN Arevalo. Resident wanted to rest and said he would talk about it later. Acacia called back and asked the feasibility of assisted living, which would be their first choice if her dad would agree. Second choice is home with her to [place] for a few weeks. Darwin Boswell notified and conversation will be held this afternoon to present options to the resident.
--- NOTE | 2019-01-16 12:37 | NUR ---
Physical Therapy Impression Pt agreeable to ambulate to BR in order for PT to change bedding to make pt more comfortable, and then later was agreeable to address TUG test while up. After toileting and managing brief indep, pt completed TUG test in 56 seconds. Pt requesting to remain seated in lower chair at foot of bed, as fan is making the room cooler in this location. Pt was provided with a push button call light within reach. Physical Therapy Goals 1. Mod I bed mobility. 2. Mod I transfers from a variety of surfaces. 3. SBA car transfer. 4. Mod I gait x 150' with appropriate assistive device. 5. Ascend/descend 4 stairs with 1 rail and SBA. 6. Independent O2 tubing management with functional mobility. 7. Mod I picking up an object off the floor. Patient's Goals
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
[2019-01-16 16:50] VITALS: BP 95/73
[2019-01-17] MEDS: THYROID 60 MG TAB PO SCH (05:55)
[2019-01-17 07:30] VITALS: BP 125/65
[2019-01-17] MEDS: FLUTICASONE PROP 0.05% 16 GM SCH (09:06)
[2019-01-17] MEDS: CETIRIZINE HCL 10 MG TAB PO SCH (09:07)
[2019-01-17] MEDS: AMIODARONE 200 MG TAB PO SCH (09:07)
[2019-01-17] MEDS: POTASSIUM CHL 10 MEQ TABCR PO SCH (09:07)
[2019-01-17] MEDS: FUROSEMIDE 20 MG TAB PO SCH (09:07)
[2019-01-17] MEDS: METOPROLOL SUCC XL 25 MG TABCR PO SCH ×2 (09:08→21:52)
[2019-01-17] MEDS: RIVAROXABAN 10 MG TAB PO SCH ×2 (09:08→21:52)
--- NOTE | 2019-01-17 13:29 | NUR ---
Physical Therapy Impression Pt seen at scheduled time (per Pt request). Per daughter's request, discussed use of 4 wheeled walker to transport oxygen tank during ambulation and demonstrated technique. Pt declined trying to use 4 wheeled walker. Pt declined any activity due to having to go to the bathroom frequently. Utilized motivational interviewing and reinforcement of only 3 PT session remaining before DC (due to insurance coverage). Pt continued to decline participation and requested this PT return at 1:30 to walk with "walking sticks". Physical Therapy Goals 1. Mod I bed mobility. 2. Mod I transfers from a variety of surfaces. 3. SBA car transfer. 4. Mod I gait x 150' with appropriate assistive device. 5. Ascend/descend 4 stairs with 1 rail and SBA. 6. Independent O2 tubing management with functional mobility. 7. Mod I picking up an object off the floor. Patient's Goals
--- NOTE | 2019-01-17 14:25 | NUR ---
Occupational Therapy Impression Pt. stating that he would use "walking sticks" while in the community. PT/OT simulated community activity with use of walking sticks and portable concentrator in back pack. Pt. stood at EOB, stated he was short of breath and needed to sit back down. Pt. agreeable to not leaving home upon d/c and willing to accept more help- ie. Meals on Wheels. Pt. then choose to ambulate to bathroom with use of FWW (instead of walking sticks). OT discussed with pt. that his SOB may be attributed to feeling anxious, as his O2 saturations were above 88% when accessed on 4 occasions during therapy session. OT contacted social service manager to provide pt. with MOW information and also contacted daughter, Acacia to discuss therapy session. Acacia was very relieved that pt. agreeable to MOW. Continue with POC. Occupational Therapy Goals 1) Pt will be Mod (I) UB/LB dressing. 2) Pt will be Mod (I) toilet task. 3) Pt will be Independent grooming. 4) Pt will be SBA bathing. 5) Pt Reynold Index of ADLs score will improve by two points. 6) Pt will be Mod (I) light meal prep task. 7) Pt will be Min A medication management. Patient's Goal
--- NOTE | 2019-01-17 14:49 | NUR ---
Physical Therapy Impression Pt initially attempted to use his walking sticks to ambulate to the bathroom, however, reported SOB and requested to use RW. Pt requires great effort to stand, but is able to with SBA. Pt's SO2 98-88% on 2.5L O2. Physical Therapy Goals 1. Mod I bed mobility. 2. Mod I transfers from a variety of surfaces. 3. SBA car transfer. 4. Mod I gait x 150' with appropriate assistive device. 5. Ascend/descend 4 stairs with 1 rail and SBA. 6. Independent O2 tubing management with functional mobility. 7. Mod I picking up an object off the floor. Patient's Goals
--- NOTE | 2019-01-17 15:15 | Medical Nutrition Therapy ---
Nutrition Anthropometrics Height (Inches): 77.00 Height (Calculated Centimeters: [phone] Weight (Pounds): 197 Weight (Calculated Kilograms): 89.358 BMI: 23.6 Ja Nutrition Score: Probably Inadequate Ja Nutrition Risk Score: 16 Dietary Referral Nutrition Risk Factors: Unplanned Loss >10lbs Nutrition Risk Comment: Lost 32 pounds in 9 days when put on Lasix Physical Findings Physical Appearance: Skin Appearance Skin Appearance: Edema Edema Location Modifier: Both Edema Location: Lower Extremity Type of Edema: Degree of Edema: 2+ Gastrointestinal Symptoms GI Symtoms: Appetite Changes Tube Present: Bowel Sounds: Recent Bowel Pattern: Stool Characteristics: Nutritional Diagnosis Nutritional Risk Acuity 3: Fair Appetite, Weight Loss (pt reports wt loss when put on lasix) Past Medical History: Hx atrial fibrillation, hypothyroidism, anemia, hypertension, mitral regurg, renal insuffiency, CHF Nutritional Acuity: 3-Mild Energy Requirement: 2287 (MSJ X 1.1 SF) Protein Requirement: 72 (.8gm/kg) Fluid Requirement: 2287 (1ml/kcal) Diet Type: Diet as Tolerated ALBINO/REG Nutrition Intervention: Cont diet as ordered, Encourage intake Food Likes: breakfast- 7am, lunch- 12pm, dinner- 530pm Additional Diet Restrictions: BREAKFAST AT 7:00, LUNCH AT 12:00 Nutrition Monitoring & Eval Nutrition Goals: Eat 50-100% Meal Nutrition Follow-Up: Good Intake Nutrition Monitoring: Pt consuming 100% ALBINO diet RD Patient Assessment Time: [address] Assessment Type: RD Assessment Patient Nutrition Acuity: 3-Mild Follow Up Date: Jan 21, 2019 Nutritional Comment: 01/09 Pt admitted s/p PE. pt has hx of CHF and renal insuffiency. BUN cont elelvated at 51, creatinine elevated at 1.3. Will encourage adequate but not excessive protein. Pt is on regular diet Ate 75% in ECF. Alb 2.7. Pt has 3+ edema BLE. Anticipate wt loss when edema resolved. Pt may benefit from CHF diet. Will cont to monitor and encourage intake. BK 01/13: Pt has an elevated BUN (37). Pt is consuming on average 25-75% of ALBINO diet. Pt is refusing snacks when provided per nurses report. Weight up 3.6% from admission. -JJ 01/17: Pt experiencing SOB and A-fib. Pt is consuming 100% of ALBINO diet. -JJ EDEN,HIRAL Jan 17, 2019 10:52
[2019-01-17 16:15] VITALS: BP 92/69
[2019-01-17 21:50] VITALS: BP 115/77
[2019-01-18] MEDS: THYROID 60 MG TAB PO SCH (05:29)
[2019-01-18 07:00] VITALS: BP 105/75
[2019-01-18] MEDS: RIVAROXABAN 10 MG TAB PO SCH ×2 (08:00→21:35)
[2019-01-18] MEDS: METOPROLOL SUCC XL 25 MG TABCR PO SCH ×2 (08:00→21:36)
[2019-01-18] MEDS: AMIODARONE 200 MG TAB PO SCH (08:00)
[2019-01-18] MEDS: CETIRIZINE HCL 10 MG TAB PO SCH (08:00)
[2019-01-18] MEDS: POTASSIUM CHL 10 MEQ TABCR PO SCH ×2 (08:00→17:00)
[2019-01-18] MEDS: FUROSEMIDE 20 MG TAB PO SCH (08:01)
[2019-01-18] MEDS: FLUTICASONE PROP 0.05% 16 GM SCH ×2 (08:05→21:41)
[2019-01-18 08:53] VITALS: BP 97/65
[2019-01-18 15:15] VITALS: BP 95/45
[2019-01-18] MEDS: guaiFENesin 600 MG TABCR PO PRN ×2 (16:00→21:37)
[2019-01-19] MEDS: THYROID 60 MG TAB PO SCH (05:55)
[2019-01-19 07:20] VITALS: BP 113/75
[2019-01-19] MEDS: POTASSIUM CHL 10 MEQ TABCR PO SCH ×2 (08:19→17:43)
[2019-01-19] MEDS: METOPROLOL SUCC XL 25 MG TABCR PO SCH ×2 (08:20→21:30)
[2019-01-19] MEDS: FUROSEMIDE 20 MG TAB PO SCH (08:27)
[2019-01-19] MEDS: RIVAROXABAN 10 MG TAB PO SCH ×2 (08:29→21:31)
[2019-01-19] MEDS: AMIODARONE 200 MG TAB PO SCH (08:29)
[2019-01-19] MEDS: CETIRIZINE HCL 10 MG TAB PO SCH (08:30)
[2019-01-19] MEDS: FLUTICASONE PROP 0.05% 16 GM SCH (08:30)
[2019-01-19] MEDS: guaiFENesin 600 MG TABCR PO PRN (08:33)
[2019-01-19 14:15] VITALS: BP 105/78
[2019-01-19 20:00] VITALS: BP 113/89
[2019-01-20] MEDS: THYROID 60 MG TAB PO SCH (05:44)
[2019-01-20 08:00] VITALS: BP 94/47
[2019-01-20] MEDS: POTASSIUM CHL 10 MEQ TABCR PO SCH ×2 (08:00→17:12)
[2019-01-20] MEDS: FUROSEMIDE 20 MG TAB PO SCH (09:00)
[2019-01-20] MEDS: METOPROLOL SUCC XL 25 MG TABCR PO SCH ×2 (09:00→21:12)
[2019-01-20] MEDS: CETIRIZINE HCL 10 MG TAB PO SCH (09:01)
[2019-01-20] MEDS: FLUTICASONE PROP 0.05% 16 GM SCH (09:01)
[2019-01-20] MEDS: RIVAROXABAN 10 MG TAB PO SCH ×2 (09:01→21:12)
[2019-01-20] MEDS: AMIODARONE 200 MG TAB PO SCH (09:01)
--- NOTE | 2019-01-20 13:45 | NUR ---
14-day MDS completed with pt. C: 13, D: 05, E: no concerns, Q: no referrals made yet, pt reporting plans to DC to home, though care team reports concern for pt to DC to reside alone. [facility] arranged and pt plans to utilize services through [facility].
--- NOTE | 2019-01-20 13:51 | Medical Nutrition Therapy ---
Nutrition Anthropometrics Height (Inches): 77.00 Height (Calculated Centimeters: 195.651523 Weight (Pounds): 198 Weight (Calculated Kilograms): 90.038 BMI: 23.6 Ja Nutrition Score: Probably Inadequate Ja Nutrition Risk Score: 16 Dietary Referral Nutrition Risk Factors: Unplanned Loss >10lbs Nutrition Risk Comment: Lost 32 pounds in 9 days when put on Lasix Nutritional Diagnosis Nutritional Risk Acuity 3: Fair Appetite, Weight Loss (pt reports wt loss when put on lasix) Past Medical History: Hx atrial fibrillation, hypothyroidism, anemia, hypertension, mitral regurg, renal insuffiency, CHF Nutritional Acuity: 3-Mild Energy Requirement: 2287 (MSJ X 1.1 SF) Protein Requirement: 72 (.8gm/kg) Fluid Requirement: 2287 (1ml/kcal) Diet Type: Diet as Tolerated ALBINO/REG Nutrition Intervention: Cont diet as ordered, Encourage intake Food Likes: breakfast- 7am, lunch- 12pm, dinner- 530pm Additional Diet Restrictions: BREAKFAST AT 7:00, LUNCH AT 12:00 Nutrition Monitoring & Eval Nutrition Goals: Eat 75-100% Meal Nutrition Follow-Up: Good Intake RD Patient Assessment Time: [address] Assessment Type: RD Re-Assessment Patient Nutrition Acuity: 3-Mild Follow Up Date: Jan 28, 2019 Nutritional Comment: 01/09 Pt admitted s/p PE. pt has hx of CHF and renal insuffiency. BUN cont elelvated at 51, creatinine elevated at 1.3. Will encourage adequate but not excessive protein. Pt is on regular diet Ate 75% in ECF. Alb 2.7. Pt has 3+ edema BLE. Anticipate wt loss when edema resolved. Pt may benefit from CHF diet. Will cont to monitor and encourage intake. BK 01/13: Pt has an elevated BUN (37). Pt is consuming on average 25-75% of ALBINO diet. Pt is refusing snacks when provided per nurses report. Weight up 3.6% from admission. -JJ 01/17: Pt experiencing SOB and A-fib. Pt is consuming 100% of ALBINO diet. -JJ 01/20 Pt cont on ALBINO. Intake range 75-100% of most meals. Wt stable. Pt cont 1-2+ edema LE. Anticipate wt loss when edema resolved. Cont to monitor and encourage intake. MARSHA ZAMORA Jan 20, 2019 13:51
--- NOTE | 2019-01-20 15:26 | NUR ---
Occupational Therapy Impression Mod (I) bed mobility in/out. SBA ambulation 2x15ft with RW. (I) managing O2 tubing. (I) donning/doffing socks. Pt declined further OT intervention at this time. Reports no concerns with discharge home despite OT encouraging assist for IADLs and occasional ADLs. Occupational Therapy Goals 1) Pt will be Mod (I) UB/LB dressing. 2) Pt will be Mod (I) toilet task. 3) Pt will be Independent grooming. 4) Pt will be SBA bathing. 5) Pt Reynold Index of ADLs score will improve by two points. 6) Pt will be Mod (I) light meal prep task. 7) Pt will be Min A medication management. Patient's Goal
--- NOTE | 2019-01-20 16:00 | NUR ---
Physical Therapy Impression Pt required increased time to perform sit<>stand transfer. Pt requested to use RW instead of walking sticks as he needed "to transition" to walking sticks which will "take some time". Pt able to ambulate 125' with RW and slow kiki. Pt did not report SOB with ambulation. Pt also instructed in pursed lip breathing with re-demonstration of appropriate technique. Physical Therapy Goals 1. Mod I bed mobility. 2. Mod I transfers from a variety of surfaces. 3. SBA car transfer. 4. Mod I gait x 150' with appropriate assistive device. 5. Ascend/descend 4 stairs with 1 rail and SBA. 6. Independent O2 tubing management with functional mobility. 7. Mod I picking up an object off the floor. Patient's Goals
[2019-01-20 17:30] VITALS: BP 109/77
--- NOTE | 2019-01-20 17:35 | NUR ---
ST Encounter Pt with increased willingness to participate in structured tx tasks. Completed problem solving tasks related to pharmaceutical management with min INSOLE [employer]ER assist. Pt additionally participated in exec function tasks to promote anticipation of barriers/challenges in discharge environment. Pt somewhat limited by reduced insight with insistence that majority of meds would be discontinued prior to d/c. Reduction in insight further resulted in difficulty endorsing contributing factors related to repeated hospitalizations for successful completion of planning/prospective reasoning exercises. Discussed with RN. Recommend continued HH involvement for completion of IADLs (including med management) at discharge. Cognitive linguistic status appears to be approaching baseline, although the pt is reluctant to accepting assistance, acknowledging physical/medical deficits, etc. Goals: 1. The patient will independently complete problem solving tasks related to home safety, pharmaceutical management, and medical care to support safe discharge to least restrictive environment. 2. The patient will improve executive function skills via independent participation in planning/prospective reasoning exercises to minimize risk for repeated hospitalizations.
[2019-01-20 20:40] VITALS: BP 112/78
[2019-01-21] MEDS: THYROID 60 MG TAB PO SCH (05:31)
[2019-01-21 07:30] VITALS: BP 110/68
[2019-01-21] MEDS: POTASSIUM CHL 10 MEQ TABCR PO SCH (08:00)
[2019-01-21] MEDS: FLUTICASONE PROP 0.05% 16 GM SCH (08:54)
[2019-01-21] MEDS: CETIRIZINE HCL 10 MG TAB PO SCH (08:54)
[2019-01-21] MEDS: AMIODARONE 200 MG TAB PO SCH (08:55)
[2019-01-21] MEDS: FUROSEMIDE 20 MG TAB PO SCH (08:55)
[2019-01-21] MEDS: RIVAROXABAN 10 MG TAB PO SCH (08:55)
[2019-01-21] MEDS: METOPROLOL SUCC XL 25 MG TABCR PO SCH (08:56)
--- NOTE | 2019-01-21 11:30 | NUR ---
Physical Therapy Impression Pt has met his goals with functional mobility and notes that he plans to discharge today with no further questions regarding mobility. Pt's dtr encouraged to have pt utilize FWW rather than walking sticks for energy conservation and for safety. Physical Therapy Goals 1. Mod I bed mobility. 2. Mod I transfers from a variety of surfaces. 3. SBA car transfer. 4. Mod I gait x 150' with appropriate assistive device. 5. Ascend/descend 4 stairs with 1 rail and SBA. 6. Independent O2 tubing management with functional mobility. 7. Mod I picking up an object off the floor. Patient's Goals
[2019-01-21] MEDS ORDERED: FURO-45 PO (13:26)
[2019-01-21] MEDS ORDERED: POTA-23 PO (13:26)
[2019-01-21] MEDS ORDERED: RIVA20TA PO (13:26)
[2019-01-21] MEDS ORDERED: CETI-154 PO (13:26)
[2019-01-21] MEDS ORDERED: AMIO200T51 PO (13:26)
[2019-01-21] MEDS ORDERED: METO25TA23 PO (13:57)
[2019-01-21] MEDS ORDERED: RIVAROXABAN 10 MG TAB PO ONE (14:00)
--- NOTE | 2019-01-21 14:05 | Hospitalist Depart ---
Discharge Summary Reason for Hosp/Final Diag: (1) CHF (congestive heart failure) Status: Chronic Hospital Course & Plan: Recent echo from 01/13 shows EF of 40-45%. BNP on 01/13 w as elevated at 1400. The patient has known pHTN as well which is likely exacerbated by recent pulmonary embolism. He is on Lasix 20mg daily. He is having dyspnea on exertion which is likely multifactorial (CHF, PE, pHTN, deconditioning, recent pneumonia). He is also in atrial fibrillation. He will be sent home with home health. He will follow up with Cardiology February 04. (2) Elevated LFTs Status: Acute Hospital Course & Plan: Likely due to passive hepatic congestion. Improving. (3) Chronic atrial fibrillation Status: Chronic Hospital Course & Plan: On Xarelto 15mg bid currently. He will be sent home with one more dose of Xarelto 15mg for tonight. He will then be transitioned one day early to Xarelto 20mg daily for improved compliance with medication. (4) Mitral regurgitation Status: Chronic Hospital Course & Plan: Improved s/p MitraClip procedure. (5) History of mitral valve repair Status: Resolved Hospital Course & Plan: As above. f/u Cardiology as scheduled. (6) Pulmonary emboli Status: Acute Hospital Course & Plan: The patient was not taking Xarelto at home. Apparently only 4-5 tablets used in about 15 days. He is now back on the loading dose of Xarelto at 15mg bid, but will be transitioned to Xarelto 20mg daily 01/22. (7) Hypothyroidism Status: Chronic Hospital Course & Plan: Continue thyroid replacement medication. (8) Moderate to severe pulmonary hypertension Status: Chronic Hospital Course & Plan: His LE edema is improved. Continue oxygen and Lasix. Departure Latest Vital Signs Vital Signs 01/21/19 01/21/19 07:30 13:46 Temp 97.5 Pulse 76 Resp 16 B/P (MAP) 110/68 (82) Pulse Ox 89 O2 Delivery Nasal Cannula O2 Flow Rate 2.0 Weight (Pounds): 198 Weight (Ounces): 8.0 Condition: Improved Discharge: Home, Home Health PT/OT Follow Up For: PT For Strengthening, OT For ADL's Home Health RN Follow Up For: Medication Management, Nursing Assessment Home Health SYSTEMS SPECIALIST Follow Up For: ADL Assistance Discharge Instructions Home Meds Active Scripts Metoprolol Succinate (METOPROLOL SUCCINATE) 25 Mg Tab.er.24h, 1 TAB PO QDAY, #30 TAB Prov:WHITLEY GUERRERO [facility] 01/21/19 Potassium Chloride (KLOR-CON 10) 10 Meq Tablet.er, 10 MEQ PO DAILY, #30 TAB Prov:WHITLEY GUERRERO [facility] 01/21/19 Furosemide (FUROSEMIDE) 20 Mg Tablet, 20 MG PO QDAY, #30 TAB Prov:WHITLEY GUERRERO [facility] 01/21/19 Cetirizine Hcl (ALL DAY ALLERGY) 10 Mg Tablet, 10 MG PO QDAY, #30 TAB Prov:WHITLEY GUERRERO [facility] 01/21/19 Amiodarone Hcl (PACERONE) 200 Mg Tablet, 200 MG PO QDAY, #30 TAB Prov:WHITLEY GUERRERO [facility] 01/21/19 Rivaroxaban 20 Mg (XARELTO 20 MG) 20 Mg Tablet, 20 MG PO DAILY, #30 TAB Prov:WHITLEY GUERRERO [facility] 01/21/19 Fluticasone Prop 50 Mcg Ns (FLONASE 50 MCG NS) 16 Gm Jackson.susp, 1 SPRAY NA QDAY, #1 SPRAY Prov:WHITLEY GUERRERO [facility] 12/11/18 Kelp (KELP) 150 Mcg Tablet, 1 EA PO DAILY, #30 TAB Prov:WHITLEY GUERRERO [facility] 12/11/18 [Lactobacillus Combo No.10] 1 EA CAP No Conflict Check, 2 EA PO DAILY, #60 TAB Prov:WHITLEY GUERRERO [facility] 12/11/18 [Turmeric] 500 MG CAP No Conflict Check, 500 MG PO DAILY, #30 TAB Prov:WHITLEY GUERRERO [facility] 12/11/18 Reported Medications Thyroid,Pork (NATURE-THROID) 65 Mg Tablet, 4.5 TAB PO QDAY 12/02/18 Discontinued Reported Medications Metoprolol Tartrate (METOPROLOL TARTRATE) 25 Mg Tablet, 12.5 MG PO BID, TAB 01/02/19 Discontinued Scripts Ferrous Sulfate (FERROUS SULFATE) 325 Mg Tablet, 325 MG PO DAILY, #30 TAB Prov:WHITLEY GUERRERO [facility] 12/11/18 Aspirin (ASPIRIN EC) 81 Mg Tablet.dr, 81 MG PO QDAY, #30 TAB Prov:WHITLEY GUERRERO 12/11/18 Diet: Regular Activity: As Tolerated, With Walker Special Instructions: Take medications as prescribed. Follow up with Cardiology as scheduled. Wear oxygen at all times. Copies to: QAMAR SANCHEZ MD; WENDY CADET ; Venous Thromboembolism Antithrombotics Is Pt On Any Antithrombotics?: Yes [id number] Certification Face to Face Home Health Certification Patient's Primary Care Provider: Wendy Cadet Institutional Provider conducted the [id number] encounter. Electronic Undersigning Physician Certifies Home Health. I certify that the patient has been under my care and that I had a [id number] encounter that meets the physician [id number] encounter requirements with this patient. This patient is home-bound due to safety issues and continues to require assistance with ADL's. I certify that based on my findings, that Nursing, Aides and the following Home Health services are medically necessary. Medical Necessity: Nursing, Rehab Date Face to Face Conducted: Jan 21, 2019 WHITLEY GUERRERO Jan 21, 2019 14:05
--- NOTE | 2019-01-21 15:16 | NUR ---
OCCUPATIONAL THERAPY Dressing Assistance: Independent Dressing Aid Required: None Bathing Assistance: SBA Bathing Equipment: Extended tub bench Home Assessment: Completed at previous ECF admission Feeding Assistance: Independent Feeding Specialized Equipment: None Toilet Use: Standby Assistance Verbalizes Needs: Yes Understands Precautions: Yes Cooperative: Yes Family Teaching: Yes Occupational Therapy Comment:
--- NOTE | 2019-01-21 15:24 | OT ECF NOTE ---
Type of Note: Discharge Note Primary Medical Diagnosis: Generalized weakness s/p hospital admission Occupational Therapy Evaluation Date: 01/09/19 SUBJECTIVE: Prior Hospitalization: Pt recently discharged from [facility]. Pt returned to [facility] Med/Surg unit with dx of PE, CHF exacerbation, A-Fib. Please see [facility] for details regarding this admission from 01/01/19 thru 01/08/19. Prior Level of Function: Pt was discharged home from [facility] 12/13/18 at a Mod (I) level. He was set to receive HH services. Pt reports all was going well except for "diuretic." Daughter reports pt was not prescribed a diuretic in recent weeks at home, refused HH assist, was not eating, and generally not caring for self in recent weeks. Prior Living Status: Bi-level house Alone Community Services: Home health senior living Accessibility: Stairs with rails All needs on one level Tub/shower combination Equipment Owned: Front wheeled walker Cane Toilet riser Extended tub bench Hospital Bed Bed cane Medical Complications/Past Medical History: Please refer to EMR Psychosocial Support: Supportive daughter who resides Pain Scale (0-10): No report of pain at time of discharge OBJECTIVE: Strength: MMT: Right Left Shoulder Flexion WFL WFL Elbow Flexion WFL WFL Wrist Extension WFL WFL [employer] WFL WFL (5= normal, 4= good, 3= fair, 2= poor, 1= trace) ROM: Both upper extremities, WFL Sensation: No paresthesia reported Functional Transfer: Assistive Device: Front wheeled walker, Gait belt Transfer Ability: SBA ADL: Upper body dressing: Assistive device: None Upper body dressing ability: Independent Lower body dressing: Assistive device: None Lower body dressing ability: Independent Toileting: Assistive device: Raised toilet seat Toileting ability: SBA Grooming/hygiene: Assistive device: Standing Grooming ability: Independent Bathing: Assistive device: Sponge baths at home. Bathtub being installed. Bathing ability: N/T Standardized Assessment: Reynold Index of Activities of Daily Livin/20 upon initial evaluation (01/09/19). upon discharge (01/21/19). ASSESSMENT: "Juan José" presented to [facility] with decreased endurance and independence for ADLs/IADLs. Insurance has not authorized further days and pt is adamant that he will discharge home today. Encouraged adherence to medications and assist from HomeHealth and M[facility]. Pt reporting no further questions/concerns with regards to discharge. Problem List/Current Limitations: Decreased activity tolerance Decreased strength Generalized weakness Poor safety awareness Lack of motivation Short Term Goals: 1) Pt will be Mod (I) UB/LB dressing.Goal met. 2) Pt will be Mod (I) toilet task. Goal met. 3) Pt will be Independent grooming. Goal met. 4) Pt will be SBA bathing. Goal met. 5) Pt Reynold Index of ADLs score will improve by two points. Goal met. 6) Pt will be Mod (I) light meal prep task. Not addressed. 7) Pt will be Min A medication management. Addressed with speech therapy. Shelter Goals: Return to least restrictive environment-Pt will require increased assist if plans to discharge home, pt resistant to outside assistance and hx of noncompliance Patient Goals: "Get off this oxygen" Rehabilitation Prognosis: Good Barriers to Discharge: Pt's reluctance to utilize recommended adaptive equipment and therapy interventions to increase safety and independence with functional mobility. PLAN: The patient will discharge home with HomeHealth and M[facility]. Pt and daughter were frequently educated and encouraged to compliance for ADLs/IADLs. Thank you for this referral. If you have any questions, concerns, or comments about this report or plan, please contact me at . Hoda Fang MS, OTR/L Occupational Therapist [place]
--- NOTE | 2019-01-22 08:56 | NUR ---
DC MDS completed with pt. C: 13, D: 04, E: no concerns, Q: HHS and home delivered meals arranged.
--- NOTE | 2019-01-22 14:19 | PT ECF NOTE ---
Type of Note: Discharge Note Primary Medical Diagnosis: PE, CHF exacerbation, A-Fib, s/p Mitral valve clipping 11/2018 Physical Therapy Evaluation Date: 01/08/19 SUBJECTIVE: Prior Hospitalization: Pt recently discharged from [facility] E[facility]. Pt returned to [facility] Med/Surg unit with dx of PE, CHF exacerbation, A-Fib. Please see [facility] for details regarding this admission from 01/01-. Prior Level of Function: Pt Mod I with functional mobility using either a RW or walking sticks for ambulation. Pt was receiving home health therapy services. Prior Living Status: Single level house, Alone Community Services: Home health [facility] Accessibility: 4 Stairs with rail, Pt has placed blocks on each step to make "half steps" Equipment Owned: Front wheeled walker, Walking sticks Medical Complications/Past Medical History: Please see [employer] Psychosocial Support: Supportive daughter who lives in [place] Pain Scale (0-10): Pt denies pain OBJECTIVE: Bed Mobility: Modified indep with head of bed to 40 degrees similar to bed at home Assistive device: Head of bed elevated Transfers: Modified indep Assistive Device: Front wheeled walker Gait: Modified indep x 150' Assistive device: Front wheeled walker Stairs: Tolerated up/down small height steps with B) rails and SBA/Modified indep Timed Up and Go (>12 seconds indicated increased risk for falls): 10 meter walk test (0.6m/second cannot function independently): n/a ASSESSMENT: Pt has demonstrated the capacity to complete ADL's with safe mobility when indicated to be able to discharge home. Pt typically prefers to remain fairly sedentary and requires encouragement to participate in any additional activity throughout the day. Pt would certainly benefit from further rehab in the home environment to ensure further safety awareness skills and transition to increased indep with participation in basic ADL's. Problem List/Current Limitations: Decreased activity tolerance, Decreased strength, Generalized weakness, Poor safety awareness, Shortness of breath Short Term Goals: (Met with final visit; Pt completed car transfer with nursing) 1. Mod I bed mobility. 2. Mod I transfers from a variety of surfaces. 3. SBA car transfer. 4. Mod I gait x 150' with appropriate assistive device. 5. Ascend/descend 4 stairs with 1 rail and SBA. 6. Independent O2 tubing management with functional mobility. 7. Mod I picking up an object off the floor. Prison Goals: Return home Patient Goals: "Be able to get into a car". Pt's daughter state she wants him to be able to manage O2 out of the home. Rehabilitation Prognosis: Fair Barriers for Discharge: Pt's reluctance to utilize recommended adaptive equipment and therapy interventions to increase safety and independence with functional mobility continues to be a concern. PLAN: Pt feels that he is at a suitable level of functional mobility to be successful in the home environment. Pt requests to d/c home with assist from daughter today and notes that he will have [facility] initially. Thank you for this referral. If you have any questions, concerns, or comments about this report or plan, please contact me at . h. Nneka Esteves, PT, MPT, OMS [place]
[2019-01-24] MEDS ORDERED: RIVAROXABAN 10 MG TAB PO SCH (09:00)
== END 2019-01-21 15:15 | disposition home or self-care (01) | DRG 175 ==
LOC: ECF 14:20
PROVIDERS: ADMIT Internal Medicine; ATTEND Internal Medicine
DX: I26.99 Other pulmonary embolism without acute cor pulmonale (principal); I50.21 Acute systolic (congestive) heart failure; N17.9 Acute kidney failure, unspecified; I48.2 Chronic atrial fibrillation; I34.1 Nonrheumatic mitral (valve) prolapse; D50.9 Iron deficiency anemia, unspecified; E03.9 Hypothyroidism, unspecified; I27.20 Pulmonary hypertension, unspecified; T45.516A Underdosing of anticoagulants, initial encounter; Z88.0 Allergy status to penicillin; Z91.138 Patient's unintentional underdosing of medication regimen for other reason
CPT/HCPCS: 36415; 36600; 71045; 71275; 81001; 82040; 82247; 82310; 82374; 82435; 82565; 82803; 82947; 83880; 84075; 84132; 84155; 84295; 84450; 84460; 84484; 84520; 85025; 92523; 93005; 93308; 97163; 97166; J7050; Q9967

== ENCOUNTER 2019-02-02 14:38 | Emergency (ER) | payer MEDICARE ==
[2019-01-02 15:17] VITALS: Wt 93.0 kg
[~2019-02-02 14:38] MED LIST changes: +AMIO200T51 PO; +CETI-154 PO; +POTA-23 PO
[2019-02-02 16:10] VITALS: BP 112/95
[2019-02-02] MEDS ORDERED: FUROSEMIDE 20 MG/2 ML VIAL IVP ONE (16:30)
--- NOTE | 2019-02-02 16:41 | EKG ---
FACILITY: [facility] - [place], [place] PATIENT NAME: BENEDICTO CRISTOBAL : [id number] MR: [id number] V: [id number] EXAM DATE: ORDERING PHYSICIAN: FEI TRAN TECHNOLOGIST: SULTANA Test Reason : RETAINING FLUID Blood Pressure : / mmHG Vent. Rate : 068 BPM Atrial Rate : 102 BPM P-R Int : 000 ms QRS Dur : 166 ms QT Int : 518 ms P-R-T Axes : 000 120 127 degrees QTc Int : 550 ms Atrial fibrillation Right bundle branch block T wave abnormality, consider inferior ischemia or digitalis effect Abnormal ECG When compared with ECG of 13-JAN-2019 10:06, Criteria for Lateral infarct are no longer present T wave inversion now evident in Inferior leads Confirmed by Oni Jara ([id number]) on 02/03/2019 12:23:08 AM Referred By: CHELSEA Confirmed By:Oni Ceballos
--- NOTE | 2019-02-02 16:41 | ER Report ---
History and Physical Time Seen By MD: 16:03 Hx. of Stated Complaint: EDEMA HPI/ROS CHIEF COMPLAINT: Lower extremity edema HISTORY OF PRESENT ILLNESS: 78-year-old male who is status post mitral valve replacement in October has had ongoing lower extremity edema that is worsening and he has had blisters with rupture and increased pain over the past couple days. Patient states that this has been gradually worsening despite taking an additional Lasix last night. He states his swelling is slightly improved but tenseness has continued. He has weeping blisters that have been changed and his home health care nurse recommended he come here for evaluation. He has no chest pain, shortness of breath, fevers, chills, abdominal pain, nausea, vomiting. He has no change in urine output and denies change in by mouth intake. REVIEW OF SYSTEMS: Constitutional: No fever, no chills. Eyes: no blurred vision ENT: no difficulty swallowing Cardiovascular: no chest pain, palpitations Respiratory: No cough, no shortness of breath. Gastrointestinal: No abdominal pain, no vomiting. Genitourinary: no dysuria Musculoskeletal: No back pain LE edema throughout Skin: LE excoriations Neurological: No headache. Remainder of the 14 system rev: Yes Allergies: Coded Allergies: Penicillins (Verified Allergy, Unknown, 02/02/19) Home Meds Active Scripts Metoprolol Succinate (METOPROLOL SUCCINATE) 25 Mg Tab.er.24h, 1 TAB PO QDAY, #30 TAB Prov:WHITLEY GUERRERO [facility] 01/21/19 Potassium Chloride (KLOR-CON 10) 10 Meq Tablet.er, 10 MEQ PO DAILY, #30 TAB Prov:WHITLEY GUERRERO [facility] 01/21/19 Furosemide (FUROSEMIDE) 20 Mg Tablet, 20 MG PO QDAY, #30 TAB Prov:WHITLEY GUERRERO [facility] 01/21/19 Cetirizine Hcl (ALL DAY ALLERGY) 10 Mg Tablet, 10 MG PO QDAY, #30 TAB Prov:WHITLEY GUERRERO [facility] 01/21/19 Amiodarone Hcl (PACERONE) 200 Mg Tablet, 200 MG PO QDAY, #30 TAB Prov:WHITLEY GUERRERO [facility] 01/21/19 Rivaroxaban 20 Mg (XARELTO 20 MG) 20 Mg Tablet, 20 MG PO DAILY, #30 TAB Prov:WHITLEY GUERRERO [facility] 01/21/19 Fluticasone Prop 50 Mcg Ns (FLONASE 50 MCG NS) 16 Gm Orr.susp, 1 SPRAY NA QDAY, #1 SPRAY Prov:WHITLEY GUERRERO [facility] 12/11/18 Kelp (KELP) 150 Mcg Tablet, 1 EA PO DAILY, #30 TAB Prov:WHITLEY GUERRERO [facility] 12/11/18 [Lactobacillus Combo No.10] 1 EA CAP No Conflict Check, 2 EA PO DAILY, #60 TAB Prov:WHITLEY GUERRERO [facility] 12/11/18 [Turmeric] 500 MG CAP No Conflict Check, 500 MG PO DAILY, #30 TAB Prov:WHITLEY GUERRERO [facility] 12/11/18 Reported Medications Thyroid,Pork (NATURE-THROID) 65 Mg Tablet, 4.5 TAB PO QDAY 12/02/18 Reviewed Nurses Notes: Yes Old Medical Records Reviewed: Yes Hx Smoking: Yes Smoking Status: Former Smoker Hx Substance Use Disorder: No Hx Alcohol Use: Yes Constitutional Vital Sign - Last 24 Hours 02/02/19 02/02/19 16:10 16:15 Temp 97.3 Pulse 81 Resp 20 B/P (MAP) 112/95 Pulse Ox 89 O2 Delivery Nasal Cannula O2 Flow Rate 2.0 Physical Exam General Appearance: The patient is alert, has no immediate need for airway protection and no signs of toxicity. Eyes: Pupils equal and round no pallor or injection. ENT, Mouth: Mucous membranes are moist. Respiratory: There are no retractions, lungs are clear to auscultation. Cardiovascular: irregular rhythm, diastolic murmur Gastrointestinal: abdomen is soft, nontender Neurological: alert, oriented Skin: Warm and dry, no rashes with exception of bilateral lower extremity erythema, edema, large blisters well covered and spontaneously drained. No focal cellulitis or fluctuance Musculoskeletal: edema throughout lower extremities to mid thigh. Palpable DP pulses bilat. DIFFERENTIAL DIAGNOSIS: After history and physical exam differential diagnosis was considered for cellulitis, abscess, fluid overload due to renal failure, diet change, chf, or other emergent etiology. Medical Decision Making Data Points Result Diagram: 02/02/19 1723 02/02/19 1723 Laboratory Hematology Test 02/02/19 17:23 Red Blood Count 5.04 M/uL (4.00-5.60) Mean Corpuscular Volume 93.7 fL (80.0-96.0) Mean Corpuscular Hemoglobin 30.8 pg (26.0-33.0) Mean Corpuscular Hemoglobin Concent 32.9 g/dL (32.0-36.0) Red Cell Distribution Width 16.5 % (11.5-14.5) Mean Platelet Volume 7.3 fL (7.2-11.1) Neutrophils (%) (Auto) 75.4 % (39.4-72.5) Lymphocytes (%) (Auto) 11.3 % (17.6-49.6) Monocytes (%) (Auto) 10.0 % (4.1-12.4) Eosinophils (%) (Auto) 2.0 % (0.4-6.7) Basophils (%) (Auto) 1.3 % (0.3-1.4) Nucleated RBC Relative Count (auto) 0.0 /100WBC Neutrophils # (Auto) 4.0 K/uL (2.0-7.4) Lymphocytes # (Auto) 0.6 K/uL (1.3-3.6) Monocytes # (Auto) 0.5 K/uL (0.3-1.0) Eosinophils # (Auto) 0.1 K/uL (0.0-0.5) Basophils # (Auto) 0.1 K/uL (0.0-0.1) Nucleated RBC Absolute Count (auto) 0.00 K/uL Sodium Level 137 mmol/L (137-145) Potassium Level 4.3 mmol/L (3.5-5.0) Chloride Level 100 mmol/L (98-107) Carbon Dioxide Level 32 mmol/L (22-30) Blood Urea Nitrogen 29 mg/dl (9-21) Creatinine 1.20 mg/dl (0.66-1.25) Glomerular Filtration Rate Calc 58.4 Random Glucose 80 mg/dl (75-110) Calcium Level 8.8 mg/dl (8.4-10.2) B-Type Natriuretic Peptide 991 pg/ml (0-100) Chemistry Test 02/02/19 17:23 White Blood Count 5.4 k/uL (4.5-11.0) Red Blood Count 5.04 M/uL (4.00-5.60) Hemoglobin 15.6 g/dL (14.0-18.0) Hematocrit 47.3 % (42.0-52.0) Mean Corpuscular Volume 93.7 fL (80.0-96.0) Mean Corpuscular Hemoglobin 30.8 pg (26.0-33.0) Mean Corpuscular Hemoglobin Concent 32.9 g/dL (32.0-36.0) Red Cell Distribution Width 16.5 % (11.5-14.5) Platelet Count 170 K/uL (150-450) Mean Platelet Volume 7.3 fL (7.2-11.1) Neutrophils (%) (Auto) 75.4 % (39.4-72.5) Lymphocytes (%) (Auto) 11.3 % (17.6-49.6) Monocytes (%) (Auto) 10.0 % (4.1-12.4) Eosinophils (%) (Auto) 2.0 % (0.4-6.7) Basophils (%) (Auto) 1.3 % (0.3-1.4) Nucleated RBC Relative Count (auto) 0.0 /100WBC Neutrophils # (Auto) 4.0 K/uL (2.0-7.4) Lymphocytes # (Auto) 0.6 K/uL (1.3-3.6) Monocytes # (Auto) 0.5 K/uL (0.3-1.0) Eosinophils # (Auto) 0.1 K/uL (0.0-0.5) Basophils # (Auto) 0.1 K/uL (0.0-0.1) Nucleated RBC Absolute Count (auto) 0.00 K/uL Glomerular Filtration Rate Calc 58.4 Calcium Level 8.8 mg/dl (8.4-10.2) B-Type Natriuretic Peptide 991 pg/ml (0-100) EKG/Imaging EKG Interpretation 12 lead EKG: Rhythm: atrial fibrillation [place]: right QRS: widened, rbbb ST segments: no acute changes Monitor Interpretation: Atrial Fibrillation ED Course/Re-evaluation ED Course Pt has peripheral edema without sgs of acute pulm edema, with persistent r pleural effusion, and LE's well cared for without sgs of cellulitis or abscess. After administration of IV lasix in ED, pt urinates appropriately; is hd stable and reasonable for d/c. Pt is comfortable with this plan. Recommend continued close monitoring for cellulitis, amount of edema. Decision to Disposition Date: Feb 02, 2019 Decision to Disposition Time: 18:30 Depart Departure Latest Vital Signs Vital Signs Date Time Temp Pulse Resp B/P (MAP) Pulse Ox O2 Delivery O2 Flow Rate FiO2 02/02/19 16:15 2.0 02/02/19 16:10 97.3 81 20 112/95 89 Nasal Cannula Impression: Primary Impression: Peripheral edema Condition: Improved Disposition: HOME OR SELF-CARE Referrals: WHIT PATTERSON (PCP) 2 Days Patient Instructions: Leg Edema (ED) Additional Instructions: As we discussed, I do not currently see signs of infection, though you are at risk for it so please return if you have worsening redness, pain, swelling or draining pus from your leg. Please continue to take your normal Lasix dose though if you have increased fluid or swelling may double up on your dose again. Please follow-up with your primary doctor in 2 days for reevaluation. Please return for chest pain, trouble breathing or any concerns. FEI TRAN MD Feb 02, 2019 16:41
[2019-02-02 17:34] LABS: PLATELET COUNT, AUTOMATED 170 K/uL (150-450)
--- NOTE | 2019-02-02 17:42 | RADIOLOGY IMAGING REPORT ---
FACILITY: [facility] PATIENT NAME: Samuel Izaguirre : 1940 MR: [id number] V: [id number] EXAM DATE: ORDERING PHYSICIAN: FEI TRAN TECHNOLOGIST: [place] [facility] [place] Izagu[place] : 1940 Visit/Account:[id number] Date of Sevice: 02/02/2019 CHEST SINGLE AP Indication: Dyspnea.. Comparison: 01/11/2019. Findings: Cardiac silhouette remains enlarged but unchanged. Mediastinal silhouette and pulmonary vessels with in normal limits. Overlying the left cardiac silhouette are three metallic clips which are stable. There is persistent small moderate right pleural effusion with right basal atelectasis. The right up per lobe is clear. The left lung is clear. There is underlying chronic interstitial changes. No discrete left pleural effusion. No pneumothorax. No discrete nodule. Upper abdomen is unremarkable. No acute bony abnormality. Degenerative change seen in both shoulder s. IMPRESSION: 1. Persistent small to moderate right pleural effusion with right basal atelectasis. 2. Stable enlarged heart silhouette without discrete edema. Report Dictated By: Kendall Harding at 02/02/2019 5:37 PM Report E-Signed By: Kendall Harding at 02/02/2019 5:39 PM WSN:[id number]
== END 2019-02-02 19:35 | disposition home or self-care (01) ==
LOC: ER 16:23
DX: R60.0 Localized edema (principal)
CPT/HCPCS: 71045; 83880; 85025; 93005; 96374; 99283; J1940; 82310; 82374; 82435; 82565; 82947; 84132; 84295; 84520

== ENCOUNTER → 2019-02-12 | Outpatient (REF) | payer MEDICARE ==
[2019-01-02 15:17] VITALS: BMI 23.8
== END ==
LOC: ZZSENDIN 17:46
PROVIDERS: ATTEND Nurse Practitioner Family
DX: E03.9 Hypothyroidism, unspecified (principal); I50.9 Heart failure, unspecified; I10 Essential (primary) hypertension
CPT/HCPCS: 82040; 82247; 82310; 82374; 82435; 82565; 82947; 84075; 84132; 84155; 84295; 84443; 84450; 84460; 84520

== ENCOUNTER → 2019-04-02 | Outpatient (CLI) | payer MEDICARE ==
[2019-01-02 15:17] VITALS: BMI 23.8
[2019-04-02 14:15] LABS: PLATELET COUNT, AUTOMATED 203 K/uL (150-450)
== END ==
LOC: LAB 13:43
PROVIDERS: ATTEND Internal Medicine
DX: I50.9 Heart failure, unspecified (principal); I26.99 Other pulmonary embolism without acute cor pulmonale; I48.2 Chronic atrial fibrillation; Z98.890 Other specified postprocedural states; E03.9 Hypothyroidism, unspecified; I27.21 Secondary pulmonary arterial hypertension
CPT/HCPCS: 36415; 82040; 82247; 82310; 82374; 82435; 82465; 82565; 82947; 83718; 84075; 84132; 84155; 84295; 84439; 84443; 84450; 84460; 84478; 84520; 85025

== ENCOUNTER → 2019-04-23 | Outpatient (CLI) | payer MEDICARE ==
[2019-01-02 15:17] VITALS: BMI 23.8
== END ==
LOC: US 00:59
PROVIDERS: ATTEND Internal Medicine Cardiovascular Disease
DX: I27.20 Pulmonary hypertension, unspecified (principal)
CPT/HCPCS: 93306

== ENCOUNTER → 2019-06-09 | Outpatient (CLI) | payer MEDICARE ==
[2019-01-02 15:17] VITALS: BMI 23.8
[~2019-06-09] MED LIST changes: +LEVO-3 PO; +OXYGENHOME INH
[2019-06-09 11:32] LABS: PLATELET COUNT, AUTOMATED 235 K/uL (150-450)
== END ==
LOC: LAB 11:04
PROVIDERS: ATTEND Internal Medicine
DX: I48.2 Chronic atrial fibrillation (principal); I27.21 Secondary pulmonary arterial hypertension; I50.9 Heart failure, unspecified
CPT/HCPCS: 36415; 82040; 82247; 82310; 82374; 82435; 82565; 82947; 83880; 84075; 84132; 84155; 84295; 84439; 84443; 84450; 84460; 84520; 85025

== ENCOUNTER → 2019-06-27 | Outpatient (CLI) | payer MEDICARE ==
[2019-01-02 15:17] VITALS: BMI 23.8
--- NOTE | 2019-06-27 13:19 | EKG ---
[place] [facility] [place] NAME[place] BENEDICTO CRISTOBAL : [id number] MR: [id number] V: [id number] EXAM DATE: ORDERING PHYSICIAN: TEO PERKINS TECHNOLOGIST: KEON Test Reason : SOB\ DIZZINESS Blood Pressure : / mmHG Vent. Rate : 077 BPM Atrial Rate : 087 BPM P-R Int : 000 ms QRS Dur : 182 ms QT Int : 490 ms P-R-T Axes : 000 120 020 degrees QTc Int : 554 ms Atrial fibrillation Right bundle branch block Abnormal ECG No previous ECGs available Referred By: TEO PERKINS Confirmed By:
== END ==
LOC: RESP 11:33
PROVIDERS: ATTEND Nurse Practitioner Primary Care
DX: R94.31 Abnormal electrocardiogram [ECG] [EKG] (principal)
CPT/HCPCS: 93005

== ENCOUNTER → 2019-06-27 | Outpatient (CLI) | payer MEDICARE ==
[2019-01-02 15:17] VITALS: BMI 23.8
[~2019-06-27] MED LIST changes: +LOSA25TA57 PO
[2019-06-27 11:49] LABS: PLATELET COUNT, AUTOMATED 237 K/uL (150-450)
== END ==
LOC: LAB 11:15
PROVIDERS: ATTEND Nurse Practitioner Primary Care
DX: R06.02 Shortness of breath (principal); I50.9 Heart failure, unspecified
CPT/HCPCS: 36415; 82040; 82247; 82310; 82374; 82435; 82565; 82947; 83880; 84075; 84132; 84155; 84295; 84443; 84450; 84460; 84520; 85025